=== PATIENT | male | born 1960 | race Caucasian/White ===

== ENCOUNTER 2022-07-04 06:17 | Day surgery (SDC) | payer OTHER, SELFPAY ==
[2022-07-04 06:19] VITALS: BMI 40.8
[2022-07-04 06:32] VITALS: BP 163/89; PULSE 100; RESP 18; TEMP 36.6; O2SAT 95
[2022-07-04] MEDS: Lactated Ringers 1,000 ML 100 ML IVCONT (07:05)
--- NOTE | 2022-07-04 07:37 | MHC.SHP ---
Pre-Procedural Eval Section A Date of Service: 07/04/22 Section B Chief Complaint: Generalized abdominal pain,screening,reflux diseas Details of Present Illness: see H*P no changes Relevant Family History (Specify if Yes): No Relevant Social History: None Present Medications: see Short Stay Collaborative assessment Medical History: No relevant PMH History of Previous Operations: No relevant previous surgery Allergies: Allergies Allergy/AdvReac Type Severity Reaction Status Date / Time Sulfa (Sulfonamide Allergy Unknown HIVES Verified 07/04/22 07:08 Antibiotics) [SULFA (SULFONAMIDE ANTIBIOTICS)] lisinopril Allergy Wheezing Verified 07/04/22 07:07 sulfamethoxazole Allergy Weakness Verified 07/04/22 07:07 [From Bactrim] trimethoprim [From Bactrim] Allergy Weakness Verified 07/04/22 07:07 Review of Systems Sugical H&P ROS: Negative: Constitution, Cardiovascular, Respiratory, Neurological, Psychiatric, Hem-Onc, Allergic/Immunologic, Gastrointestinal, Genitourinary, Musculoskeletal, Integumentary, Endocrine and Eyes/Ears/Nose/Throat Exam Surgical H&P Exam: Normal: HEENT, Normal: Heart, Normal: Lungs, Normal: Extremities, Normal: Abdomen, Normal: Skin and Normal: Neurological Plan Diagnosis/Plan: Unchanged I have reviewed the history and physical and performed a pertinent physical examination on my patient. No changes have occurred unless specified. Time Spent With Patient Time: Total time managing care of this patient today ____ minutes.
[2022-07-04 08:19] VITALS: BP 117/73; PULSE 108; RESP 16; TEMP 36.2; O2SAT 94
--- NOTE | 2022-07-04 08:29 | PM.OP ---
Brief Operative Note Date of Service: 07/04/22 Pre-op diagnosis: gerd, screening Post-op diagnosis: same Procedure: egd colonoscopy Surgeon: Reyes Laws Anesthesia: MAC Was an Commercial Loan Officer used for this Procedure?: No Estimated blood loss (mL): 5 Pathology: other Condition: stable Disposition: PACU
[2022-07-04 08:34] VITALS: BP 132/70; PULSE 80; RESP 16; TEMP 36.5; O2SAT 96
--- NOTE | 2022-07-04 08:56 | OP_ITS ---
SURGEON: Reyes Laws MD INDICATIONS: Abdominal pain, gastroesophageal reflux disease and colon cancer screening. PREOPERATIVE DIAGNOSIS: POSTOPERATIVE DIAGNOSIS: PROCEDURE PERFORMED: ESTIMATED BLOOD LOSS: COMPLICATIONS: ANESTHESIA: Monitored anesthesia care. ASSISTANTS: SPECIMENS: PROCEDURE: Upper endoscopy with biopsy, colonoscopy to the terminal ileum with biopsy. DESCRIPTION OF PROCEDURE: Date 07/04/22. History and physical performed. The risks and benefits of the procedure were explained to the patient. Informed consent was obtained. The patient was placed in left lateral decubitus position. The Olympus video gastroscope was introduced into the esophagus, stomach, and duodenum. Examination was performed. The scope was removed. He tolerated the procedure well and was repositioned for colonoscopy. A digital rectal exam was performed and was found to be normal. The Olympus pediatric video colonoscope was introduced into the rectum and advanced to the cecum without difficulty. The cecum was identified by transillumination, palpation, and identification of ileocecal valve. Examination was performed. The scope was removed. He tolerated the procedure well and was transferred to recovery area in stable condition. FINDINGS: UPPER ENDOSCOPY: Esophagus: The esophagus was normal. Biopsies were obtained from the EG junction. Stomach: The stomach showed several benign-appearing gastric polyps. The largest measured approximately 10 mm. These were in the body and fundus consistent with fundic gland polyps. Biopsies were obtained from 2 of the polyps. Antral biopsies were obtained to evaluate for H pylori. Duodenum: The bulb and second portion were normal. COLONOSCOPY: The terminal ileum was examined and appeared normal. The visualized colonic mucosa was normal. The quality of prep was good. There was a single polyp in the right colon measuring less than 5 mm, which was removed with biopsy forceps. No other polyps were identified. There was moderate diverticulosis of the sigmoid. The quality of the prep was good. Retroflexed examination showed moderate-sized internal hemorrhoids. IMPRESSION: 1. Gastroesophageal reflux disease. 2. Gastric polyps. 3. Colon polyp. RECOMMENDATION: Follow up the biopsy results. MD FAISAL Jolley/LEXI / [id number] MTDAna
--- NOTE | 2022-07-04 12:53 | HO.ANESPROP2 ---
FORMERLY [facility] Past Medical History Medical History (Updated 07/03/22 @ 11:51 by Stephanie Lux RN) Asthma Diverticulitis Diverticulosis GERD (gastroesophageal reflux disease) HTN (hypertension) Hyperlipidemia Hypothyroidism Family History Family history of problems with anesthesia: No Surgical History Surgical History (Updated 07/03/22 @ 11:51 by Stephanie Lux RN) H/O cardiac catheterization H/O colonoscopy H/O esophagogastroduodenoscopy History of Problems with Anesthesia: No Social History Social History Patient Tobacco Use Status: Former Tobacco user Are you DNR?: No Advance Directives: No Advance Directives Information Provided: Yes Recently lost weight without trying: No Nutrition Risks: No Nutritional Risk Meds Allergies Allergy/AdvReac Type Severity Reaction Status Date / Time Sulfa (Sulfonamide Allergy Unknown HIVES Verified 07/04/22 07:08 Antibiotics) [SULFA (SULFONAMIDE ANTIBIOTICS)] lisinopril Allergy Wheezing Verified 07/04/22 07:07 sulfamethoxazole Allergy Weakness Verified 07/04/22 07:07 [From Bactrim] trimethoprim [From Bactrim] Allergy Weakness Verified 07/04/22 07:07 Home Medications Medication Instructions Recorded Confirmed Last Taken Type albuterol sulfate 90 mcg/actuation 1 puff inhalation Q3-6H PRN 07/03/22 07/04/22 06/27/22 History aerosol inhaler Wheezing amlodipine 10 mg tablet 1 tab PO DAILY 07/03/22 07/03/22 07/03/22 History aspirin 81 mg tablet,delayed 81 mg PO DAILY 07/03/22 07/04/22 06/27/22 History release levothyroxine 75 mcg tablet 1 tab PO DAILY 07/03/22 07/03/22 07/03/22 History rosuvastatin 10 mg tablet 1 tab PO BEDTIME 07/03/22 07/03/22 07/03/22 History valsartan 50 mg PO DAILY 07/03/22 07/04/22 07/03/22 History Exam Exam Date and Time: July 04, 2022 1253 Height,Weight and Vital Signs: Height 5 ft 4 in Weight 107.955 kg Last Vital Signs Temp 97.7 F 07/04/22 08:34 Pulse 80 07/04/22 08:34 Resp 16 07/04/22 08:34 BP 132/70 07/04/22 08:34 Pulse Ox 96 07/04/22 08:34 O2 Del Method 07/04/22 08:34 Airway Mallampati Class: II TM Dist: >3cm Partial: Upper Heart: rr Lungs: cta Assessment and Plan Final Anesthetic Review Family History of Problems with Anesthesia: No History of Problems with Anesthesia: No NPO: Yes ASA Class: II Final Preanesthetic Review: No Changes in Pt Med Stat, Meds/Allgs Chart Reviewed, Consent Obtained/Reviewed and Anes Risks/Benef Reviewed Patient Risk: Low Procedure Risk: Low Anesthetic Plan Anesthetic Plan: MAC: Disposition: Standard PACU
== END 2022-07-04 10:31 | disposition home or self-care (01) ==
PROVIDERS: PCP Internal Medicine; Visit Provider Internal Medicine Gastroenterology
PROC: (CPT 45380; principal; 2022-07-04 07:30)
DX: Z12.11 Encounter for screening for malignant neoplasm of colon (principal); Z83.71 Family history of colonic polyps; K63.5 Polyp of colon; K57.30 Diverticulosis of large intestine without perforation or abscess without bleeding; K64.8 Other hemorrhoids; R10.84 Generalized abdominal pain; K21.9 Gastro-esophageal reflux disease without esophagitis; K31.7 Polyp of stomach and duodenum; Z87.19 Personal history of other diseases of the digestive system; I10 Essential (primary) hypertension; E78.00 Pure hypercholesterolemia, unspecified; E03.9 Hypothyroidism, unspecified; J45.909 Unspecified asthma, uncomplicated; Z79.82 Long term (current) use of aspirin; Z79.899 Other long term (current) drug therapy; Z88.1 Allergy status to other antibiotic agents; Z88.2 Allergy status to sulfonamides; Z87.891 Personal history of nicotine dependence; Z86.16 Personal history of COVID-19
CPT/HCPCS: 45380; 43239; 88305; 88342; J2370

== ENCOUNTER 2022-07-30 08:23 | Outpatient (REF) | payer OTHER, SELFPAY ==
--- NOTE | ~2022-07-30 | US_ITS ---
EXAMINATION: US ABDOMEN COMPLETE CLINICAL INFORMATION: Abdominal pain. COMPARISON: X-ray abdomen KUB 02/21/2020. CT abdomen and pelvis 09/09/2017. Ultrasound abdomen 05/02/2013. TECHNIQUE: Real-time imaging of the abdominal viscera. FINDINGS: PANCREAS: The pancreas appears unremarkable, without masses or ductal dilatation, with the exception of the tail which is obscured by bowel gas. ABDOMINAL AORTA: The proximal, mid, and distal segments are normal in caliber. INFERIOR VENA CAVA: Visualized portions are normal. LIVER: The liver is enlarged measuring at least 19 cm in greatest dimension. The liver contour is normal. There is diffuse increased liver parenchymal echogenicity, consistent with hepatic steatosis. No focal hepatic lesion. There is no intrahepatic biliary duct dilatation seen. GALLBLADDER: Normal. The gallbladder is physiologically distended without evidence of stones, sludge, polyps, wall thickening or pericholecystic fluid. COMMON BILE DUCT: Normal in caliber measuring 0.7 cm in diameter. RIGHT KIDNEY: A 1.7 cm benign Bosniak class I parapelvic renal cyst is present which needs no additional imaging or followup. No solid renal masses. No hydronephrosis or renal calculi. The kidney measures 11.5 cm in maximum dimension. LEFT KIDNEY: Normal. No hydronephrosis. No renal calculi or focal parenchymal lesions. The kidney measures 11.4 cm in maximum dimension. SPLEEN: Normal. The spleen measures 10.9 cm in maximum dimension. FREE FLUID: None. US/US abdomen complete IMPRESSION: Enlarged fatty liver. Similar findings were present on the 09/09/2017 CT scan.
== END 2022-07-30 08:24 | disposition home or self-care (01) ==
LOC: HO.US 08:23
PROVIDERS: PCP Internal Medicine; Visit Provider Internal Medicine Gastroenterology
DX: R10.84 Generalized abdominal pain (principal)
CPT/HCPCS: 76700

== ENCOUNTER 2023-08-20 03:42 | Emergency (ER) | payer OTHER, SELFPAY ==
--- NOTE | ~2023-08-20 | US_ITS ---
EXAMINATION: US ABDOMEN LIMITED CLINICAL INFORMATION: Right upper quadrant pain. COMPARISON: CT scan of September 09, 2017 TECHNIQUE: Real-time imaging of the right upper quadrant abdominal viscera. FINDINGS: PANCREAS: Unremarkable. No abnormal mass or peripancreatic inflammatory change. LIVER: The liver is normal in size. The liver contour is normal. There is homogeneously increased echogenicity consistent with fatty infiltration. No focal hepatic lesion. There is no intrahepatic biliary duct dilatation seen. GALLBLADDER: Normal. The gallbladder is physiologically distended without evidence of stones, sludge, polyps, wall thickening or pericholecystic fluid. COMMON BILE DUCT: Normal in caliber measuring 0.7 cm in diameter. RIGHT KIDNEY: Normal. No hydronephrosis. No renal calculi or focal parenchymal lesions. The kidney measures 10.7 cm in maximum dimension. FREE FLUID: None. US/US abdomen limited IMPRESSION: Diffuse fatty infiltration of the liver. No evidence of acute pancreatitis, acute cholecystitis, or biliary ductal dilatation.
--- NOTE | ~2023-08-20 | XR_ITS ---
EXAMINATION: XR CHEST CLINICAL INFORMATION: Chest pain. COMPARISON: 09/19/2016. TECHNIQUE: 2 views of the chest were obtained. FINDINGS: The cardiomediastinal silhouette is stable. There is right middle lobe scarring. Lungs are otherwise clear. The bony structures and soft tissues are unremarkable. XR/XR chest 2V IMPRESSION: Right middle lobe scarring. No acute cardiopulmonary process.
[2023-08-20 03:48] VITALS: BP 177/81; PULSE 80; RESP 14; TEMP 36.7; O2SAT 97; BMI 43.7
--- NOTE | 2023-08-20 03:50 | ECG_ITS ---
Test Reason : chest pain Blood Pressure : / mmHG Vent. Rate : 072 BPM Atrial Rate : 072 BPM P-R Int : 192 ms QRS Dur : 102 ms QT Int : 396 ms P-R-T Axes : 053 000 055 degrees QTc Int : 433 ms Normal sinus rhythm with sinus arrhythmia Inferior infarct (cited on or before 09-SEP-2017) Abnormal ECG When compared with ECG of 21-FEB-2020 21:10, No significant change was found Referred By: Generic ED Physician Electronically Signed By:BO YANES
[2023-08-20 04:10] LABS: MANUAL DIFF FLAG NO
[2023-08-20 04:13] LABS: Basophils Absolute Auto 0.1 X10*3/uL (0.0-0.2); Basophils Percent Auto 0.6 % (0-2); Eosinophils Absolute Auto 0.2 X10*3/uL (0.0-0.4); Eosinophils Percent Auto 2.5 % (0-4); Hematocrit 46.2 % (42.0-52.0); Hemoglobin 16.1 g/dl (14.0-18.0); Imm Gran Abs Auto 0.05 X10*3/uL (0.00-0.03); Imm Gran Pct Auto 0.6 % (0.0-0.4); Lymphocytes Absolute Auto 2.3 X10*3/uL (1.2-4.9); Mean Corpuscular HGB Conc 34.8 g/dl (31.0-36.0); Mean Corpuscular Hemoglobin 30.4 pg (27.0-33.0); Mean Corpuscular Volume 87.3 fL (80.0-98.0); Mean Platelet Volume 9.3 fL (9.4-12.4); Monocytes Absolute Auto 0.6 X10*3/uL (0.1-1.2); Monocytes Percent Auto 7.7 % (2-11); Neutrophils Absolute Auto 4.9 x10*3/uL (2.0-8.3); Neutrophils Percent Auto 60.6 % (45-73); Platelet Count 248 X10*3/uL (160-400); Red Blood Count 5.29 X10*6/uL (4.60-5.80); Red Cell Distribution Width 11.8 % (11.0-16.0); White Blood Count 8.1 X10*3/uL (4.8-10.8)
[2023-08-20 04:28] LABS: Alanine Aminotransferase 91 U/L (0-40); Albumin Level 4.3 g/dL (3.5-5.0); Alkaline Phosphatase 62 U/L (39-117); Anion Gap 12 (12-20); Aspartate Amino Transferase 35 U/L (5-37); Bilirubin Total 0.5 mg/dL (0.0-1.0); Blood Urea Nitrogen 18 mg/dL (9-16); Calcium 9.9 mg/dL (8.4-10.2); Carbon Dioxide 25 mmol/L (22-29); Chloride 107 mmol/L (96-108); Estimated Glomerular Filt Rate > 60; Glucose Random 170 mg/dL (60-115); Potassium 3.6 mmol/L (3.3-5.1); Sodium 140 mmol/L (135-145); Total Protein 6.9 g/dL (6.5-8.0)
--- OUTSIDE RECORDS SUMMARY | 2023-08-20 04:32 | XMS_ITS | Continuity of Care Document ---
Author Name Unknown Organization [facility] ter Address [address] [place] [address]- Care Team Providers Care Library Specialist Name Role Phone Juanjo RODRIGUEZ MD, Jose Etienne Primary Care Physician [phone] [place] [facility] Date(s[place] 11/15/20 - 11/15/[address] [address]- Encounter Diagnosis Dental abscess(Final) - 11/15/20 Discharge Disposition: A-D/C Home Attending Physician: Trevor Garcia MD Admitting Physician: Trevor Garcia MD Referring Physician: Not on Staff, Referring MD Allergies, Adverse Reactions, Alerts Substance Reaction Severity Status sulfADIAZINE flu like symptoms Active Augmentin Active Bactrim Active Medications albuterol 90 mcg/inh inhalation aerosol 2, puffs, Inhalation, Every 4 hours, Scheduled / PRN, 34, Gm, 0, 0, 09/14/06 12:24:00, as needed for wheezing, Print BRITTANI Number, [facility] [address] [place] [address], [address] Start Date: 09/14/06 Status: Ordered aspirin 81 mg oral enteric coated tablet 81 mg, 1, tablet, By Mouth, 0 Refills, Maintenance Start Date: 08/06/06 Status: Ordered BuPROpion = 200 mg, By Mouth, Daily, 0 Refills, Maintenance Start Date: 01/08/12 Status: Ordered Lipitor 20 mg oral tablet 1 tablet = 20 mg, By Mouth, Daily at bedtime, 0 Refills, Maintenance Start Date: 01/08/12 Status: Ordered Losartan Tablet 50 mg, By Mouth, Daily, Maintenance, 04/04/11 12:02:37 Start Date: 04/04/11 Status: Ordered Multivitamin 1 tablet, By Mouth, Daily, 0 Refills, Maintenance Start Date: 04/04/11 Status: Ordered omeprazole 20 mg oral enteric coated capsule 20, mg, 1, capsule, By Mouth, Daily, 30 capsule, 7, 7, 08/06/06 10:32:57, GERD, Print BRITTANI Number, [address] [address], [phone], Constant Indicator Start Date: 08/06/06 Stop Date: 04/03/07 Status: Ordered probiotics probiotics, 1, tablet, By Mouth, Daily, Refills 0, Maintenance, 04/04/11 14:46:59 Start Date: 04/04/11 Status: Ordered Vitamin C TR 1000 mg oral tablet 1 tablet = 1,000 mg, By Mouth, Daily, 0 Refills, Maintenance Start Date: 04/04/11 Status: Ordered Problem List Condition Effective Dates Status Health Status Inform ant Gastric reflux(Confirmed) 08/06/06 Active Hypercholesterolemia(Confirmed) Active Hypertension(Confirmed) Active Vital Signs Most recent to oldest [Reference Range]: 1 2 3 Height 163 cm (11/15/20 4:14 PM) 163 cm (11/15/20 12:28 PM) 163 cm (11/15/20 12:18 PM) Weight 109.5 kg (11/15/20 4:14 PM) 109.5 kg (11/15/20 12:28 PM) 109.5 kg (11/15/20 12:18 PM) Oxygen Saturation [94-100 %] 99 % (11/15/20 12:18 PM) 100 % (11/15/20 12:07 PM) Pulse Rate [55-90 bpm] 101 bpm *H* (11/15/20 12:18 PM) 104 bpm *H* (11/15/20 12:07 PM) Body Mass Index [18.5-24.99] 41.21 *>HHI* (11/15/20 12:18 PM) Blood Pressure [90-138/55-84 mm Hg] 156/99mm Hg *H* (11/15/20 12:18 PM) Respiratory Rate [16-30 br/min] 18 br/min (11/15/20 12:18 PM) Temperature [96.8-100.4 DegF] 98.6 DegF (11/15/20 12:18 PM) Mode of Delivery (Oxygen) Room air (11/15/20 12:18 PM) Blood pressure sites Arm, right (11/15/20 12:18 PM) Temperature Route Oral (11/15/20 12:18 PM) Dry Weight 109.5 kg (11/15/20 4:14 PM) 109.5 kg (11/15/20 12:28 PM) 109.5 kg (11/15/20 12:18 PM) Weight Obtained Via Patient/family state d (11/15/20 12:18 PM) Dry Weight Obtained Via Patient/family s tated (11/15/20 12:18 PM)
--- OUTSIDE RECORDS SUMMARY | 2023-08-20 04:32 | XMS_ITS | Continuity of Care Document ---
Author Name Unknown Organization [facility] ter Address [address] [place] [address]- Care Team Providers Care Lining Cementer Name Role Phone Juanjo RODRIGUEZ MD, Jose Etienne Primary Care Physician Encounter [facility] Date(s): 07/10/21 - 07/10/[address] [address]- Encounter Diagnosis Chest pain(Final) - 07/10/21 Discharge Disposition: A-D/C Home Attending Physician: Elizabet Ibrahim MD Admitting Physician: Elizabet Ibrahim MD Referring Physician: Not on Staff, Referring MD Allergies, Adverse Reactions, Alerts Substance Reaction Severity Status sulfADIAZINE flu like symptoms Active lisinopril Active Augmentin Active Bactrim Active Medications albuterol 90 mcg/inh inhalation aerosol 2, puffs, Inhalation, Every 4 hours, Scheduled / PRN, 34, Gm, 0, 0, 09/14/06 12:24:00, as needed for wheezing, Print BRITTANI Number, [facility] [address] [place] [address], [address] Start Date: 09/14/06 Status: Ordered aspirin [...] 7, 08/06/06 10:32:57, GERD, Print BRITTANI Number, [address] [address], [phone], Constant Indicator Start Date: 08/06/06 Stop Date: [...] reflux(Confirmed) 08/06/06 Active Hypercholesterolemia(Confirmed) Active Hypertension(Confirmed) Active Results Radiology Reports * Exam Date Time Procedure Performing Provider Status 07/10/21 6:53 AM Chest Portable Nano Lubin; Auth (Verified) Notes: (Chest Portable) Reason For Exam: Chest Pain;Other: RESULT: Chest Portable Chest Portable Hx of Present Illness: CP; Reason: Other:; Chest Pain; Clinical Question(s): CHF COMPARISON: 01/23/2013 FINDINGS: LINES AND TUBES: None. LUNGS AND PLEURA: Low lung volumes with mild basilar atelectasis an accentuation of central vascular markings. No consolidation or volume loss. Central vascular markings are prominent. No pleural effusion. No pneumothorax. HEART, MEDIASTINUM AND SUSANNAH: Heart is normal in size. Normal upper mediastinal and hilar contour. BONES AND SOFT TISSUES: No acute abnormality. IMPRESSION: Low lung volumes and bibasilar atelectasis. Mild prominence of central vascular markings likely dueto positioning and low inspiratory volume. No edema or effusions. WSN: [id number] Ordering Physician: Lissette Austin Dictated By: Deni Prieto MD Dictated Date/Time: 07/10/21 6:57 am Reviewed By: Deni Prieto MD Signed By: Deni Prieto MD Signed Date/Time: 07/10/21 6:57 am Transcribed By: CSB Transcribed Date/Time: 07/10/21 6:56 am Vital Signs Most recent to oldest [Reference Range]: 1 2 3 Oxygen Saturation [94-100 %] 94 % (07/10/21 10:07 AM) 96 % (07/10/21 8:15 AM) 98 % (07/10/21 6:22 AM) Pulse Rate [55-90 bpm] 78 bpm (07/10/21 10:07 AM) 75 bpm (07/10/21 8:15 AM) 88 bpm (07/10/21 6:22 AM) Blood Pressure [90-138/55-84 mm Hg] 139/72mm Hg *H* (07/10/21 10:07 AM) 125/69mm Hg (07/10/21 8:15 AM) 145/72mm Hg *H* (07/10/21 6:22 AM) Respiratory Rate [16-30 br/min] 22 br/min (07/10/21 10:07 AM) 18 br/min (07/10/21 8:15 AM) 16 br/min (07/10/21 6:22 AM) Temperature [96.8-100.4 DegF] 97.9 DegF (07/10/21 10:07 AM) 97.9 DegF (07/10/21 8:15 AM) 97.8 DegF (07/10/21 6:22 AM) Mode of Delivery (Oxygen) Room air (07/10/21 10:07 AM) Room air (07/10/21 8:15 AM) Room air (07/10/21 6:22 AM) Blood pressure sites Arm, left (07/10/21 10:07 AM) Temperature Route Oral (07/10/21 10:07 AM) Oral (07/10/21 8:15 AM) Oral (07/10/21 6:22 AM)
--- OUTSIDE RECORDS SUMMARY | 2023-08-20 04:32 | XMS_ITS | Continuity of Care Document ---
Author Name Unknown Organization [facility] [place] Address [address] [place] [address]- Care Team Providers Care Sleeve Setter Safety Stitch Name Role Phone Ally MUSA, Stephany Longo Primary Care Physician Encounter [facility] Date(s): 04/28/22 - 07/19/22 [facility] [place] [address] [place], [place] [address] Attending Physician: Salma Lopez MD Allergies, Adverse Reactions, Alerts Substance Reaction Severity Status sulfADIAZINE flu like symptoms Active lisinopril Active Augmentin Active Bactrim Active Medications albuterol 90 mcg/inh inhalation aerosol 2, puffs, Inhalation, Every 4 hours, Scheduled / PRN, 34, Gm, 0, 0, 09/14/06 12:24:00, as needed for wheezing, Print BRITTANI Number, [facility] [address] [place] [address], [address] Start Date: 09/14/06 Status: Ordered aspirin [...] 7, 08/06/06 10:32:57, GERD, Print BRITTANI Number, [facility] [address] [place] [address], [phone], Constant Indicator Start Date: 08/06/06 Stop Date: 04/03/07 Status: Ordered probiotics probiotics, 1, tablet, By Mouth, Daily, Refills 0, Maintenance, 04/04/11 14:46:59 Start Date: 04/04/11 Status: Ordered Vitamin C TR 1000 mg oral tablet 1 tablet = 1,000 mg, By Mouth, Daily, 0 Refills, Maintenance Start Date: 04/04/11 Status: Ordered Problem List Condition Confirmation Course Effective Dates Status H ealth Status Informant Gastric reflux Confirmed 08/06/06 Active Hypercholesterolemia Confirmed Active Hypertension Confirmed Active Severe obesity Confirmed Active Patient Care team information Care Team Personnel Name: Ally MUSA , Stephany Longo Position: [facility] Physician -Physician Practices Member Role: PCP Address: Address: [address] [place] [phone]- Care Team Related Persons Name: RONY ASHBY Name: DARYA ASHBY Address: [place] [address] Name: BLANE CASTANEDA Address: home [address] [place] [id number]
--- OUTSIDE RECORDS SUMMARY | 2023-08-20 04:32 | XMS_ITS | Continuity of Care Document ---
Author Name Unknown Organization [facility] [place] Address [address] [place] [address]- Care Team Providers Care Health Safety Instructor Name Role Phone Ally MUSA, Stephany Longo Primary Care Physician Encounter [facility] Date(s): 04/28/22 - 05/28/22 [facility] [place] [address] [place], [place] [address] Allergies, Adverse Reactions, Alerts Substance Reaction Severity Status sulfADIAZINE flu like symptoms Active lisinopril Active Augmentin Active Bactrim Active Medications albuterol 90 mcg/inh inhalation aerosol 2, puffs, Inhalation, Every 4 hours, Scheduled / PRN, 34, Gm, 0, 0, 09/14/06 12:24:00, as needed for wheezing, Print BRITTANI Number, [facility] [address] [place] [address], [address] Start Date: 09/14/06 Status: Ordered aspirin [...] 7, 08/06/06 10:32:57, GERD, Print BRITTANI Number, [facility] [address] [place] [address], [phone], Constant Indicator Start Date: 08/06/06 Stop Date: [...] Name: Ally MUSA , Stephany Longo Position: [facility] Physician -Physician Practices Member Role: PCP Address: Address: [address] [place] [phone]- Care Team Related Persons Name: RONY ASHBY Name: DARYA ASHBY Address: [place] [address] Name: BLANE CASTANEDA Address: home [address] [place] [address]
--- OUTSIDE RECORDS SUMMARY | 2023-08-20 04:32 | XMS_ITS | Continuity of Care Document ---
Author Name Unknown Organization [facility] [place] Address [address] [place] [address]- Care Team Providers Care Telepathist Name Role Phone Ally MUSA, Stephany Longo Primary Care Physician Encounter [facility] Date(s): 04/29/22 - 05/29/22 [facility] [place] [address] [place], [place] [address] Allergies, Adverse Reactions, Alerts Substance Reaction Severity Status sulfADIAZINE flu like symptoms Active lisinopril Active Augmentin Active Bactrim Active Medications albuterol 90 mcg/inh inhalation aerosol 2, puffs, Inhalation, Every 4 hours, Scheduled / PRN, 34, Gm, 0, 0, 09/14/06 12:24:00, as needed for wheezing, Print BRITTANI Number, [facility] [address] [place] [address], [address] Start Date: 09/14/06 Status: Ordered aspirin [...] 7, 08/06/06 10:32:57, GERD, Print BRITTANI Number, [facility] [address] [place] [address], [phone], Constant Indicator Start Date: 08/06/06 Stop Date: [...] Name: Ally MUSA , Stephany Longo Position: [facility] Physician -Physician Practices Member Role: PCP Address: Address: [address] [place] [address]- Care Team Related Persons Name: RONY ASHBY Name: DARYA ASHBY Address: [place] [address] Name: BLANE CASTANEDA Address: home [address] [place] [address]
--- OUTSIDE RECORDS SUMMARY | 2023-08-20 04:32 | XMS_ITS | Patient Health Record ---
Author Name Unknown Organization [facility] Address [address] [place] [id number] Care Team Providers Care Table Machine Operator Name Role Phone Jose Geiger MD Primary Care Provider Reyes Cm Jr Unavailable ALLERGIES Allergen (clinical drug ingredient) Drug/Non Drug Allergy documented on EMR Reaction Allergy Type Onset Date Status lisinopril Lisinopril Unknown Drug Allergy Activ e Substance with sulfonamide structure and antibacterial mechanism of action (substance) sulfa (uncoded) Unknown Allergy Active sulfamethoxazole / trimethoprim Bactrim (uncoded) Unknown Allergy Active REASON FOR REFERRAL No Information MEDICATIONS Medication SIG (Take, Route, Frequency, Duration) Notes Start Date End Date Status Pantoprazole Sodium 40 MG 1 tablet Orall y Once a day for 30 day(s) 04/13/2013 Active Rosuvastatin Calcium 10 MG Oral for 90 Active Aspir-81 81mg Active Valsartan Active Multi Vitamin/Minerals Active Levothyroxine Sodium 75 MCG Oral for 90 Active amLODIPine Besylate 10 MG Oral for 90 Active NAC Active Losartan Potassium 100 MG Oral for 90 Active Mahnomen 3 Active Probiotic Active Fiber Active Albuterol Sulfate HFA Active Dicyclomine HCl 20 MG TAKE 1 TABLET BY M OUTH EVERY 6 HOURS NEEDED FOR ABDOMINAL PAIN/CRAMPS/DISCOMFORT for 90 Active Indapamide 1.25 MG Oral for 90 Active IMMUNIZATIONS Vaccine Route Administration Date Status Comme nts Influenza Unknown 05/22/2022 Refused SOCIAL HISTORY Sex Assigned At : Social History Observation Description Sex Assigned At Unknown PROBLEMS Problem Type ICD Code Onset Dates Problem Status W/U Status Risk SNOMED Code Notes Problem Colon cancer screening (Z12.11) Active confirmed 040098686 Problem Esophageal reflux (K21.9) Active confirmed Esophageal reflux (519208696) Problem Generalized abdominal pain (R10.84) Active confirmed 849370650 Problem Gastroesophageal reflux disease without esophagitis (K21.9) Active confirmed 547923872 Problem Fatty liver (K76.0) Active confirmed [address] scan, colon (R93.3) Active confirmed 163371991 Problem Irritable bowel syndrome with constipation and diarrhea (K58.2) Active confirmed 35928336 Encounters Encounter Location Date Provider Diagnosis [facility] [address] [place] [address] 03/05/2023 Reyes Laws Jr Gastroesophageal reflux disease without esophagitis K21.9 ; Irritable bowel syndrome with constipation and diarrhea K58.2 and Fatty liver K76.0 [facility] [address] [place] [address] [address] [place] [address] 07/07/2023 Reyes Laws Jr ASSESSMENTS Encounter Date Diagnosis Assessment Notes Treatment Notes Treatment Clinical Notes 03/05/2023 Gastroesophageal reflux disease without esophagitis (ICD-10 - K21.9) Gastroesophageal reflux disease material was printed 03/05/2023 Irritable bowel syndrome with constipation and diarrhea (ICD-10 - K58.2) 03/05/2023 Fatty liver (ICD-10 - K76.0) PLAN OF TREATMENT Pending Test Test Name Order Date XR GI SERIES 02/13/2012 US ABD 05/22/2022 Future Test Test Name Order Date UPPER GI ENDOSCOPY 03/11/2017 COLONOSCOPY 03/11/2017 UPPER GI ENDOSCOPY 05/22/2022 COLONOSCOPY 05/22/2022 Next Appt Details Provider Name:Reyes garrido Jr, 03/07/2024 09:00:00 AM, [address] [place] [address], [address], [place], [address], Insurance Providers Payer Name Payer Address Payer Phone Subscriber Number Group Number Insured Name Patient Relationship to Insured Coverage Start Date Coverage End Date [facility] [address] [place] [phone] [id number] MERVAT CANALES Self - patient is the insured MEDICAL (GENERAL) HISTORY Medical History History ICD Code Colonoscopy 07/04, lymphoid polyp, ten-y ear followup Gastroesophageal reflux disease, EGD , no HP/BE Diverticulitis Hypertension Hyperlipidemia Asthma Cardiac catheterization at [facility], no significant disease per patient hypothyroidism Surgical History Surgery Date(Month/Year) Hospitalization History Reason Date(Month/Year) twice in ER, for stomach pain.
--- OUTSIDE RECORDS SUMMARY | 2023-08-20 04:32 | XMS_ITS | Continuity of Care Document ---
Author Name Unknown Organization [facility] [place] Address [address] [place] [address]- Care Team Providers Care Spool Sorter Name Role Phone Ally MUSA, Stephany Longo Primary Care Physician Encounter [facility] Date(s): 06/19/22 - 07/19/22 [facility] [address] [address] Attending Physician: Elías Lama Admitting Physician: Elías Lama Referring Physician: AdmtrElías Allergies, Adverse Reactions, Alerts Substance Reaction Severity Status sulfADIAZINE flu like symptoms Active lisinopril Active Augmentin Active Bactrim Active Medications albuterol 90 mcg/inh inhalation aerosol 2, puffs, Inhalation, Every 4 hours, Scheduled / PRN, 34, Gm, 0, 0, 09/14/06 12:24:00, as needed for wheezing, Print BRITTANI Number, [facility] [address] [place] [address], [address] Start Date: 09/14/06 Status: Ordered aspirin [...] 7, 08/06/06 10:32:57, GERD, Print BRITTANI Number, [facility] [address] [place] [address], [phone], Constant Indicator Start Date: 08/06/06 Stop Date: [...] Name: Ally MUSA , Stephany Longo Position: [facility] Physician -Physician Practices Member Role: PCP Address: Address: [address] [place] [address]- Care Team Related Persons Name: RONY ASHBY Name: DARYA ASHBY Address: [place] [address] Name: BLANE CASTANEDA Address: home [address] [place] [address]
--- OUTSIDE RECORDS SUMMARY | 2023-08-20 04:32 | XMS_ITS | Continuity of Care Document ---
Author Name Unknown Organization [facility] ter Address [address] [place] [address]- Care Team Providers Care Clerical Order Filler Name Role Phone Juanjo RODRIGUEZ MD, Jose Etienne Primary Care Physician [place] [facility] Date(s[place] 04/24/22 - 04/24/[address] [address]- Encounter Diagnosis Heart palpitations(Final) - 04/24/22 Discharge Disposition: A-D/C Home Attending Physician: Lacie Garza MD Admitting Physician: Lacie Garza MD Referring Physician: Not on Staff, Referring MD Allergies, Adverse Reactions, Alerts Substance Reaction Severity Status sulfADIAZINE flu like symptoms Active lisinopril Active Augmentin Active Bactrim Active Medications albuterol 90 mcg/inh inhalation aerosol 2, puffs, Inhalation, Every 4 hours, Scheduled / PRN, 34, Gm, 0, 0, 09/14/06 12:24:00, as needed for wheezing, Print BRITTANI Number, [facility] [address] [place] [address], 51 Start Date: 09/14/06 Status: Ordered aspirin [...] 7, 08/06/06 10:32:57, GERD, Print BRITTANI Number, [facility] [address] [place] [address], [phone], Constant Indicator Start Date: 08/06/06 Stop Date: [...] Hypertension Confirmed Active Severe obesity Confirmed Active Results Radiology Reports * Exam Date Time Procedure Performing Provider Status 04/24/22 2:19 AM Chest 2 Views Frontal and Lat Elise , Anand; Auth (Verified) Notes: (Chest 2 Views Frontal and Lat) Reason For Exam: Chest Pain;Other: RESULT: Chest 2 Views Frontal and Lat Chest 2 Views Frontal and Lat Hx of Present Illness: earlier today felt heart racing for hours then left anterior chest pressure that rad to neck. mild dizziness. denies add'l sx. similar episode a few weeks ago with no acute findings; Reason: Other:; Chest Pain; Clinical Question(s): Other: COMPARISON: 04/14/2022 FINDINGS: No acute cardiopulmonary process IMPRESSION: No acute abnormality. WSN: [id number] Ordering Physician: Acosta Devine Dictated By: Jc Mcdonough MD Dictated Date/Time: 04/24/22 7:54 am Reviewed By: Jc Mcdonough MD Signed By: Jc Mcdonough MD Signed Date/Time: 04/24/22 7:54 am Transcribed By: RAMEZ Transcribed Date/Time: 04/24/22 7:53 am Vital Signs Most recent to oldest [Reference Range]: 1 2 3 Height 163 cm (04/24/22 8:51 AM) 163 cm (04/24/22 1:46 AM) Weight 107 kg (04/24/22 8:51 AM) 107 kg (04/24/22 1:46 AM) Oxygen Saturation [94-100 %] 96 % (04/24/22 8:51 AM) 98 % (04/24/22 7:02 AM) 99 % (04/24/22:32 AM) Pulse Rate [55-90 bpm] 67 bpm (04/24/22 8:51 AM) 74 bpm (04/24/22 7:02 AM) 74 bpm (04/24/22:32 AM) Body Mass Index [18.5-24.99 kg/m2] 40.27 kg/m2 *>HHI* (04/24/22 8:51 AM) Blood Pressure [90-138/55-84 mm Hg] 143/81mm Hg *H* (04/24/22 8:51 AM) 159/96mm Hg *H* (04/24/22 7:02 AM) 144/82mm Hg *H* (04/24/22:32 AM) Respiratory Rate [16-30 br/min] 16 br/min (04/24/22 8:51 AM) 16 br/min (04/24/22 1:46 AM) Temperature [96.8-100.4 DegF] 97.4 DegF (04/24/22 8:51 AM) 98 DegF (04/24/22 7:02 AM) 98 DegF (04/24/22:32 AM) Mode of Delivery (Oxygen) Room air (04/24/22 8:51 AM) Room air (04/24/22 7:02 AM) Room air (04/24/22:32 AM) Blood pressure sites Arm, left (04/24/22 8:51 AM) Arm, left (04/24/22 7:02 AM) Arm, left (04/24/22:32 AM) Temperature Route Oral (04/24/22 8:51 AM) Oral (04/24/22 7:02 AM) Oral (04/24/22 5:32 AM) Dry Weight 107 kg (04/24/22 8:51 AM) 107 kg (04/24/22 1:46 AM) Weight Obtained Via Standing scale (04/24/22 1:46 AM) Dry Weight Obtained Via Standing scale (04/24/22 1:46 AM) Note * BHSPowerscribe , DEIDRE S: TRANSCRIBE Jc Mcdonough MD: VERIFY Event Display: Result: Authored Date: [id number] Chest 2 Views Frontal and Lat Hx of Present Illness: earlier today felt heart racing for hours then left anterior chest pressure that rad to neck. mild dizziness. denies add'l sx. similar episode a few weeks ago with no acute findings; Reason: Other:; Chest Pain; Clinical Question(s): Other: COMPARISON: 04/14/2022 FINDINGS: No acute cardiopulmonary process IMPRESSION: No acute abnormality. WSN: [id number] Ordering Physician: Acosta Devine Dictated By: Jc Mcdonough MD Dictated Date/Time: 04/24/22 7:54 am Reviewed By: Jc Mcdonough MD Signed By: Jc Mcdonough MD Signed Date/Time: 04/24/22 7:54 am Transcribed By: RAMEZ Transcribed Date/Time: 04/24/22 7:53 am Patient Care team information Personnel Name: Jose Geiger III, MD Address: Address: [address] [place] [address]
--- OUTSIDE RECORDS SUMMARY | 2023-08-20 04:32 | XMS_ITS | Continuity of Care Document ---
Author Name Unknown Organization [facility] [place] Address [address] [place] [address]- Care Team Providers Care Buhr Mill Operator Name Role Phone Alyl MUSA, Stephany Longo Primary Care Physician Encounter [facility] Date(s): 04/28/22 - 05/28/22 [facility] [place] [address], [place] [address] Allergies, Adverse Reactions, Alerts Substance Reaction Severity Status sulfADIAZINE flu like symptoms Active lisinopril Active Augmentin Active Bactrim Active Medications albuterol 90 mcg/inh inhalation aerosol 2, puffs, Inhalation, Every 4 hours, Scheduled / PRN, 34, Gm, 0, 0, 09/14/06 12:24:00, as needed for wheezing, Print BRITTANI Number, [facility] [address] [place] [address], 51 Start Date: 09/14/06 Status: Ordered aspirin [...] 7, 08/06/06 10:32:57, GERD, Print BRITTANI Number, [facility] [address] [place] [address], [phone], Constant Indicator Start Date: 08/06/06 Stop Date: [...] Name: Ally MUSA , Stephany Longo Position: [facility] Physician -Physician Practices Member Role: PCP Address: Address: [address] [place] [address]- Care Team Related Persons Name: RONY ASHBY Name: DARYA ASHBY Address: [place] [address] Name: BLANE CASTANEDA Address: home [address] [place] [address]
--- OUTSIDE RECORDS SUMMARY | 2023-08-20 04:32 | XMS_ITS | Continuity of Care Document ---
Author Name Unknown Organization [facility] ter Address [address] [place] [address]- Care Team Providers Care Cashier Credit Name Role Phone Stephany Canales MD Primary Care Physician [place] [facility] Date(s): 12/27/22 - 12/27/[address] [address]- Discharge Disposition: A-D/C Walkout Attending Physician: Not on Staff, Attending MD Admitting Physician: Not on Staff, Admitting MD Referring Physician: Not on Staff, Referring MD Allergies, Adverse Reactions, Alerts Substance Reaction Severity Status sulfADIAZINE flu like symptoms Active lisinopril Active Augmentin Active Bactrim Active Medications albuterol 90 mcg/inh inhalation aerosol 2, puffs, Inhalation, Every 4 hours, Scheduled / PRN, 34, Gm, 0, 0, 09/14/06 12:24:00, as needed for wheezing, Print BRITTANI Number, [facility] [address] [place] [address] Start Date: 09/14/06 Status: Ordered aspirin [...] 7, 08/06/06 10:32:57, GERD, Print BRITTANI Number, [facility] [address] [place] [address], [phone], Constant Indicator Start Date: 08/06/06 Stop Date: [...] Hypertension Confirmed Active Severe obesity Confirmed Active Vital Signs Most recent to oldest [Reference Range]: 1 2 Oxygen Saturation [94-100 %] 97 % (12/27/22 1:34 PM) 94 % (12/27/22 1:19 PM) Pulse Rate [55-90 bpm] 87 bpm (12/27/22 1:19 PM) Blood Pressure [90-138/55-84 mm Hg] 148/ 84mm Hg *H* (12/27/22 1:19 PM) Respiratory Rate [16-30 br/min] 17 br/mi n (12/27/22 1:19 PM) Temperature [96.8-100.4 DegF] 98.4 DegF (12/27/22 1:19 PM) Liters per Minute 2 L/min (12/27/22 1:34 PM) Mode of Delivery (Oxygen) Nasal cannula (12/27/22 1:34 PM) Room air (12/27/22 1:19 PM) Blood pressure sites Arm, right (12/27/22 1:19 PM) Temperature Route Oral (12/27/22 1:19 PM) EKG study * Event Display: ECG 12-Lead Authored Date: Please click on pdf link to open report * Event Display: ECG 12-Lead Authored Date: Ventricular Rate: 90 BPM Atrial Rate: 90 BPM P-R Interval: 172 ms QRS Duration: 108 ms Q-T Interval: 364 ms QTC Calculation(Bazett): 445 ms P Mcdonald: 53 degrees R Mcdonald: -14 degrees T Mcdonald: 43 degrees Normal sinus rhythm 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
--- OUTSIDE RECORDS SUMMARY | 2023-08-20 04:32 | XMS_ITS | Continuity of Care Document ---
Author Name Unknown Organization [facility] ter Address [address] [place] [address]- Care Team Providers Care Heel Seat Trimmer Name Role Phone Juanjo RODRIGUEZ MD, Jose Etienne Primary Care Physician [phone] Encounter [facility] Date(s): 04/14/22 - 04/14/[address] [address]- Encounter Diagnosis IBS (irritable bowel syndrome)(Final) - 04/14/22 Hypertension(Final) - 04/14/22 Anxiety(Final) - 04/14/22 Pain, abdominal(Final) - 04/14/22 Pain, abdominal(Final) - 04/14/22 IBS (irritable bowel syndrome)(Final) - 04/14/22 Hypertension(Final) - 04/14/22 Anxiety(Final) - 04/14/22 Discharge Disposition: A-D/C Home Attending Physician: Jose MUSA, Trevor Diana Admitting Physician: Trevor Garcia MD Referring Physician: Not on Staff, Referring MD Allergies, Adverse Reactions, Alerts Substance Reaction Severity Status sulfADIAZINE flu like symptoms Active lisinopril Active Augmentin Active Bactrim Active Medications albuterol 90 mcg/inh inhalation aerosol 2, puffs, Inhalation, Every 4 hours, Scheduled / PRN, 34, Gm, 0, 0, 09/14/06 12:24:00, as needed for wheezing, Print BRITTANI Number, [facility] [address] [place] [address], 51 Start Date: 09/14/06 Status: Ordered aspirin 81 mg oral enteric coated tablet 81 mg, 1, tablet, By Mouth, 0 Refills, Maintenance Start Date: 08/06/06 Status: Ordered BuPROpion = 200 mg, By Mouth, Daily, 0 Refills, Maintenance Start Date: 01/08/12 Status: Ordered ciprofloxacin 500 mg oral tablet 1 tablet = 500 mg, By Mouth, Every 12 hours, for 10 days, # 20 tablet, 0 Refills, Acute 04/24/22 20:02:00 EDT, 04/14/22 20:02:00 EDT, Tablet, [id number], Partial fill upon patient request if the prescription is for a schedule II opioi... Start Date: 04/14/22 Stop Date: 04/24/22 Status: Ordered Lipitor 20 mg oral tablet 1 tablet = 20 mg, By Mouth, Daily at bedtime, 0 Refills, Maintenance Start Date: 01/08/12 Status: Ordered Losartan Tablet 50 mg, By Mouth, Daily, Maintenance, 04/04/11 12:02:37 Start Date: 04/04/11 Status: Ordered metroNIDAZOLE 500 mg oral tablet 1 tablet = 500 mg, By Mouth, 3 times a day, for 10 days, # 30 tablet, 0 Refills, Acute 04/24/22 20:03:00 EDT, 04/14/22 20:03:00 EDT, Tablet, [facility] #[id number], Partial fill upon patient request if the prescription is for a schedule II opioid... Start Date: 04/14/22 Stop Date: 04/24/22 Status: Ordered Multivitamin 1 tablet, By Mouth, Daily, 0 Refills, Maintenance Start Date: 04/04/11 Status: Ordered omeprazole 20 mg oral enteric coated capsule 20, mg, 1, capsule, By Mouth, Daily, 30 capsule, 7, 7, 08/06/06 10:32:57, GERD, Print BRITTANI Number, [facility] [address] [place] [address], [phone], Constant Indicator Start Date: 08/06/06 Stop Date: [...] Active Hypercholesterolemia Confirmed Active Hypertension Confirmed Active Results Radiology Reports * Exam Date Time Procedure Performing Provider Status 04/14/22 7:09 PM Chest Portable Walter Cedillo; Rubio (Ve rified) Notes: (Chest Portable) Reason For Exam: Shortness of Breath RESULT: Chest Portable Chest Portable Hx of Present Illness: Pt presents to triage reporting constipation x 5 days that has been partially improved with use of miralax. +assoc. upper abd pain. pain described as 'an ache that occ. is felt in his back. no n v; no fever or chills. +exertional chest palp's and sob; Reason: Shortness of Breath; Clinical Question(s): CHF COMPARISON: 07/10/2021 x-ray FINDINGS: LINES AND TUBES: None. LUNGS AND PLEURA: Low lung volumes with mild basilar atelectasis. Lungs are otherwise clear with no consolidation. No pleural effusion. No pneumothorax. HEART, MEDIASTINUM AND SUSANNAH: Heart is normal in size. Normal mediastinal and hilar contour. BONES AND SOFT TISSUES: No acute abnormality. IMPRESSION: No acute abnormality. WSN: [id number] Ordering Physician: Bren Contreras Dictated By: Deni Prieto MD Dictated Date/Time: 04/14/22 7:16 pm Reviewed By: Deni Prieto MD Signed By: Deni Prieto MD Signed Date/Time: 04/14/22 7:16 pm Transcribed By: RAMEZ Transcribed Date/Time: 04/14/22 7:15 pm Vital Signs Most recent to oldest [Reference Range]: 1 2 3 Weight 108 kg (04/14/22 6:41 PM) 108 kg (04/14/22 6:25 PM) 108 kg (04/14/22 6:24 PM) Oxygen Saturation [94-100 %] 100 % (04/14/22 8:18 PM) 100 % (04/14/22 6:41 PM) 98 % (04/14/22 4:56 PM) Pulse Rate [55-90 bpm] 93 bpm *H* (04/14/22 8:18 PM) 90 bpm (04/14/22 6:41 PM) 93 bpm *H* (04/14/22 6:25 PM) Blood Pressure [90-138/55-84 mm Hg] 158/88mm Hg *H* (04/14/22 8:18 PM) 187/92mm Hg *H* (04/14/22 6:41 PM) 187/92mm Hg *H* (04/14/22 6:25 PM) Respiratory Rate [16-30 br/min] 18 br/min (04/14/22 8:18 PM) 18 br/min (04/14/22 6:41 PM) 16 br/min (04/14/22 6:25 PM) Temperature [96.8-100.4 DegF] 98.4 DegF (04/14/22 6:41 PM) 98.2 DegF (04/14/22 6:25 PM) 98.3 DegF (04/14/22 4:56 PM) Mode of Delivery (Oxygen) Room air (04/14/22 8:18 PM) Room air (04/14/22 6:41 PM) Room air (04/14/22 6:25 PM) Blood pressure sites Arm, right (04/14/22 8:18 PM) Arm, right (04/14/22 6:41 PM) Arm, left (04/14/22 4:56 PM) Temperature Route Oral (04/14/22 6:41 PM) Oral (04/14/22 6:25 PM) Oral (04/14/22 4:56 PM) Dry Weight 108 kg (04/14/22 6:41 PM) 108 kg (04/14/22 6:25 PM) 108 kg (04/14/22 6:24 PM) Portable XR Chest Views * BHSPowerscribe , CIS S: TRANSCRIBE Ida MUSA, Deni Youssef: VERIFY Event Display: Result: Authored Date: Chest Portable Hx of Present Illness: Pt presents to triage reporting constipation x 5 days that has been partially improved with use of miralax. +assoc. upper abd pain. pain described as 'an ache that occ. is felt in his back. no n v; no fever or chills. +exertional chest palp's and sob; Reason: Shortness of Breath; Clinical Question(s): CHF COMPARISON: 07/10/2021 x-ray FINDINGS: LINES AND TUBES: None. LUNGS AND PLEURA: Low lung volumes with mild basilar atelectasis. Lungs are otherwise clear with no consolidation. No pleural effusion. No pneumothorax. HEART, MEDIASTINUM AND SUSANNAH: Heart is normal in size. Normal mediastinal and hilar contour. BONES AND SOFT TISSUES: No acute abnormality. IMPRESSION: No acute abnormality. WSN: [id number] Ordering Physician: Bren Contreras Dictated By: Deni Prieto MD Dictated Date/Time: 04/14/22 7:16 pm Reviewed By: Deni Prieto MD Signed By: Deni Prieto MD Signed Date/Time: 04/14/22 7:16 pm Transcribed By: RAMEZ Transcribed Date/Time: 04/14/22 7:15 pm Patient Care team information Personnel Name: Jose Geiger III, MD Address: Address: [address] [place] [id number]
[2023-08-20 04:37] LABS: Troponin-I High Sensitivity < 2.7 ng/L (<3.5-35.0)
[2023-08-20 04:45] VITALS: PULSE 68
--- NOTE | 2023-08-20 06:45 | ED.CHESTPAIN ---
HPI - Chest Pain General Chief Complaint: Chest Pain Stated Complaint: SoB Time Seen by Provider: 08/20/23 06:40 Source: patient Mode of arrival: ambulatory Limitations: no limitations History of Present Illness HPI narrative: 62 yo male with history of asthma, GERD, IBS, and diverticulosis presents to the ED c/o RUQ pain that radiates to L back, SOB, and nausea after eating pizza last night around 6pm. He stated this has been happening for about 4-6 weeks and experiences a constant, dull, throbbing pain that gets worse after eating. He denies any bowel changes or vomiting. MD complaint: other (RUQ pain, nausea ) Pertinent past history: asthma and other (GERD, diverticulosis, IBS) Onset (ago): week(s) Timing of current episode: episodic Prior episodes: Yes Onset: after eating Pain location: epigastric Pain radiation: back Quality: dull Relieving factors: nothing Exacerbating factors: eating Associated symptoms: nausea Treatment prior to arrival: none Related Data Home Medications Medication Instructions Recorded Confirmed albuterol sulfate 90 mcg/actuation 1 puff inhalation Q3-6H PRN 07/03/22 07/04/22 aerosol inhaler Wheezing amlodipine 10 mg tablet 1 tab PO DAILY 07/03/22 07/03/22 aspirin 81 mg tablet,delayed 81 mg PO DAILY 07/03/22 07/04/22 release levothyroxine 75 mcg tablet 1 tab PO DAILY 07/03/22 07/03/22 rosuvastatin 10 mg tablet 1 tab PO BEDTIME 07/03/22 07/03/22 valsartan 50 mg PO DAILY 07/03/22 07/04/22 Allergies Allergy/AdvReac Type Severity Reaction Status Date / Time Sulfa (Sulfonamide Allergy Unknown HIVES Verified 08/20/23 03:47 Antibiotics) [SULFA (SULFONAMIDE ANTIBIOTICS)] lisinopril Allergy Wheezing Verified 08/20/23 03:47 sulfamethoxazole Allergy Weakness Verified 08/20/23 03:47 [From Bactrim] trimethoprim [From Bactrim] Allergy Weakness Verified 08/20/23 03:47 Review of Systems Constitutional: Constitutional: Reports no additional constitutional complaints, Denies chills, Denies fever(s) and Denies night sweats Eyes: Eyes: Reports no additional eye complaints, Denies blurry vision, Denies change in vision, Denies diplopia, Denies eye discharge, Denies loss of vision and Denies eye pain ENT: Denies dizziness Cardiovascular: Cardiovascular: Reports no additional cardiovascular complaints, Denies chest pain, Denies lightheadedness and Denies Loss of Consciousness Respiratory: Respiratory: Reports no additional respiratory complaints Gastrointestinal: Gastrointestinal: Reports no additional gastrointestinal complaints, Reports abdominal pain, Denies melena, Denies hematochezia, Denies change in bowel habits, Denies change in stool character, Reports nausea and Denies vomiting Genitourinary: Genitourinary: Reports no additional male genitourinary complaints, Denies hematuria, Denies oliguria, Denies difficulty urinating, Denies dysuria, Denies urinary frequency, Denies urinary hesitancy, Denies urinary incontinence and Denies urinary urgency Musculoskeletal: Musculoskeletal: Reports no additional musculoskeletal complaints, Denies numbness and Denies tingling Neurologic: Denies dizziness, Denies loss of vision, Denies numbness and Denies tingling Psychiatric: Psychiatric: Reports no additional psychiatric complaints Endocrine: Endocrine: Reports no additional endocrine complaints Hematologic/Lymphatic: Hematologic/Lymphatic: Reports no additional hematologic/lymphatic complaints Allergic/Immunologic: Allergic/Immunologic: Reports no additional allergic/immunologic complaints PMF Past Medical History Attestation statement: The following information was validated with the patient. Source: old records reviewed and nursing notes reviewed Medical History (Updated 08/20/23 @ 11:38 by LUCILA Jara) Hypertension Irritable bowel syndrome with constipation and diarrhea Hypercholesterolemia Gastric reflux (08/06/06) Fatty liver Esophageal reflux Hypothyroidism Asthma Hyperlipidemia HTN (hypertension) Diverticulitis GERD (gastroesophageal reflux disease) Diverticulosis Surgical History H/O cardiac catheterization H/O esophagogastroduodenoscopy H/O colonoscopy Social History Social History Patient Tobacco Use Status: Former Tobacco user Physical Exam Vital Signs: Vital Signs: Last Vital Signs Temp 97.8 F 08/20/23 09:11 Pulse 65 08/20/23 09:11 Resp 18 08/20/23 09:11 BP 151/75 H 08/20/23 09:11 Pulse Ox 96 08/20/23 09:11 O2 Del Method Room Air 08/20/23 09:11 BMI result Body Mass Index 43.7 Const: General: no acute distress Nutritional Appearance: obese Orientation/consciousness: patient oriented x3 Limitations: no limitations HEENT: Head: Yes normal to inspection and Yes atraumatic Ears: hearing grossly normal bilaterally and external ears normal General nose exam: Normal external nose present, no nasal discharge noted and no epistaxis Face and sinus: Yes normal facial exam, No abrasion and No laceration Mouth: Normal oral and palatal mucosa present, no drooling and no muffled voice Eyes: General: appearance normal, both eyes and all related structures Periorbital: periorbital findings normal Eyelids: Yes eyelids normal Conjunctivae: conjunctivae normal Pupils: Equal, round and reactive pupils present EOM: EOMs intact bilaterally Neck: Neck: Yes normal visual inspection, Yes full ROM and Yes no lymphadenopathy Chest: Chest palpation & inspection: normal inspection of the chest Resp: Effort & Inspection: normal respiratory effort Auscultation: clear to auscultation bilaterally Cardio: Rate: regular rate Rhythm: regular rhythm GI: Inspection: Yes normal to inspection Palpation (GI): Soft to palpation, not firm, Tenderness to palpation present (GI) in the RUQ, no guarding and not rigid Neuro: General: patient oriented x3 Cranial nerves: Yes Equal, round and reactive pupils present Cognition (Neuro): normal cognition Motor exam (neuro): 5/5 motor strength present throughout Sensory Exam: Normal double simultaneous stimulation for sensation Coordination: [id number] test normal Extrem: General: Yes normal to inspection, Yes full ROM and Yes capillary refill normal Psych: Appearance: grossly normal Mental Status: mental status grossly normal Affect: normal affect Attitude: cooperative Thought process: Normal thought process present Thought content: Normal thought content present Insight: Good insight present (Psych) Medications Administered Discontinued Medications Generic Name Dose Route Start Last Admin Trade Name Freq PRN Reason Stop Dose Admin Ketorolac Tromethamine 15 mg 08/20/23 08:48 08/20/23 09:13 Ketorolac Tromethamine 15 Mg/Ml Vial IM 08/20/23 08:49 15 mg ONCE ONE Administration Medical Decision Making Medical Decision Making [facility] Narrative: Patient is a 62 year old assigned male at with a history of IBS, HTN, and diverticulosis presenting to the emergency department today with RUQ abdominal pain. Patient's physical exam was as noted. Patient's blood work was unremarkable. Patient's EKG was unremarkable. Patient's chest x-ray and abdominal US showed no acute process. I explained my physical exam findings as well as all test results to the patient. I answered all questions asked by the patient. I stressed the importance of the patient taking his medication as prescribed. I stressed the importance of the patient following up with his primary care provider and a general surgeon to discuss his gallbladder further. I stressed the importance of the patient returning to the emergency department immediately if his symptoms were to worsen or if he were to develop any dizziness, shortness of breath, difficulty breathing, chest pain, blurry vision, loss of vision, nausea, vomiting, abdominal pain, fever, chills, back pain, or any other complaints. Patient verbalized agreement and understanding with this treatment plan and discharge. Differential Diagnosis Differential Diagnoses: The differential diagnosis associated with the presentation includes biliary colic cholelithiasis cholecystitis peptic ulcer abdominal pain Admission/Observation Consideration of admission/observation: Escalation of care including admission/observation considered Patient would have been admitted to the hospital had his work up had any findings where hospital admission was appropriate and his clinical presentation warranted hospital admission. Lab Data [facility] Lab Attestation statement: I reviewed the patient's lab results. My interpretation of these results are in the [facility] Rationale portion of this note. 08/20/23 04:03 08/20/23 04:03 Labs: Lab Results 08/20/23 Range/Units 04:03 WBC 8.1 (4.8-10.8) X10*3/uL RBC 5.29 (4.60-5.80) X10*6/uL Hgb 16.1 (14.0-18.0) g/dl Hct 46.2 (42.0-52.0) % MCV 87.3 (80.0-98.0) fL MCH 30.4 (27.0-33.0) pg MCHC 34.8 (31.0-36.0) g/dl RDW 11.8 (11.0-16.0) % Plt Count 248 (160-400) X10*3/uL MPV 9.3 L (9.4-12.4) fL Immature Gran % (Auto) 0.6 H (0.0-0.4) % Neut % (Auto) 60.6 (45-73) % Lymph % (Auto) 28.0 (20-40) % [place] % (Auto) 7.7 (2-11) % Eos % (Auto) 2.5 (0-4) % Baso % (Auto) 0.6 (0-2) % Lymph # (Auto) 2.3 (1.2-4.9) X10*3/uL [place] # (Auto) 0.6 (0.1-1.2) X10*3/uL Eos # (Auto) 0.2 (0.0-0.4) X10*3/uL Baso # (Auto) 0.1 (0.0-0.2) X10*3/uL Abs Immat Gran (auto) 0.05 H (0.00-0.03) X10*3/uL Absolute Neuts (auto) 4.9 (2.0-8.3) x10*3/uL Absolute Nucleated RBC 0.000 (0.0-0.012) X10*3/uL Nucleated RBC % (auto) 0.0 (0.0-0.2) /100WBC Sodium 140 (135-145) mmol/L Potassium 3.6 (3.3-5.1) mmol/L Chloride 107 (96-108) mmol/L Carbon Dioxide 25 (22-29) mmol/L Anion Gap 12 (12-20) BUN 18 H (9-16) mg/dL Creatinine 0.84 (0.5-1.4) mg/dL Estim Creat Clear Calc 108.0 Estimated GFR > 60 Random Glucose 170 H (60-115) mg/dL Calcium 9.9 (8.4-10.2) mg/dL Total Bilirubin 0.5 (0.0-1.0) mg/dL AST 35 (5-37) U/L ALT 91 H (0-40) U/L Alkaline Phosphatase 62 (39-117) U/L Troponin I High Sens < 2.7 (<3.5-35.0) ng/L Total Protein 6.9 (6.5-8.0) g/dL Albumin 4.3 (3.5-5.0) g/dL Lipase 35 (8-78) U/L Independent Interpretation I performed an independent interpretation of an: EKG, Plain X-Ray and Ultrasound Interpretation: My interpretation is in agreement with the radiologist's impression of these imaging studies. EXAMINATION: US ABDOMEN LIMITED CLINICAL INFORMATION: Right upper quadrant pain. COMPARISON: CT scan of September 09, 2017 TECHNIQUE: Real-time imaging of the right upper quadrant abdominal viscera. FINDINGS: PANCREAS: Unremarkable. No abnormal mass or peripancreatic inflammatory change. LIVER: The liver is normal in size. The liver contour is normal. There is homogeneously increased echogenicity consistent with fatty infiltration. No focal hepatic lesion. There is no intrahepatic biliary duct dilatation seen. GALLBLADDER: Normal. The gallbladder is physiologically distended without evidence of stones, sludge, polyps, wall thickening or pericholecystic fluid. COMMON BILE DUCT: Normal in caliber measuring 0.7 cm in diameter. RIGHT KIDNEY: Normal. No hydronephrosis. No renal calculi or focal parenchymal lesions. The kidney measures 10.7 cm in maximum dimension. FREE FLUID: None. US/US abdomen limited IMPRESSION: Diffuse fatty infiltration of the liver. No evidence of acute pancreatitis, acute cholecystitis, or biliary ductal dilatation. Dictated By: Grabiel Desai MD Signed By: Electronically signed by Grabiel Desai MD 08/20/23 0850 EXAMINATION: XR CHEST CLINICAL INFORMATION: Chest pain. COMPARISON: 09/19/2016. TECHNIQUE: 2 views of the chest were obtained. FINDINGS: The cardiomediastinal silhouette is stable. There is right middle lobe scarring. Lungs are otherwise clear. The bony structures and soft tissues are unremarkable. XR/XR chest 2V IMPRESSION: Right middle lobe scarring. No acute cardiopulmonary process. Dictated By: Trevor Johnson Signed By: Electronically signed by Trevor Johnson 08/20/23 0426 Vent. Rate: 072 BPM Atrial Rate: 072 BPM P-R Int: 192 ms QRS Dur: 102 ms QT Int: 396 ms P-R-T Axes: 053 000 055 degrees QTc Int: 433 ms Normal sinus rhythm with sinus arrhythmia Inferior infarct (cited on or before 09-SEP-2017) Abnormal ECG When compared with ECG of 21-FEB-2020 21:10, No significant change was found DD/ [id number] Radiology Impression Discussion of test interpretation with radiology: I have reviewed the radiologist's reading. Chronic Conditions Patient?s care impacted by: Hypertension Discharge Plan Discharge Clinical Impression: Biliary colic Patient Disposition: Home, Self-Care Instructions: Biliary Colic (ED) Additional Instructions: Follow up with your primary care provider and a general surgeon (to discuss evaluation of your gallbladder). Return to the emergency department immediately if your symptoms worsen or if you develop any dizziness, shortness of breath, difficulty breathing, chest pain, blurry vision, loss of vision, nausea, vomiting, abdominal pain, fever, chills, back pain, or any other complaints. Prescriptions: No Action aspirin [Aspir-81] 81 mg Tablet,Delayed Release (Dr/Ec) 81 mg PO DAILY levothyroxine 75 mcg tablet 1 tab PO DAILY amlodipine 10 mg tablet 1 tab PO DAILY albuterol sulfate 90 mcg/actuation HFA aerosol inhaler 1 puff inhalation Q3-6H PRN (Reason: Wheezing) rosuvastatin 10 mg tablet 1 tab PO BEDTIME valsartan 50 mg PO DAILY Referrals: [facility] [Provider Group] (Call to establish and follow up with a general surgeon (to discuss further evaluation of your gallbladder).) Jose Geiger III, MD [Primary Care Provider] - Stand Alone Forms: Work/School Release Interventions: ED Discharge Assessment Last Done: 08/20/23 09:52 Discharge Date/Time: 08/20/23 09:52 Print Language: Estonian
[2023-08-20 09:11] VITALS: BP 151/75; PULSE 65; RESP 18; TEMP 36.6; O2SAT 96
[2023-08-20] MEDS: Ketorolac Tromethamine 15 MG/ML VIAL IM (09:13)
[2023-08-20 09:29] LABS: Lipase 35 U/L (8-78)
== END 2023-08-20 09:52 | disposition home or self-care (01) ==
PROVIDERS: Physician Assistant Medical; Emergency Provider Emergency Medicine; PCP Internal Medicine
DX: K80.50 Calculus of bile duct without cholangitis or cholecystitis without obstruction (principal); R10.11 Right upper quadrant pain; R07.89 Other chest pain; I49.9 Cardiac arrhythmia, unspecified; R10.13 Epigastric pain; Z79.899 Other long term (current) drug therapy
CPT/HCPCS: 36415; 71046; 76705; 80053; 83690; 84484; 85025; 93005; 96372; 99284; 99285; J1885

== ENCOUNTER → 2023-08-20 03:50 | Outpatient (BNV) | payer OTHER, SELFPAY | PROVIDERS: Emergency Provider Emergency Medicine; PCP Internal Medicine; Visit Provider Internal Medicine | DX: R07.9 Chest pain, unspecified (principal) | CPT/HCPCS: 93010 ==

== ENCOUNTER 2023-08-26 08:22 | Outpatient (AMB) | payer OTHER, SELFPAY ==
[2023-08-26 08:33] VITALS: BP 169/79; PULSE 73; BMI 43.1
--- NOTE | 2023-08-26 08:33 | MHC.OFFVIS ---
Intake Vital Signs 08/26/23 08:33 Height 5 ft 4 in Weight 251 lb BMI 43.1 BP 169/79 H Blood Pressure Location Rt brachial Position Sitting Pulse 73 Intake Visit Reasons: Biliary Colic Intake Note: Patient referred after ER visit on 08-20-23 for abd pain. Reports on and off abd pain for 4-6 wks. Patient c/o: abd pain that radiated to lower back. Pain gets worse after eating. US abd on 08-20-23. 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: No Accompanied by: Self / Same As Patient Allergies Sulfa (Sulfonamide Antibiotics) [SULFA (SULFONAMIDE ANTIBIOTICS)] Allergy (Unknown, Verified 08/26/23 08:34) HIVES lisinopril Allergy (Verified 08/26/23 08:34) Wheezing sulfamethoxazole [From Bactrim] Allergy (Verified 08/26/23 08:34) Weakness trimethoprim [From Bactrim] Allergy (Verified 08/26/23 08:34) Weakness Medication List - Last Reconciled 08/26/23 by Simone Burden MD albuterol sulfate 90 mcg/actuation 1 puff inhalation Q3-6H PRN amlodipine 1 tab PO DAILY aspirin 81 mg PO DAILY indapamide 1.25 mg PO QAM levothyroxine 1 tab PO DAILY pantoprazole 40 mg PO DAILY rosuvastatin 1 tab PO BEDTIME [valsartan 50 mg PO DAILY] HPI HPI Comments History of Present Illness Details Patient is a pleasant sterile male who had a recent ER visit for right upper quadrant pain radiating around to his back. He has had a couple of episodes of this in the past and has had 2 ultrasounds which were negative for any cholelithiasis or biliary pathology. Because of persistence of symptoms, he presents here for further evaluation. Patient has never been jaundiced before. He is history of irritable bowel syndrome but for the most part has regular bowel habits. Has history of hiatal hernia/esophagitis. Patient has been seen by Dr. Laws and has had upper endoscopy. Chart was reviewed and patient evaluated [facility] Medical History (Updated 08/21/23 @ 00:01 by Background Dagirishon) Hypertension Irritable bowel syndrome with constipation and diarrhea Hypercholesterolemia Gastric reflux (08/06/06) Fatty liver Esophageal reflux Hypothyroidism Asthma Hyperlipidemia HTN (hypertension) Diverticulitis GERD (gastroesophageal reflux disease) Diverticulosis Surgical History (Updated 08/26/23 @ 08:46 by Simone Burden MD) H/O cardiac catheterization H/O esophagogastroduodenoscopy H/O colonoscopy Social History (Updated 08/26/23 @ 08:38 by SHUKRI Lizarraga) Alcohol intake: current Alcohol intake frequency: holidays/special occasions only Alcohol type: beer and hard liquor Patient Tobacco Use Status: Former Tobacco user Physical Exam Vital Signs: Last Vital Signs Pulse 73 08/26/23 08:33 BP 169/79 H 08/26/23 08:33 BMI result Body Mass Index 43.1 Eyes Other: Anicteric GI Other: Very corpulent abdomen. Soft. Mild right upper quadrant tenderness. No evidence of any guarding, rebound, or rigidity. Assessment & Plan Assessment & Plan (1) Biliary dyskinesia: Code(s): K82.8 - Other specified diseases of gallbladder Plan: Current plan is to arrange for a HIDA scan to evaluate for possible biliary dyskinesia. Further interventions and studies will be directed by the results of the above-mentioned study. All questions answered. Patient will see me after this radiologic study. Orders: Orders NM hepatobiliary w pharm Today K82.8 - Other specified diseases of gallbladder Coding Level of Care Code New Pt Level 4 (45092) Diagnoses Biliary dyskinesia K82.8
== END 2023-08-26 08:44 | disposition home or self-care (01) ==
PROVIDERS: PCP Internal Medicine; Visit Provider Surgery
DX: K82.8 Other specified diseases of gallbladder (principal)
CPT/HCPCS: 99204

== ENCOUNTER → 2023-08-26 08:22 | Outpatient (BNVA) | payer OTHER, SELFPAY | PROVIDERS: PCP Internal Medicine; Visit Provider Surgery ==

== ENCOUNTER → 2023-09-11 07:38 | Outpatient (REF) | payer OTHER, SELFPAY ==
--- NOTE | ~2023-09-11 | NM_ITS ---
EXAMINATION: BILIARY TRACT IMAGING STUDY WITH CCK CLINICAL INFORMATION: Right upper quadrant pain following meals. Negative ultrasound. COMPARISON: Right upper quadrant abdominal ultrasound done on 08/20/2023.. TECHNIQUE: Serial gamma scintillation camera images were obtained over the abdomen for a total observation period of 60 minutes following the intravenous administration of 5.0 mCi Tc-99m mebrofenin. FINDINGS: There is good concentration of activity in the liver by 5 minutes post injection. Biliary activity is visualized by 10 minutes. The gallbladder is well visualized by 20 minutes. Small bowel is well visualized by 25 minutes. At 60 minutes post radiopharmaceutical injection, a 30-minute infusion of 2.3 micrograms Sincalide was then begun and an additional 40 minutes of images were obtained. There is rapid emptying of the gallbladder. By the end of the study there is good clearance of activity from the liver and visualization of diffuse small bowel activity. The calculated gallbladder ejection fraction is 91% (Normal range of gallbladder ejection fraction is between 35-80%; GBEF <35% is considered biliary hypokinesia and >80% is considered biliary hyperkinesia; Ref. #1-Clinical Journal of Gastroenterology (2020) 14:1308?1317; Ref.#2-[email or web address]). NM/NM hepatobiliary w pharm IMPRESSION: Visualization of the gallbladder is evidence of a patent cystic duct and strong evidence against the diagnosis of acute cholecystitis. The common bile duct is patent. Gallbladder emptying and ejection fraction are abnormal. The gallbladder appears hyperkinetic. Liver function appears normal.
== END ==
LOC: HO.NUCMED 07:38
PROVIDERS: PCP Internal Medicine; Visit Provider Surgery
DX: K82.8 Other specified diseases of gallbladder (principal)
CPT/HCPCS: 78227; A9537; J2805

== ENCOUNTER 2023-09-16 10:53 | Outpatient (AMB) | payer OTHER, SELFPAY ==
[2023-09-16 10:58] VITALS: BP 163/76; PULSE 76; BMI 43.4
--- NOTE | 2023-09-16 10:58 | A.OFFVIS_ITS ---
Intake Vital Signs 09/16/23 10:58 Height 5 ft 4 in Weight 253 lb BMI 43.4 BP 163/76 H Blood Pressure Location Rt brachial Position Sitting Pulse 76 Intake Visit Reasons: Discuss HIDA scan results Intake Note: Patient here to discuss HIDA scan on 09-11-23 results. Patient c/o: abd pain. 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 He is still having right upper quadrant epigastric symptoms. HIDA scan demonstrates findings consistent with biliary dyskinesia. This was reviewed with the patient. [facility] Medical History Hypertension Irritable bowel syndrome with constipation and diarrhea Hypercholesterolemia Gastric reflux (08/06/06) Fatty liver Esophageal reflux Hypothyroidism Asthma Hyperlipidemia HTN (hypertension) Diverticulitis GERD (gastroesophageal reflux disease) Diverticulosis Surgical History H/O cardiac catheterization H/O esophagogastroduodenoscopy H/O colonoscopy Social History Alcohol intake: current Alcohol intake frequency: holidays/special occasions only Alcohol type: beer and hard liquor Patient Tobacco Use Status: Former Tobacco user Physical Exam Vital Signs: Last Vital Signs Pulse 76 09/16/23 10:58 BP 163/76 H 09/16/23 10:58 BMI result Body Mass Index 43.4 Eyes Other: Anicteric Chest Other: Chest breath sounds bilaterally, HS 1 in 2 GI Other: Very corpulent abdomen, soft, benign Assessment & Plan Assessment & Plan (1) Biliary dyskinesia: Code(s): K82.8 - Other specified diseases of gallbladder Plan Risks, benefits, alternatives laparoscopic possible open cholecystectomy reviewed the patient included but not limited to bleeding, infection, recurrence of symptoms, numbness, pain, scarring, bowel or bile duct injury or leak and the patient wishes to proceed. All questions answered. Arrangements will be made for this. Coding Level of Care Code Est Pt Level 5 (20599) Diagnoses Biliary dyskinesia K82.8
== END 2023-09-16 11:04 | disposition home or self-care (01) ==
PROVIDERS: PCP Internal Medicine; Visit Provider Surgery
DX: K82.8 Other specified diseases of gallbladder (principal)
CPT/HCPCS: 99214

== ENCOUNTER → 2023-09-16 10:53 | Outpatient (BNVA) | payer OTHER, SELFPAY | PROVIDERS: PCP Internal Medicine; Visit Provider Surgery ==

== ENCOUNTER 2023-12-04 08:56 | Day surgery (SDC) | payer OTHER, SELFPAY ==
[2023-11-04 11:26] VITALS: BMI 43.4
--- NOTE | 2023-11-05 10:12 | MHC.SHP ---
Pre-Procedural Eval Section A - 24 Hr Update-Section A only Date of Service: 11/05/23 The patient is an INPATIENT: No Changes since office visit: No Cold of Flu in the past 2 weeks, No New Medical Problems, No Changes in Medication and No Patient answered all questions Section B - Complete if H&P > 30 days Chief Complaint: Other specified diseases of gallbladder Allergies: Allergies Allergy/AdvReac Type Severity Reaction Status Date / Time Sulfa (Sulfonamide Allergy Unknown HIVES Verified 09/16/23 10:59 Antibiotics) [SULFA (SULFONAMIDE ANTIBIOTICS)] lisinopril Allergy Wheezing Verified 09/16/23 10:59 sulfamethoxazole Allergy Weakness Verified 09/16/23 10:59 [From Bactrim] trimethoprim [From Bactrim] Allergy Weakness Verified 09/16/23 10:59 Plan I have reviewed the history and physical and performed a pertinent physical examination on my patient. No changes have occurred unless specified. Time Spent With Patient Time: Total time managing care of this patient today ____ minutes.
--- NOTE | 2023-12-02 13:02 | MHC.SHP ---
Pre-Procedural Eval Section A - 24 Hr Update-Section A only Date of Service: 12/04/23 The patient is an INPATIENT: No Section B - Complete if H&P > 30 days Chief Complaint: Other specified diseases of gallbladder Allergies: Allergies Allergy/AdvReac Type Severity Reaction Status Date / Time Sulfa (Sulfonamide Allergy Unknown HIVES Verified 09/16/23 10:59 Antibiotics) [SULFA (SULFONAMIDE ANTIBIOTICS)] lisinopril Allergy Wheezing Verified 09/16/23 10:59 sulfamethoxazole Allergy Weakness Verified 09/16/23 10:59 [From Bactrim] trimethoprim [From Bactrim] Allergy Weakness Verified 09/16/23 10:59 Plan I have reviewed the history and physical and performed a pertinent physical examination on my patient. No changes have occurred unless specified. Time Spent With Patient Time: Total time managing care of this patient today ____ minutes.
[2023-12-04] VITALS (19 sets, daily range): BP systolic 118–178; BP diastolic 58–87; PULSE 78–96; RESP 12–19; TEMP 36.2–36.6; O2SAT 89–98; BMI 42.9
--- OUTSIDE RECORDS SUMMARY | 2023-12-04 08:58 | XMS_ITS | Patient Health Record ---
Author Organization [facility] Address [address] [place] [address] Care Team Providers Care Ward Nurse Name Role Phone Jose Geiger MD Primary Care Provider Reyes Cm Jr Unavailable [phone] ALLERGIES Allergen (clinical drug ingredient) Drug/Non Drug [...] Potassium 100 MG Oral for 90 Active [employer] 3 Active Probiotic Active Fiber Active Albuterol [...] Problem Colon cancer screening (Z12.11) Active confirmed 956072938 Problem Esophageal reflux (K21.9) Active confirmed Esophageal reflux (944452216) Problem Generalized abdominal pain (R10.84) Active confirmed 256775033 Problem Gastroesophageal reflux disease without esophagitis (K21.9) Active confirmed 293497626 Problem Fatty liver (K76.0) Active confirmed [address] scan, colon (R93.3) Active confirmed 019732368 Problem Irritable bowel syndrome with constipation and diarrhea (K58.2) Active confirmed 41197562 VITAL SIGNS Temperature 97.3 degrees Fahrenheit 03/05/2023 Blood pressure diastolic 00 mm Hg 03/05/2023 Height 64 in 03/05/2023 Blood pressure systolic 000 mm Hg 03/05/2023 Weight 245 lbs 03/05/2023 BMI 42.05 kg/m2 03/05/2023 Encounters Encounter Location Date Provider Diagnosis [facility] [address] [place] [address] 03/05/2023 Reyes Laws Jr Gastroesophageal reflux disease without esophagitis K21.9 ; Irritable bowel syndrome with constipation and diarrhea K58.2 and Fatty liver K76.0 [facility] [address] [place] [address] 07/07/2023 Reyes Laws Jr ASSESSMENTS Encounter Date [...] Provider Name:Reyes garrido Jr, 03/07/2024 09:00:00 AM, [address] [facility], [address], [place], [address], Insurance Providers Payer Name Payer Address Payer Phone Subscriber Number Group Number Insured Name Patient Relationship to Insured Coverage Start Date Coverage End Date [facility] [address] [facility] [phone] [id number] MERVAT CANALES Self - patient is the insured MEDICAL (GENERAL) HISTORY Medical History History ICD Code Colonoscopy 07/04, lymphoid polyp, ten-y ear followup Gastroesophageal reflux disease, EGD , no HP/BE Diverticulitis Hypertension Hyperlipidemia Asthma Cardiac catheterization at [facility], no significant disease per patient hypothyroidism Surgical History Surgery Date(Month/Year) Hospitalization History Reason Date(Month/Year) twice in ER, for stomach pain.
[2023-12-04] MEDS: Lactated Ringers 1,000 ML 100 ML IVCONT (09:39)
--- NOTE | 2023-12-04 11:25 | HO.ANESPROP2 ---
Documented by User: Karolina Amaro NP 12/02/23 15:14 HPI - Anesthesia Eval Consult details Narrative: 63yo M for Cholecystectomy Laparoscopic, possible open, 12/04/23 T/C to patient 12/02/23: Cardiac cath 2017 - Per pt, 1 x episode of CP at work. Sent for cath at [facility], but no intervention required. Does not follow with cardiology, PCP only. No diagnosed cardiac conditions. No CP/SOB with stairs PMFSH Active Problems Active Problems: All Active Problems Biliary dyskinesia (Acute) Hypertension (Acute) Irritable bowel syndrome with constipation and diarrhea (Acute) Hypercholesterolemia (Acute) Gastric reflux (Acute 08/06/06) Fatty liver (Acute) Esophageal reflux (Acute) Past Medical History Medical History Hypertension Irritable bowel syndrome with constipation and diarrhea Hypercholesterolemia Gastric reflux (08/06/06) Fatty liver Esophageal reflux Hypothyroidism Asthma Hyperlipidemia HTN (hypertension) Diverticulitis GERD (gastroesophageal reflux disease) Diverticulosis Family History Family history of problems with anesthesia: No Surgical History Surgical History (Updated 12/02/23 @ 15:14 by Karolina Amaro NP) H/O cardiac catheterization (~2017) H/O esophagogastroduodenoscopy H/O colonoscopy History of Problems with Anesthesia: No Social History Social History Alcohol intake: current Alcohol intake frequency: holidays/special occasions only Alcohol type: beer and hard liquor Patient Tobacco Use Status: Former Tobacco user Use of substances other than those prescribed or required for medical reasons: No Are you DNR?: No Advance Directives: No Advance Directives Information Provided: Yes Meds Allergies Allergy/AdvReac Type Severity Reaction Status Date / Time Sulfa (Sulfonamide Allergy Unknown HIVES Verified 09/16/23 10:59 Antibiotics) [SULFA (SULFONAMIDE ANTIBIOTICS)] lisinopril Allergy Wheezing Verified 09/16/23 10:59 sulfamethoxazole Allergy Weakness Verified 09/16/23 10:59 [From Bactrim] trimethoprim [From Bactrim] Allergy Weakness Verified 09/16/23 10:59 Home Medications ?Medication ?Instructions ?Recorded ?Confirmed ?Last Taken ?Type albuterol sulfate 90 mcg/actuation 1 puff inhalation Q3-6H PRN 07/03/22 12/04/23 06/27/22 History aerosol inhaler Wheezing amlodipine 10 mg tablet 1 tab PO DAILY 07/03/22 12/04/23 07/03/22 History aspirin 81 mg tablet,delayed 81 mg PO DAILY 07/03/22 12/04/23 06/27/22 History release levothyroxine 75 mcg tablet 1 tab PO DAILY 07/03/22 12/04/23 07/03/22 History rosuvastatin 10 mg tablet 1 tab PO BEDTIME 07/03/22 12/04/23 07/03/22 History valsartan 50 mg PO DAILY 07/03/22 12/04/23 07/03/22 History indapamide 1.25 mg tablet 1.25 mg PO QAM 08/26/23 12/04/23 Unknown History pantoprazole 40 mg tablet,delayed 40 mg PO DAILY 08/26/23 12/04/23 Unknown History release Exam Height,Weight and Vital Signs: Height 5 ft 4 in Weight 114.759 kg Pertinent Lab Results Pertinent Lab Results: Laboratory Tests 08/20/23 04:03 WBC 8.1 Hgb 16.1 Hct 46.2 Plt Count 248 Sodium 140 Potassium 3.6 Chloride 107 Carbon Dioxide 25 BUN 18 H Creatinine 0.84 Narrative Narrative: EKG 08/2023 Vent. 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 Sent for cath at [facility], but no intervention required. Does not follow with cardiology, PCP only. No diagnosed cardiac conditions. No CP/SOB with stairs PMFSH Past Medical History Medical History Hypertension Irritable bowel syndrome with constipation and diarrhea Hypercholesterolemia Gastric reflux (08/06/06) Fatty liver Esophageal reflux Hypothyroidism Asthma Hyperlipidemia HTN (hypertension) Diverticulitis GERD (gastroesophageal reflux disease) Diverticulosis Family History Family history of problems with anesthesia: No Surgical History Surgical History (Updated 12/02/23 @ 15:14 by Karolina Amaro NP) H/O cardiac catheterization (~2016) H/O esophagogastroduodenoscopy H/O colonoscopy History of Problems with Anesthesia: No Social History Social History Alcohol intake: current Alcohol intake frequency: holidays/special occasions only Alcohol type: beer and hard liquor Patient Tobacco Use Status: Former Tobacco user Use of substances other than those prescribed or required for medical reasons: No Are you DNR?: No Advance Directives: No Advance Directives Information Provided: Yes Meds Allergies Allergy/AdvReac Type Severity Reaction Status Date / Time Sulfa (Sulfonamide Allergy Unknown HIVES Verified 09/16/23 10:59 Antibiotics) [SULFA (SULFONAMIDE ANTIBIOTICS)] lisinopril Allergy Wheezing Verified 09/16/23 10:59 sulfamethoxazole Allergy Weakness Verified 09/16/23 10:59 [From Bactrim] trimethoprim [From Bactrim] Allergy Weakness Verified 09/16/23 10:59 Home Medications ?Medication ?Instructions ?Recorded ?Confirmed ?Last Taken ?Type albuterol sulfate 90 mcg/actuation 1 puff inhalation Q3-6H PRN 07/03/22 12/04/23 06/27/22 History aerosol inhaler Wheezing amlodipine 10 mg tablet 1 tab PO DAILY 07/03/22 12/04/23 07/03/22 History aspirin 81 mg tablet,delayed 81 mg PO DAILY 07/03/22 12/04/23 06/27/22 History release levothyroxine 75 mcg tablet 1 tab PO DAILY 07/03/22 12/04/23 07/03/22 History rosuvastatin 10 mg tablet 1 tab PO BEDTIME 07/03/22 12/04/23 07/03/22 History valsartan 50 mg PO DAILY 07/03/22 12/04/23 07/03/22 History indapamide 1.25 mg tablet 1.25 mg PO QAM 08/26/23 12/04/23 Unknown History pantoprazole 40 mg tablet,delayed 40 mg PO DAILY 08/26/23 12/04/23 Unknown History release Exam Exam Date and Time: December 04, 2023 1125 Height,Weight and Vital Signs: Height 5 ft 4 in Weight 114.759 kg Height 5 ft 4 in Weight 113.398 kg Vital Signs Temperature 97.8 F 12/04/23 09:27 Pulse Rate 78 12/04/23 09:27 Respiratory Rate 18 12/04/23 09:27 Blood Pressure 157/82 H 12/04/23 09:27 Pulse Oximetry 98 12/04/23 09:27 Oxygen Delivery Method Room Air 12/04/23 09:27 Temperature 97.8 F 12/04/23 09:27 Pulse Rate 78 12/04/23 09:27 Respiratory Rate 18 12/04/23 09:27 Blood Pressure 157/82 H 12/04/23 09:27 Pulse Oximetry 98 12/04/23 09:27 Oxygen Delivery Method Room Air 12/04/23 09:27 Airway Mallampati Class: I TM Dist: >3cm Neck ROM: Full Loose/Missing/Broken Teeth: Yes (poor dentition but nothing loose or broken per patient) Heart: S1S2 Lungs: CTAB Assessment and Plan Assessment Anesthesia Assessment: Anesthesia Plan Discussed and Chart Reviewed Final Anesthetic Review Family History of Problems with Anesthesia: No History of Problems with Anesthesia: No NPO: Yes ASA Class: III Final Preanesthetic Review: No Changes in Pt Med Stat, Meds/Allgs Chart Reviewed, Consent Obtained/Reviewed and Anes Risks/Benef Reviewed Patient Risk: Intermediate Procedure Risk: Low Anesthetic Plan Anesthetic Plan: GA and Agree w/ Assess. and Plan Disposition: Standard PACU
--- NOTE | 2023-12-04 12:38 | P.OP_ITS ---
Operative Note Operative Note Date of Service: 12/04/23 Narrative: Preoperative diagnosis: [] Symptomatic gallbladder Postop diagnosis: [] The same Procedure [] laparoscopic cholecystectomy Surgeon: [] Bertram Tobacco Drier Operator: [] Ra Type of Anesthesia: [] General Indication for surgery: [] Very corpulent abdomen. Gallbladder with omental adhesions to it. Intrahepatic gallbladder. Findings: [] Patient brought to the operating room, placed on operative table in supine position, after an adequate level of general anesthesia was induced, the patient's abdomen was prepped and draped in usual sterile fashion. Using a supraumbilical curvilinear incision, Javier technique was used to insufflate abdominal cavity to 15 mm of CO2. Upper midline and right subcostal ports were placed under direct laparoscopic view, the patient placed in reverse Trendelenburg position, and tilted to the left. Gallbladder was grasped using laparoscopic graspers, and retracted superiorly and laterally. Omental adhesions swept off the gallbladder with the hilum was approached. Cystic ar lio and cystic duct were each identified, circumferentially skeletonized, traced directly into the gallbladder, and critical view obtained. Each was clipped proximally x2, distally x1, and transected gallbladder was then cauterized from the gallbladder fossa using Bovie. Specimen was placed in an Endo-Catch bag, a retrieved through the umbilical port. Abdominal cavity was copiously irrigated, and secured hemostasis. All ports removed under direct laparoscopic view. Wounds were closed in the following manner; umbilical wound has fascia reapproximated using interrupted 0 Vicryl sutures. Skin wounds were closed using subcuticular 4-0 Vicryl sutures followed by Steri-Strips and sterile dressings. Wounds were infiltrated 0.5% Marcaine at completion. Sponge, needle, and instrument counts were reported correct. Patient tolerated the procedure well and emerged from anesthesia stable condition. EBL minimal
[2023-12-04] MEDS: fentaNYL citrate/PF 100 MCG/2 ML VIAL 50 MCG IVPUSH (13:25)
[2023-12-04] MEDS: Haloperidol Lactate 5 MG/ML VIAL 1 MG IVPUSH (16:11)
== END 2023-12-04 16:54 | disposition home or self-care (01) ==
PROVIDERS: PCP Internal Medicine; Visit Provider Surgery
PROC: 0FT44ZZ Resection of Gallbladder, Percutaneous Endoscopic Approach (ICD-10-PCS; CPT 47562; principal; 2023-12-04 11:20)
DX: K82.8 Other specified diseases of gallbladder (principal); I10 Essential (primary) hypertension; E78.5 Hyperlipidemia, unspecified; K76.0 Fatty (change of) liver, not elsewhere classified; K21.9 Gastro-esophageal reflux disease without esophagitis; J45.909 Unspecified asthma, uncomplicated; Z87.891 Personal history of nicotine dependence; Z79.02 Long term (current) use of antithrombotics/antiplatelets; Z79.899 Other long term (current) drug therapy; Z79.82 Long term (current) use of aspirin
CPT/HCPCS: 47562; 88304; J0131; J0690; J1100; J1170; J1630; J1805; J1885; J2250; J2405; J2704; J2795; J3010

== ENCOUNTER → 2023-12-04 08:56 | Outpatient (BNV) | payer OTHER, SELFPAY | PROVIDERS: PCP Internal Medicine; Visit Provider Surgery | DX: K82.8 Other specified diseases of gallbladder (principal) | CPT/HCPCS: 47562 ==

== ENCOUNTER 2023-12-11 15:36 | Emergency (ER) | payer OTHER, SELFPAY ==
--- NOTE | ~2023-12-11 | CT_ITS ---
EXAMINATION: CT ABDOMEN AND PELVIS WITH CONTRAST CLINICAL INFORMATION: Abdominal pain, status post recent cholecystectomy COMPARISON: 09/09/2017 TECHNIQUE: Multidetector volumetric images were obtained from the superior aspect of the liver through the pubic symphysis following administration 85 mL of Omnipaque 350 intravenous contrast. Sagittal and coronal reformatted images were obtained on the technologist's workstation. Oral contrast: No This CT examination was performed using dose optimization techniques as appropriate, variously including the following: *Automated exposure control *Adjustment of mA and/or kV according to patient size (this includes techniques or standardized protocols for targeted exams where dose is matched to indication/reason for exam; i.e. extremities or head) *Use of iterative reconstruction technique DLP: 989 mGy-cm FINDINGS: LUNG BASES: Mild bibasilar atelectasis. LIVER, GALLBLADDER, AND BILIARY TREE: The liver demonstrates hypoattenuation suggesting steatosis. No focal hepatic lesion or biliary ductal dilatation is present. Status post cholecystectomy. Mild stranding in the gallbladder fossa without focal collection. PANCREAS: Unremarkable. SPLEEN: Unremarkable. ADRENAL GLANDS: Unremarkable. KIDNEYS AND URETERS: Bilateral nephrograms are symmetric. No hydronephrosis or obstructing calculus identified. Mid right renal cyst noted; no follow-up recommended. BLADDER: Unremarkable. GASTROINTESTINAL TRACT: No evidence of bowel obstruction or significant wall thickening. Colonic diverticulosis is noted. The appendix is unremarkable. No free fluid or free air is seen. ABDOMINAL WALL: Bilateral fat-containing inguinal hernias. There is subcutaneous stranding around the umbilicus. LYMPH NODES: Normal. VASCULAR: Scattered atherosclerotic calcification. PELVIC VISCERA: Unremarkable. OSSEOUS STRUCTURES: Facet arthropathy of the lumbar spine. CT/CT abdomen pelvis w IV con IMPRESSION: 1. Status post recent cholecystectomy. Mild stranding in the gallbladder fossa which may reflect postoperative edema, without focal collection. 2. Subcutaneous stranding around the umbilicus, which may also be postoperative inflammation versus cellulitis in the proper clinical setting. 3. Hepatic steatosis. Findings discussed with Dr. Sands on 12/12/2023 12:15 AM.
[2023-12-11 15:51] VITALS: BP 136/79; PULSE 84; RESP 20; TEMP 36.7; O2SAT 96; BMI 42.2
--- NOTE | 2023-12-11 15:52 | ED.GENADULT ---
HPI - General Adult General Chief complaint: GI Bleed Stated complaint: surg last week, was told to come in Time Seen by Provider: 12/11/23 21:02 Related Data Home Medications ?Medication ?Instructions ?Recorded ?Confirmed albuterol sulfate 90 mcg/actuation 1 puff inhalation Q3-6H PRN 07/03/22 12/04/23 aerosol inhaler Wheezing amlodipine 10 mg tablet 1 tab PO DAILY 07/03/22 12/04/23 aspirin 81 mg tablet,delayed 81 mg PO DAILY 07/03/22 12/04/23 release levothyroxine 75 mcg tablet 1 tab PO DAILY 07/03/22 12/04/23 rosuvastatin 10 mg tablet 1 tab PO BEDTIME 07/03/22 12/04/23 valsartan 50 mg PO DAILY 07/03/22 12/04/23 indapamide 1.25 mg tablet 1.25 mg PO QAM 08/26/23 12/04/23 pantoprazole 40 mg tablet,delayed 40 mg PO DAILY 08/26/23 12/04/23 release Previous Rx's ?Medication ?Instructions ?Recorded hydrocodone 5 mg-acetaminophen 325 1 tab PO Q4-6H PRN pain #30 tabs 12/04/23 mg tablet Allergies Allergy/AdvReac Type Severity Reaction Status Date / Time Sulfa (Sulfonamide Allergy Unknown HIVES Verified 12/11/23 15:54 Antibiotics) [SULFA (SULFONAMIDE ANTIBIOTICS)] lisinopril Allergy Wheezing Verified 12/11/23 15:54 sulfamethoxazole Allergy Weakness Verified 12/11/23 15:54 [From Bactrim] trimethoprim [From Bactrim] Allergy Weakness Verified 12/11/23 15:54 PMFSH Past Medical History Medical History Hypertension Irritable bowel syndrome with constipation and diarrhea Hypercholesterolemia Gastric reflux (08/06/06) Fatty liver Esophageal reflux Hypothyroidism Asthma Hyperlipidemia HTN (hypertension) Diverticulitis GERD (gastroesophageal reflux disease) Diverticulosis Surgical History Hx laparoscopic cholecystectomy (12/04/23) H/O cardiac catheterization (~2016) H/O esophagogastroduodenoscopy H/O colonoscopy Social History Social History Alcohol intake: current Alcohol intake frequency: a few times a week Alcohol type: beer Patient Tobacco Use Status: Former Tobacco user Smoked in Last 30 Days: No Advance Directives: No Advance Directives Information Provided: No Do you have a plan to hurt others: No Plan Physical Exam ED Vital Signs: Vital Signs - 24 hr 12/11/23 15:51 12/11/23 19:24 12/11/23 19:27 Temperature 98.0 F 98.1 F Pulse Rate 84 78 73 Respiratory Rate 20 18 18 Blood Pressure 136/79 138/68 138/68 Pulse Oximetry 96 96 97 Oxygen Delivery Method Room Air Room Air 12/11/23 21:34 12/12/23 01:08 Temperature 98.3 F Pulse Rate 75 72 Respiratory Rate 16 20 Blood Pressure 144/81 H 151/74 H Pulse Oximetry 97 96 Oxygen Delivery Method Room Air Room Air BMI result Body Mass Index 42.2 Course Course Course Narrative: This is a Rapid Medical Examination (RME) performed by Alicia Jovel PA-C in triage. Full HPI, ROS, assessment and treatment plan per primary provider in the Main ED. 63 yo male 1 week s/p lap justin with Dr. Burden on 12/04/23 here w/ hematochezia x3 over the last week. he noticed large amount of blood in stool this morning. endorses increased fatigue. takes aspirin 81 mg daily. did not take this today. not on AC. has since followed up with Dr. Burden for post- op fever. was told to take tylenol which he has with improvement in temp. there is periumbilical ecchymosis. obese abdomen. slightly tender around incision sites. Plan: labs, OBS Medications Administered Discontinued Medications Generic Name Dose Route Start Last Admin Trade Name Freq PRN Reason Stop Dose Admin Iohexol 85 ml 12/11/23 22:39 12/11/23 22:39 Iohexol 350 Mg/Ml 100 Ml Infus..Btl IV 12/11/23 22:40 85 ml ONCE ONE Administration Medical Decision Making Lab Data 12/11/23 22:25 12/11/23 16:24 Labs: Lab Results 12/11/23 12/11/23 Range/Units 16:24 22:25 WBC 7.4 9.3 (4.8-10.8) X10*3/uL RBC 4.86 4.79 (4.60-5.80) X10*6/uL Hgb 15.3 15.0 (14.0-18.0) g/dl Hct 43.2 42.8 (42.0-52.0) % MCV 88.9 89.4 (80.0-98.0) fL MCH 31.5 31.3 (27.0-33.0) pg MCHC 35.4 35.0 (31.0-36.0) g/dl RDW 12.0 12.1 (11.0-16.0) % Plt Count 262 244 (160-400) X10*3/uL MPV 9.3 L 9.4 (9.4-12.4) fL Immature Gran % (Auto) 0.5 H 0.4 (0.0-0.4) % Neut % (Auto) 65.1 58.9 (45-73) % Lymph % (Auto) 24.4 29.5 (20-40) % [place] % (Auto) 7.0 8.4 (2-11) % Eos % (Auto) 2.3 2.2 (0-4) % Baso % (Auto) 0.7 0.6 (0-2) % Lymph # (Auto) 1.8 2.7 (1.2-4.9) X10*3/uL [place] # (Auto) 0.5 0.8 (0.1-1.2) X10*3/uL Eos # (Auto) 0.2 0.2 (0.0-0.4) X10*3/uL Baso # (Auto) 0.1 0.1 (0.0-0.2) X10*3/uL Abs Immat Gran (auto) 0.04 H 0.04 H (0.00-0.03) X10*3/uL Absolute Neuts (auto) 4.8 5.5 (2.0-8.3) x10*3/uL Absolute Nucleated RBC 0.000 0.000 (0.0-0.012) X10*3/uL Nucleated RBC % (auto) 0.0 0.0 (0.0-0.2) /100WBC Sodium 142 (135-145) mmol/L Potassium 3.1 L (3.3-5.1) mmol/L Chloride 108 (96-108) mmol/L Carbon Dioxide 23 (22-29) mmol/L Anion Gap 14 (12-20) BUN 18 H (9-16) mg/dL Creatinine 0.83 (0.5-1.4) mg/dL Estim Creat Clear Calc 105.8 Estimated GFR > 60 Random Glucose 189 H (60-115) mg/dL Calcium 9.7 (8.4-10.2) mg/dL Magnesium 2.0 (1.6-2.6) mg/dL Total Bilirubin 0.7 (0.0-1.0) mg/dL AST 28 (5-37) U/L ALT 73 H (0-40) U/L Alkaline Phosphatase 60 (39-117) U/L Total Protein 6.9 (6.5-8.0) g/dL Albumin 4.2 (3.5-5.0) g/dL Lipase 33 (8-78) U/L Discharge Plan Discharge Clinical Impression: Bright red rectal bleeding, History of cholecystectomy Patient Disposition: Home, Self-Care Instructions: Gastrointestinal Bleeding (ED), Laparoscopic Cholecystectomy (DC) Prescriptions: No Action aspirin [Aspir-81] 81 mg Tablet,Delayed Release (Dr/Ec) 81 mg PO DAILY levothyroxine 75 mcg tablet 1 tab PO DAILY amlodipine 10 mg tablet 1 tab PO DAILY albuterol sulfate 90 mcg/actuation HFA aerosol inhaler 1 puff inhalation Q3-6H PRN (Reason: Wheezing) rosuvastatin 10 mg tablet 1 tab PO BEDTIME valsartan 50 mg PO DAILY hydrocodone-acetaminophen 5-325 mg tablet 1 tab PO Q4-6H PRN (Reason: pain) Qty: 30 0RF Rx Instructions: Partial Fill upon patient request. indapamide 1.25 mg tablet 1.25 mg PO QAM pantoprazole 40 mg tablet,delayed release (DR/EC) 40 mg PO DAILY Referrals: Simone Burden MD [Physician] - 12/14/23 Print Language: Romansh
[2023-12-11 16:29] LABS: MANUAL DIFF FLAG NO
[2023-12-11 16:38] LABS: Basophils Absolute Auto 0.1 X10*3/uL (0.0-0.2); Basophils Percent Auto 0.7 % (0-2); Eosinophils Absolute Auto 0.2 X10*3/uL (0.0-0.4); Eosinophils Percent Auto 2.3 % (0-4); Hematocrit 43.2 % (42.0-52.0); Hemoglobin 15.3 g/dl (14.0-18.0); Imm Gran Abs Auto 0.04 X10*3/uL (0.00-0.03); Imm Gran Pct Auto 0.5 % (0.0-0.4); Lymphocytes Absolute Auto 1.8 X10*3/uL (1.2-4.9); Lymphocytes Percent Auto 24.4 % (20-40); Mean Corpuscular HGB Conc 35.4 g/dl (31.0-36.0); Mean Corpuscular Hemoglobin 31.5 pg (27.0-33.0); Mean Corpuscular Volume 88.9 fL (80.0-98.0); Mean Platelet Volume 9.3 fL (9.4-12.4); Monocytes Absolute Auto 0.5 X10*3/uL (0.1-1.2); Neutrophils Absolute Auto 4.8 x10*3/uL (2.0-8.3); Neutrophils Percent Auto 65.1 % (45-73); Platelet Count 262 X10*3/uL (160-400); Red Blood Count 4.86 X10*6/uL (4.60-5.80); White Blood Count 7.4 X10*3/uL (4.8-10.8)
[2023-12-11 16:43] LABS: Alanine Aminotransferase 73 U/L (0-40); Albumin Level 4.2 g/dL (3.5-5.0); Alkaline Phosphatase 60 U/L (39-117); Anion Gap 14 (12-20); Aspartate Amino Transferase 28 U/L (5-37); Bilirubin Total 0.7 mg/dL (0.0-1.0); Blood Urea Nitrogen 18 mg/dL (9-16); Calcium 9.7 mg/dL (8.4-10.2); Carbon Dioxide 23 mmol/L (22-29); Chloride 108 mmol/L (96-108); Creatinine Clr Calc Pharmacy 105.8; Estimated Glomerular Filt Rate > 60; Glucose Random 189 mg/dL (60-115); Lipase 33 U/L (8-78); Potassium 3.1 mmol/L (3.3-5.1); Sodium 142 mmol/L (135-145); Total Protein 6.9 g/dL (6.5-8.0)
[2023-12-11 19:24] VITALS: BP 138/68; PULSE 78; RESP 18; TEMP 36.7; O2SAT 96
[2023-12-11 19:27] VITALS: BP 138/68; PULSE 73; RESP 18; O2SAT 97
--- OUTSIDE RECORDS SUMMARY | 2023-12-11 19:41 | XMS_ITS | Patient Health Record ---
Author Organization [facility] Address [address] [place] [phone] Care Team Providers Care District Commercial Superintendent Name Role Phone Jose Geiger MD Primary [...] Potassium 100 MG Oral for 90 Active [employer] 3 Active Probiotic Active Fiber Active Albuterol [...] Problem Colon cancer screening (Z12.11) Active confirmed 050978181 Problem Esophageal reflux (K21.9) Active confirmed Esophageal reflux (051575083) Problem Generalized abdominal pain (R10.84) Active confirmed 843564111 Problem Gastroesophageal reflux disease without esophagitis (K21.9) Active confirmed 746140869 Problem Fatty liver (K76.0) Active confirmed [address] scan, colon (R93.3) Active confirmed 798704540 Problem Irritable bowel syndrome with constipation and diarrhea (K58.2) Active confirmed 41953555 VITAL SIGNS Temperature 97.3 degrees Fahrenheit 03/05/2023 Blood pressure diastolic 00 mm Hg 03/05/2023 Height 64 in 03/05/2023 Blood pressure systolic 000 mm Hg 03/05/2023 Weight 245 lbs 03/05/2023 BMI 42.05 kg/m2 03/05/2023 Encounters Encounter Location Date Provider Diagnosis [facility] [address] [place] [address] 03/05/2023 Reyes Laws Jr Gastroesophageal reflux disease without esophagitis K21.9 ; Irritable bowel syndrome with constipation and diarrhea K58.2 and Fatty liver K76.0 [facility] [address] [place] [address] 07/07/2023 Reyes Laws Jr ASSESSMENTS Encounter Date [...] Name:Reyes garrido Jr, 03/07/2024 09:00:00 AM, [address] [facility], [address], [place], [address], Insurance Providers Payer Name Payer Address Payer Phone Subscriber Number Group Number Insured Name Patient Relationship to Insured Coverage Start Date Coverage End Date [facility] [address] [facility] [phone] [id number] MERVAT CANALES Self - patient is the insured MEDICAL (GENERAL) HISTORY Medical History History ICD Code Colonoscopy 07/04, lymphoid polyp, ten-y ear followup Gastroesophageal reflux disease, EGD , no HP/BE Diverticulitis Hypertension Hyperlipidemia Asthma Cardiac catheterization at [facility], no significant disease per patient hypothyroidism Surgical History Surgery Date(Month/Year) Hospitalization History Reason Date(Month/Year) twice in ER, for stomach pain.
[2023-12-11 21:34] VITALS: BP 144/81; PULSE 75; RESP 16; O2SAT 97
--- NOTE | 2023-12-11 22:19 | ED.GIBLEED ---
HPI - GI Bleed General Chief complaint: GI Bleed Stated complaint: surg last week, was told to come in Time Seen by Provider: 12/11/23 21:02 History of Present Illness HPI Narrative: Patient is a 63-year-old male presents today with having abdominal pain as diffuse. Patient is hungry. He is status post laparoscopic cholecystectomy done on December 03. No fever no chills no nausea no vomiting patient noted stool that is brown in color. With blood on top of it. Had a picture of it. Patient claims that it has happened 3 times. No recent history of colonoscopy or endoscopy. Patient from home. Related Data Home Medications ?Medication ?Instructions ?Recorded ?Confirmed albuterol sulfate 90 mcg/actuation 1 puff inhalation Q3-6H PRN 07/03/22 12/04/23 aerosol inhaler Wheezing amlodipine 10 mg tablet 1 tab PO DAILY 07/03/22 12/04/23 aspirin 81 mg tablet,delayed 81 mg PO DAILY 07/03/22 12/04/23 release levothyroxine 75 mcg tablet 1 tab PO DAILY 07/03/22 12/04/23 rosuvastatin 10 mg tablet 1 tab PO BEDTIME 07/03/22 12/04/23 valsartan 50 mg PO DAILY 07/03/22 12/04/23 indapamide 1.25 mg tablet 1.25 mg PO QAM 08/26/23 12/04/23 pantoprazole 40 mg tablet,delayed 40 mg PO DAILY 08/26/23 12/04/23 release Previous Rx's ?Medication ?Instructions ?Recorded hydrocodone 5 mg-acetaminophen 325 1 tab PO Q4-6H PRN pain #30 tabs 12/04/23 mg tablet Allergies Allergy/AdvReac Type Severity Reaction Status Date / Time Sulfa (Sulfonamide Allergy Unknown HIVES Verified 12/11/23 15:54 Antibiotics) [SULFA (SULFONAMIDE ANTIBIOTICS)] lisinopril Allergy Wheezing Verified 12/11/23 15:54 sulfamethoxazole Allergy Weakness Verified 12/11/23 15:54 [From Bactrim] trimethoprim [From Bactrim] Allergy Weakness Verified 12/11/23 15:54 Review of Systems Review of Systems: Positive blood in his stool Yes all other systems are reviewed and are negative PMFSH Past Medical History Attestation statement: The following information was validated with the patient. Medical History Hypertension Irritable bowel syndrome with constipation and diarrhea Hypercholesterolemia Gastric reflux (08/06/06) Fatty liver Esophageal reflux Hypothyroidism Asthma Hyperlipidemia HTN (hypertension) Diverticulitis GERD (gastroesophageal reflux disease) Diverticulosis Surgical History Hx laparoscopic cholecystectomy (12/04/23) H/O cardiac catheterization (~2016) H/O esophagogastroduodenoscopy H/O colonoscopy Social History Social History Alcohol intake: current Alcohol intake frequency: a few times a week Alcohol type: beer Patient Tobacco Use Status: Former Tobacco user Smoked in Last 30 Days: No Advance Directives: No Advance Directives Information Provided: No Do you have a plan to hurt others: No Plan Physical Exam Vital Signs: Vital Signs: Last Vital Signs Temp 98.3 F 12/12/23 01:08 Pulse 72 12/12/23 01:08 Resp 20 12/12/23 01:08 BP 151/74 H 12/12/23 01:08 Pulse Ox 96 12/12/23 01:08 O2 Del Method Room Air 12/12/23 01:08 BMI result Body Mass Index 42.2 Appearance: Alert. Oriented X3. No acute distress. Eyes: Pupils equal, round and reactive to light. ENT: Pharynx normal. Neck: Normal inspection. Neck supple. No lymph nodes noted. No crepitus CVS: Normal heart rate and rhythm. Pulses normal. Normal S1 and S2 Respiratory: No respiratory distress. Breath sounds normal. No Wheezing. No rales Abdomen: Soft and nontender. No rigidity. No distention. good BS x4 Skin: Skin warm and dry. Normal skin color. Normal skin turgor. Extremities: No lower extremity edema. Neurovascular intact to all extremities. No Lacerations. No Rash Neuro: Oriented X 3. No motor deficit. No sensory deficit. Moving all extermities. No slurred speech Medications Administered Discontinued Medications Generic Name Dose Route Start Last Admin Trade Name Freq PRN Reason Stop Dose Admin Iohexol 85 ml 12/11/23 22:39 12/11/23 22:39 Iohexol 350 Mg/Ml 100 Ml Infus..Btl IV 12/11/23 22:40 85 ml ONCE ONE Administration Medical Decision Making Medical Decision Making [facility] Narrative: Patient is 63 years old presented today with having abdominal pain. Had his gallbladder removed 1 week ago. The last 3 days he has been having bowel movements with very small amount of blood on top mostly brown stool. Patient has a picture of it. His hemoglobin today is 15.3. On repeat check was still 15. Baseline hemoglobin from 16-15. Patient has no dizziness no nausea no vomiting. CT scan of the abdomen was done. It showed evidence of surgery done recently. There is also an area of question inflammation around the umbilicus. Every went back and reexamined patient. There has no gross redness around the umbilicus. I discussed the case with the surgeon on-call Dr. Marr, felt comfortable with follow-up on an outpatient basis. Explained to patient if bleeding got worse to return to the ED. Patient is not on blood thinners. Is well-appearing. Agreed to plan is he also wants to go home. Currently in stable condition Differential Diagnosis Differential Diagnoses: The differential diagnosis associated with the presentation includes GI bleed, complications from surgery Admission/Observation Consideration of admission/observation: Escalation of care including admission/observation considered Consult Healthcare Provider Management of the patient was discussed with: Learning Consultant (Surgery) Lab Data [facility] Lab Attestation statement: I reviewed the patient's lab results. 12/11/23 22:25 12/11/23 16:24 Labs: Lab Results 12/11/23 12/11/23 Range/Units 16:24 22:25 WBC 7.4 9.3 (4.8-10.8) X10*3/uL RBC 4.86 4.79 (4.60-5.80) X10*6/uL Hgb 15.3 15.0 (14.0-18.0) g/dl Hct 43.2 42.8 (42.0-52.0) % MCV 88.9 89.4 (80.0-98.0) fL MCH 31.5 31.3 (27.0-33.0) pg MCHC 35.4 35.0 (31.0-36.0) g/dl RDW 12.0 12.1 (11.0-16.0) % Plt Count 262 244 (160-400) X10*3/uL MPV 9.3 L 9.4 (9.4-12.4) fL Immature Gran % (Auto) 0.5 H 0.4 (0.0-0.4) % Neut % (Auto) 65.1 58.9 (45-73) % Lymph % (Auto) 24.4 29.5 (20-40) % Stoddard % (Auto) 7.0 8.4 (2-11) % Eos % (Auto) 2.3 2.2 (0-4) % Baso % (Auto) 0.7 0.6 (0-2) % Lymph # (Auto) 1.8 2.7 (1.2-4.9) X10*3/uL Stoddard # (Auto) 0.5 0.8 (0.1-1.2) X10*3/uL Eos # (Auto) 0.2 0.2 (0.0-0.4) X10*3/uL Baso # (Auto) 0.1 0.1 (0.0-0.2) X10*3/uL Abs Immat Gran (auto) 0.04 H 0.04 H (0.00-0.03) X10*3/uL Absolute Neuts (auto) 4.8 5.5 (2.0-8.3) x10*3/uL Absolute Nucleated RBC 0.000 0.000 (0.0-0.012) X10*3/uL Nucleated RBC % (auto) 0.0 0.0 (0.0-0.2) /100WBC Sodium 142 (135-145) mmol/L Potassium 3.1 L (3.3-5.1) mmol/L Chloride 108 (96-108) mmol/L Carbon Dioxide 23 (22-29) mmol/L Anion Gap 14 (12-20) BUN 18 H (9-16) mg/dL Creatinine 0.83 (0.5-1.4) mg/dL Estim Creat Clear Calc 105.8 Estimated GFR > 60 Random Glucose 189 H (60-115) mg/dL Calcium 9.7 (8.4-10.2) mg/dL Magnesium 2.0 (1.6-2.6) mg/dL Total Bilirubin 0.7 (0.0-1.0) mg/dL AST 28 (5-37) U/L ALT 73 H (0-40) U/L Alkaline Phosphatase 60 (39-117) U/L Total Protein 6.9 (6.5-8.0) g/dL Albumin 4.2 (3.5-5.0) g/dL Lipase 33 (8-78) U/L Radiology Impression Discussion of test interpretation with radiology: I have reviewed the radiologist's reading. External Record Review External record reviewed: Inpatient record Chronic Conditions Recent history of cholecystectomy Discharge Plan Discharge Clinical Impression: Bright red rectal bleeding, History of cholecystectomy Patient Disposition: Home, Self-Care Instructions: Gastrointestinal Bleeding (ED), Laparoscopic Cholecystectomy (DC) Prescriptions: No Action aspirin [Aspir-81] 81 mg Tablet,Delayed Release (Dr/Ec) 81 mg PO DAILY levothyroxine 75 mcg tablet 1 tab PO DAILY amlodipine 10 mg tablet 1 tab PO DAILY albuterol sulfate 90 mcg/actuation HFA aerosol inhaler 1 puff inhalation Q3-6H PRN (Reason: Wheezing) rosuvastatin 10 mg tablet 1 tab PO BEDTIME valsartan 50 mg PO DAILY hydrocodone-acetaminophen 5-325 mg tablet 1 tab PO Q4-6H PRN (Reason: pain) Qty: 30 0RF Rx Instructions: Partial Fill upon patient request. indapamide 1.25 mg tablet 1.25 mg PO QAM pantoprazole 40 mg tablet,delayed release (DR/EC) 40 mg PO DAILY Referrals: Simone Burden MD [Physician] - 12/14/23 Print Language: Czech
[2023-12-11 22:30] LABS: MANUAL DIFF FLAG NO
[2023-12-11 22:31] LABS: Basophils Absolute Auto 0.1 X10*3/uL (0.0-0.2); Basophils Percent Auto 0.6 % (0-2); Eosinophils Absolute Auto 0.2 X10*3/uL (0.0-0.4); Eosinophils Percent Auto 2.2 % (0-4); Hematocrit 42.8 % (42.0-52.0); Imm Gran Abs Auto 0.04 X10*3/uL (0.00-0.03); Imm Gran Pct Auto 0.4 % (0.0-0.4); Lymphocytes Absolute Auto 2.7 X10*3/uL (1.2-4.9); Lymphocytes Percent Auto 29.5 % (20-40); Mean Corpuscular Hemoglobin 31.3 pg (27.0-33.0); Mean Corpuscular Volume 89.4 fL (80.0-98.0); Mean Platelet Volume 9.4 fL (9.4-12.4); Monocytes Absolute Auto 0.8 X10*3/uL (0.1-1.2); Monocytes Percent Auto 8.4 % (2-11); Neutrophils Absolute Auto 5.5 x10*3/uL (2.0-8.3); Neutrophils Percent Auto 58.9 % (45-73); Platelet Count 244 X10*3/uL (160-400); Red Blood Count 4.79 X10*6/uL (4.60-5.80); Red Cell Distribution Width 12.1 % (11.0-16.0); White Blood Count 9.3 X10*3/uL (4.8-10.8)
[2023-12-11] MEDS: iohexoL 350 MG/ML 100 ML INFUS..BTL 85 ML IV (22:39)
[2023-12-12 01:08] VITALS: BP 151/74; PULSE 72; RESP 20; TEMP 36.8; O2SAT 96
--- NOTE | 2023-12-12 01:41 | MHC.EDTECH ---
This tech took over care of patient at 0100,hourly rounds completed,call dutta in reach
[2023-12-12 02:55] VITALS: BP 148/78; PULSE 68; RESP 18; TEMP 36.7; O2SAT 97
== END 2023-12-12 02:56 | disposition home or self-care (01) ==
PROVIDERS: Physician Assistant Medical; Emergency Provider Emergency Medicine Emergency Medical Services; PCP Internal Medicine
DX: K62.5 Hemorrhage of anus and rectum (principal); I10 Essential (primary) hypertension; J45.909 Unspecified asthma, uncomplicated; Z79.82 Long term (current) use of aspirin; Z90.49 Acquired absence of other specified parts of digestive tract
CPT/HCPCS: 36415; 74177; 80053; 83690; 83735; 85025; 99284; Q9967

== ENCOUNTER 2023-12-15 09:50 | Outpatient (AMB) | payer OTHER, SELFPAY ==
--- NOTE | 2023-12-15 09:54 | MHC.OFFVIS ---
Intake Visit Reasons: S/P lap justin Intake Note: Patient here s/p lap justin. Reports incisions healing well. Patient c/o: steri strips getting scabby. No longer taking rx pain meds. SX: 12-04-23. Armor Reconnaissance Vehicle Crewman Required: No Accompanied by: Self / Same As Patient Allergies Sulfa (Sulfonamide Antibiotics) [SULFA (SULFONAMIDE ANTIBIOTICS)] Allergy (Unknown, Verified 12/15/23 09:55) HIVES lisinopril Allergy (Verified 12/15/23 09:55) Wheezing sulfamethoxazole [From Bactrim] Allergy (Verified 12/15/23 09:55) Weakness trimethoprim [From Bactrim] Allergy (Verified 12/15/23 09:55) Weakness HPI Comments Details: Patient presents for follow-up. He is doing quite well. Starting a diet. He is having some loose stool. He had an episode of bright red blood which was evaluated emergency department over the weekend and this has resolved. Patient's history of anal fissure. Patient had a colonoscopy within the last year and a half which was within normal limits He is increasing his activity level. No incisional issues. [facility] Medical History Hypertension Irritable bowel syndrome with constipation and diarrhea Hypercholesterolemia Gastric reflux (08/06/06) Fatty liver Esophageal reflux Hypothyroidism Asthma Hyperlipidemia HTN (hypertension) Diverticulitis GERD (gastroesophageal reflux disease) Diverticulosis Surgical History Hx laparoscopic cholecystectomy (12/04/23) H/O cardiac catheterization (~2016) H/O esophagogastroduodenoscopy H/O colonoscopy Social History Alcohol intake: current Alcohol intake frequency: a few times a week Alcohol type: beer Patient Tobacco Use Status: Former Tobacco user Physical Exam Eyes Other: Anicteric GI Other: Abdomen is very corpulent, soft, all wounds clean dry and intact. Patient had some scrotal swelling. No obvious groin hernias bilaterally were demonstrated. Assessment & Plan Assessment & Plan (1) Status post laparoscopic cholecystectomy: Code(s): Z90.49 - Acquired absence of other specified parts of digestive tract Category: Medical Plan Patient has been given local instructions including avoiding strenuous activities for next 2 weeks time, diet as tolerated, Lomotil/Imodium if loose stools persist and will otherwise follow-up p.r.n.. Coding Level of Care Code Global (22011) Diagnoses Status post laparoscopic cholecystectomy Z90.49
== END 2023-12-15 10:01 | disposition home or self-care (01) ==
PROVIDERS: PCP Internal Medicine; Visit Provider Surgery
DX: Z90.49 Acquired absence of other specified parts of digestive tract (principal)
CPT/HCPCS: 99024

== ENCOUNTER → 2023-12-15 09:50 | Outpatient (BNVA) | payer OTHER, SELFPAY | PROVIDERS: PCP Internal Medicine; Visit Provider Surgery ==

== ENCOUNTER 2024-02-01 08:46 | Outpatient (AMB) | payer OTHER, SELFPAY ==
--- NOTE | 2024-02-01 08:47 | MHC.OFFVIS ---
Vital Signs 02/01/24 08:51 Weight 250 lb BP 142/73 H Blood Pressure Location Rt radial Position Sitting Pulse 77 Intake Visit Reasons: s/p cholecystectomy 12/03 in pain Intake Note: Patient here s/p lap justin on 12-04-23. Patient c/o: intestinal issues. Diarrhea. Awaiting call from Dr. Laws/ GI. Letter Carrier Required: No Accompanied by: Self / Same As Patient Allergies Sulfa (Sulfonamide Antibiotics) [SULFA (SULFONAMIDE ANTIBIOTICS)] Allergy (Unknown, Verified 02/01/24 08:51) HIVES lisinopril Allergy (Verified 02/01/24 08:51) Wheezing sulfamethoxazole [From Bactrim] Allergy (Verified 02/01/24 08:51) Weakness trimethoprim [From Bactrim] Allergy (Verified 02/01/24 08:51) Weakness HPI Comments Details: Patient presents because of a collection of nonspecific upper abdominal/left upper quadrant abdominal pain as well as diarrhea and loose stool. He has history of chronic GI issues and has been seen by Dr. Laws in the past for this. He has tried Lomotil regarding his loose stool with minimal improvement. The meantime, he is complaining of bloating, nausea, and left upper quadrant abdominal symptoms. He states he has had longstanding issue was should symptoms in the past. Patient is rough 2 months status post laparoscopic cholecystectomy [facility] Medical History Hypertension Irritable bowel syndrome with constipation and diarrhea Hypercholesterolemia Gastric reflux (08/06/06) Fatty liver Esophageal reflux Hypothyroidism Asthma Hyperlipidemia HTN (hypertension) Diverticulitis GERD (gastroesophageal reflux disease) Diverticulosis Surgical History Hx laparoscopic cholecystectomy (12/04/23) H/O cardiac catheterization (~2016) H/O esophagogastroduodenoscopy H/O colonoscopy Social History Alcohol intake: current Alcohol intake frequency: a few times a week Alcohol type: beer Patient Tobacco Use Status: Former Tobacco user Physical Exam Vital Signs: Last Vital Signs Pulse 77 02/01/24 08:51 BP 142/73 H 02/01/24 08:51 Eyes Other: Anicteric GI Other: Abdomen corpulent, soft. All wounds clean dry and intact healing very well. Mild upper abdominal tenderness but no evidence of any guarding, rebound, or rigidity Assessment & Plan Assessment & Plan (1) Status post laparoscopic cholecystectomy: Code(s): Z90.49 - Acquired absence of other specified parts of digestive tract Category: Medical Plan I suggested the patient try Imodium for his loose stool. He has seen Dr. Laws and he called last week for an appointment. We will call his office to see whether expedite that. From a surgical perspective, at present, patient is stable. He will otherwise follow-up with me p.r.n.. All questions answered. Coding Level of Care Code Global (17884) Diagnoses Status post laparoscopic cholecystectomy Z90.49
[2024-02-01 08:51] VITALS: BP 142/73; PULSE 77
== END 2024-02-01 09:15 | disposition home or self-care (01) ==
PROVIDERS: PCP Internal Medicine; Visit Provider Surgery
DX: Z90.49 Acquired absence of other specified parts of digestive tract (principal)
CPT/HCPCS: 99024

== ENCOUNTER → 2024-02-01 08:46 | Outpatient (BNVA) | payer OTHER, SELFPAY | PROVIDERS: PCP Internal Medicine; Visit Provider Surgery ==

== ENCOUNTER 2024-02-03 17:46 | Outpatient (REF) | payer OTHER, SELFPAY ==
[2024-02-03 22:12] LABS: CDiff Gene PCR NEGATIVE (Negative)
[2024-02-04 12:06] LABS: Adenovirus F 40/41 Not Detected (Not Detect.); Astrovirus Not Detected (Not Detect.); Campylobacter Not Detected (Not Detect.); Cryptosporidium Not Detected (Not Detect.); Cyclospora cayetanensis Not Detected (Not Detect.); E. coli EAEC Not Detected (Not Detect.); E. coli EPEC Detected (Not Detect.); E. coli ETEC Not Detected (Not Detect.); E. coli STEC Not Detected (Not Detect.); Entamoeba histolytica Not Detected (Not Detect.); Giardia lamblia Not Detected (Not Detect.); Norovirus GI/GII Not Detected (Not Detect.); Plesiomonas shigelloides Not Detected (Not Detect.); Rotavirus A Not Detected (Not Detect.); Salmonella Not Detected (Not Detect.); Sapovirus Not Detected (Not Detect.); Shigella sp./EIEC Not Detected (Not Detect.); Vibrio Not Detected (Not Detect.); Vibrio Cholerae Not Detected (Not Detect.); Yersinia enterocolitica Not Detected (Not Detect.)
[2024-02-06 16:47] LABS: Fecal Fat Qualitative Normal (Normal)
[2024-02-11 00:09] LABS: Pancreatic Elastase-1 >500 mcg/g
== END 2024-02-03 17:47 | disposition home or self-care (01) ==
LOC: HO.LNP 17:46
PROVIDERS: Visit Provider Internal Medicine Gastroenterology
DX: R19.7 Diarrhea, unspecified (principal)
CPT/HCPCS: 82656; 82705; 87177; 87209; 87493; 87507

== ENCOUNTER 2024-04-11 13:49 | Outpatient (REF) | payer OTHER, SELFPAY ==
[2024-04-11 15:15] LABS: Hematocrit 47.3 % (42.0-52.0); Hemoglobin 16.2 g/dl (14.0-18.0); Mean Corpuscular HGB Conc 34.2 g/dl (31.0-36.0); Mean Corpuscular Volume 90.6 fL (80.0-98.0); Mean Platelet Volume 10.1 fL (9.4-12.4); Platelet Count 275 X10*3/uL (160-400); Red Blood Count 5.22 X10*6/uL (4.60-5.80); Red Cell Distribution Width 11.9 % (11.0-16.0); White Blood Count 8.8 X10*3/uL (4.8-10.8)
[2024-04-11 15:34] LABS: Alanine Aminotransferase 88 U/L (0-40); Albumin Level 4.5 g/dL (3.5-5.0); Alkaline Phosphatase 63 U/L (39-117); Aspartate Amino Transferase 31 U/L (5-37); Bilirubin Direct 0.2 mg/dL (0.0-0.5); Bilirubin Total 0.5 mg/dL (0.0-1.0); Lipase 44 U/L (8-78); Total Protein 7.2 g/dL (6.5-8.0)
== END 2024-04-11 13:50 | disposition home or self-care (01) ==
LOC: HO.LAB 13:49
PROVIDERS: PCP Internal Medicine; Visit Provider Internal Medicine Gastroenterology
DX: R10.84 Generalized abdominal pain (principal)
CPT/HCPCS: 36415; 80076; 83690; 85027

== ENCOUNTER 2024-04-18 08:23 | Outpatient (REF) | payer OTHER, SELFPAY ==
--- NOTE | ~2024-04-18 | US_ITS ---
EXAMINATION: US ABDOMEN COMPLETE CLINICAL INFORMATION: Generalized abdominal pain. COMPARISON: CT abdomen and pelvis 12/11/2023. Limited abdominal ultrasound 08/20/2023. CT abdomen and pelvis 09/09/2017. TECHNIQUE: Real-time imaging of the abdominal viscera. Technically difficult study secondary to body habitus. FINDINGS: PANCREAS: Visualized portions of the pancreatic head and body are unremarkable, the tail is obscured by overlying bowel gas. ABDOMINAL AORTA: Mid abdominal aorta is normal in size, the proximal and distal aorta are not visualized due to overlying bowel gas. INFERIOR VENA CAVA: Visualized portions are normal. LIVER: The liver is normal in size. The liver contour is normal. There is diffusely increased liver parenchymal echogenicity. No focal hepatic lesion. There is no intrahepatic biliary duct dilatation seen. GALLBLADDER: Surgically absent. COMMON BILE DUCT: Normal in caliber measuring 0.8 cm in diameter. RIGHT KIDNEY: No hydronephrosis. No renal calculi or focal parenchymal lesions. The kidney measures 11.2 cm in maximum dimension. LEFT KIDNEY: No hydronephrosis. No renal calculi or focal parenchymal lesions. The kidney measures 13.3 cm in maximum dimension. SPLEEN: The spleen measures 11.2 cm in maximum dimension. FREE FLUID: None. US/US abdomen complete IMPRESSION: 1. Diffusely increased liver parenchymal echogenicity suggests underlying fatty infiltration. No focal hepatic lesions. 2. Status post cholecystectomy. Electronically signed by: Trevor Lemus MD 04/18/2024 11:18 AM EDT
== END 2024-04-18 08:24 | disposition home or self-care (01) ==
LOC: HO.US 08:23
PROVIDERS: PCP Internal Medicine; Visit Provider Internal Medicine Gastroenterology
DX: R10.84 Generalized abdominal pain (principal)
CPT/HCPCS: 76700

== ENCOUNTER 2024-05-25 18:10 | Emergency (ER) | payer OTHER, SELFPAY ==
--- NOTE | ~2024-05-25 | CT_ITS ---
EXAMINATION: CT ABDOMEN AND PELVIS WITH CONTRAST CLINICAL INFORMATION: Abdominal pain COMPARISON: Ultrasound abdomen 04/18/2024, CT abdomen pelvis 12/11/2023 , CT abdomen pelvis 09/09/2017 TECHNIQUE: Multidetector volumetric imaging was performed from the superior aspect of the liver through the pubic symphysis with intravenous contrast. A total of 85 mL of Omnipaque 350 was utilized for the study. Sagittal and coronal reformatted images were obtained on the technologist's workstation. This CT examination was performed using dose optimization techniques as appropriate, variously including the following: *Automated exposure control *Adjustment of mA and/or kV according to patient size (this includes techniques or standardized protocols for targeted exams where dose is matched to indication/reason for exam; i.e. extremities or head) *Use of iterative reconstruction technique DLP: 1019 mGy-cm FINDINGS: LUNG BASES: The visualized lung bases are unremarkable aside from some mild bibasilar atelectasis. LIVER, GALLBLADDER, AND BILIARY TREE: The liver is enlarged measuring over 20 cm in greatest length with decreased attenuation consistent with hepatic steatosis. No focal hepatic lesion or biliary ductal dilatation is present. Status post cholecystectomy. PANCREAS: Unremarkable. SPLEEN: Unremarkable. ADRENAL GLANDS: Unremarkable. KIDNEYS AND URETERS: The kidneys are normal in size, shape, and attenuation. No hydronephrosis, hydroureter, or calculi seen. No perinephric stranding. BLADDER: Unremarkable. GASTROINTESTINAL TRACT: Marked diverticulosis present in the left colon without diverticulitis. The small and large bowel are otherwise unremarkable. The appendix is unremarkable. ABDOMINAL WALL: There is a small periumbilical hernia seen containing only fat. There is inflammation in this region with thickening of the fascia and streaky changes in the periumbilical fat. Similar but slightly less marked changes were present on the 12/11/2023 CT abdomen pelvis. On the 09/09/2017 CT scan, no such findings were present. LYMPH NODES: No retroperitoneal lymphadenopathy VASCULAR: Minimal atherosclerotic changes are present in the aorta and iliofemoral vessels. There is no evidence of an abdominal aortic aneurysm. PELVIC VISCERA: There is mild BPH. Seminal vesicles appear normal. OSSEOUS STRUCTURES: Unremarkable. CT/CT abdomen pelvis w IV con IMPRESSION: 1. A cause for the patient's abdominal pain has not been found. 2. Incidental note made of an enlarged fatty liver, cholecystectomy, colonic diverticulosis without diverticulitis and mild BPH. 3. There is a small periumbilical hernia containing only fat with some inflammation in the periumbilical fat. Similar but slightly less marked changes were present on the 12/11/2023 CT abdomen pelvis. Fleischner guidelines were followed. Electronically signed by: Norbert Yost MD 05/25/2024 10:53 PM EST
[2024-05-25 18:23] VITALS: BP 189/94; PULSE 100; RESP 20; TEMP 37.2; O2SAT 95; BMI 41.8
--- NOTE | 2024-05-25 18:28 | ED.GENADULT ---
HPI - General Adult General Chief complaint: Abdominal Pain Stated complaint: abdominal pain Time Seen by Provider: 05/25/24 20:16 History of Present Illness HPI narrative: seen br Dr. Wood. Related Data Home Medications ?Medication ?Instructions ?Recorded ?Confirmed albuterol sulfate 90 mcg/actuation 1 puff inhalation Q3-6H PRN 07/03/22 02/01/24 aerosol inhaler Wheezing amlodipine 10 mg tablet 1 tab PO DAILY 07/03/22 02/01/24 aspirin 81 mg tablet,delayed 81 mg PO DAILY 07/03/22 02/01/24 release levothyroxine 75 mcg tablet 1 tab PO DAILY 07/03/22 02/01/24 rosuvastatin 10 mg tablet 1 tab PO BEDTIME 07/03/22 02/01/24 valsartan 50 mg PO DAILY 07/03/22 02/01/24 indapamide 1.25 mg tablet 1.25 mg PO QAM 08/26/23 02/01/24 pantoprazole 40 mg tablet,delayed 40 mg PO DAILY 08/26/23 02/01/24 release Allergies Allergy/AdvReac Type Severity Reaction Status Date / Time Sulfa (Sulfonamide Allergy Unknown HIVES Verified 05/25/24 18:27 Antibiotics) [SULFA (SULFONAMIDE ANTIBIOTICS)] lisinopril Allergy Wheezing Verified 05/25/24 18:27 sulfamethoxazole Allergy Weakness Verified 05/25/24 18:27 [From Bactrim] trimethoprim [From Bactrim] Allergy Weakness Verified 05/25/24 18:27 PMFSH Past Medical History Medical History Hypertension Irritable bowel syndrome with constipation and diarrhea Hypercholesterolemia Gastric reflux (08/06/06) Fatty liver Esophageal reflux Hypothyroidism Asthma Hyperlipidemia HTN (hypertension) Diverticulitis GERD (gastroesophageal reflux disease) Diverticulosis Surgical History Hx laparoscopic cholecystectomy (12/04/23) H/O cardiac catheterization (~2016) H/O esophagogastroduodenoscopy H/O colonoscopy Social History Social History Alcohol intake: current Alcohol intake frequency: a few times a month Alcohol type: beer Patient Tobacco Use Status: Former Tobacco user Smoked in Last 30 Days: No Use of substances other than those prescribed or required for medical reasons: No Advance Directives: No Advance Directives Information Provided: No Do you have a plan to hurt others: No Plan Physical Exam ED Vital Signs: Vital Signs - 24 hr 05/25/24 18:23 05/25/24 20:24 05/25/24 23:47 Temperature 99.0 F 98.2 F 98.2 F Pulse Rate 100 84 88 Respiratory Rate 20 16 16 Blood Pressure 189/94 H 152/82 H 159/86 H Pulse Oximetry 95 97 96 Oxygen Delivery Method Room Air Room Air Room Air 05/25/24 23:50 05/26/24 01:06 05/26/24 01:08 Temperature 98.5 F 98.5 F Pulse Rate 88 88 Respiratory Rate 16 16 16 Blood Pressure 153/84 H 153/84 H Pulse Oximetry 96 Oxygen Delivery Method Room Air 05/26/24 02:05 05/26/24 02:05 05/26/24 02:24 Temperature 98.5 F 98.5 F 98.5 F Pulse Rate 88 88 88 Respiratory Rate 16 16 16 Blood Pressure 153/84 H 153/84 H 153/84 H Pulse Oximetry 97 Oxygen Delivery Method Room Air BMI result Body Mass Index 41.8 Course Course Course Narrative: RME: done by LUCILA Gutierrez. 63-year-old male presents to ED for abdominal pain, dysuria, and increased urinary frequency. Patient denies any fever, chills, flank pain. Patient is positive for lower abdominal tenderness. UA labs ordered Medications Administered Discontinued Medications Generic Name Dose Route Start Last Admin Trade Name Amna PRN Reason Stop Dose Admin Acetaminophen 650 mg 05/26/24 01:15 05/26/24 01:25 Acetaminophen 325 Mg Tablet PO 05/26/24 01:16 650 mg ONCE ONE Administration Ibuprofen 600 mg 05/26/24 01:15 05/26/24 01:25 Ibuprofen 600 Mg Tablet PO 05/26/24 01:16 600 mg ONCE ONE Administration Iohexol 85 ml 05/25/24 21:39 05/25/24 21:40 Iohexol 350 Mg/Ml 100 Ml Infus..Btl IV 05/25/24 21:40 85 ml ONCE ONE Administration Morphine Sulfate 2 mg 05/25/24 23:02 05/25/24 23:50 Morphine Sulfate 2 Mg/Ml Cartridge IVPUSH 05/25/24 23:03 2 mg ONCE ONE Administration Protocol Medical Decision Making Lab Data 05/25/24 19:57 05/25/24 19:57 Labs: Lab Results 05/25/24 05/25/24 Range/Units 19:57 23:53 WBC 10.0 (4.8-10.8) X10*3/uL RBC 5.37 (4.60-5.80) X10*6/uL Hgb 16.9 (14.0-18.0) g/dl Hct 48.1 (42.0-52.0) % MCV 89.6 (80.0-98.0) fL MCH 31.5 (27.0-33.0) pg MCHC 35.1 (31.0-36.0) g/dl RDW 12.0 (11.0-16.0) % Plt Count 281 (160-400) X10*3/uL MPV 9.4 (9.4-12.4) fL Immature Gran % (Auto) 0.5 H (0.0-0.4) % Neut % (Auto) 68.4 (45-73) % Lymph % (Auto) 21.1 (20-40) % [place] % (Auto) 8.3 (2-11) % Eos % (Auto) 1.1 (0-4) % Baso % (Auto) 0.6 (0-2) % Lymph # (Auto) 2.1 (1.2-4.9) X10*3/uL [place] # (Auto) 0.8 (0.1-1.2) X10*3/uL Eos # (Auto) 0.1 (0.0-0.4) X10*3/uL Baso # (Auto) 0.1 (0.0-0.2) X10*3/uL Abs Immat Gran (auto) 0.05 H (0.00-0.03) X10*3/uL Absolute Neuts (auto) 6.9 (2.0-8.3) x10*3/uL Absolute Nucleated RBC 0.000 (0.0-0.012) X10*3/uL Nucleated RBC % (auto) 0.0 (0.0-0.2) /100WBC Sodium 141 (135-145) mmol/L Potassium 4.2 D (3.3-5.1) mmol/L Chloride 102 (96-108) mmol/L Carbon Dioxide 29 (22-29) mmol/L Anion Gap 14 (12-20) BUN 9 (9-16) mg/dL Creatinine 1.08 (0.5-1.4) mg/dL Estim Creat Clear Calc 80.9 Estimated GFR > 60 Random Glucose 133 H (60-115) mg/dL Lactic Acid 1.1 (0.5-2.0) mmol/L Calcium 9.6 (8.4-10.2) mg/dL Total Bilirubin 1.0 (0.0-1.0) mg/dL AST 29 (5-37) U/L ALT 83 H (0-40) U/L Alkaline Phosphatase 73 (39-117) U/L Troponin I High Sens < 2.7 (<3.5-35.0) ng/L Total Protein 7.7 (6.5-8.0) g/dL Albumin 4.7 (3.5-5.0) g/dL Lipase 21 (8-78) U/L Urine Color Yellow Urine Appearance Clear Urine pH 5.5 (5.0-9.0) Ur Specific [place] <= 1.005 (1.005-1.025) Urine Protein Negative (Neg-Trace) mg/dL Urine Glucose (UA) Negative (Negative) mg/dL Urine Ketones 15 (Negative) mg/dL Urine Blood Negative (Negative) Urine Nitrite Negative (Negative) Ur Leukocyte Esterase Negative (Negative) Discharge Plan Discharge Clinical Impression: Abdominal pain, Hernia Patient Disposition: Home, Self-Care Additional Instructions: Please follow up with your primary care provider in the next 24-48 hours. If you develop any new or worsening symptoms please return to the emergency department Prescriptions: No Action aspirin [Aspir-81] 81 mg Tablet,Delayed Release (Dr/Ec) 81 mg PO DAILY levothyroxine 75 mcg tablet 1 tab PO DAILY amlodipine 10 mg tablet 1 tab PO DAILY albuterol sulfate 90 mcg/actuation HFA aerosol inhaler 1 puff inhalation Q3-6H PRN (Reason: Wheezing) rosuvastatin 10 mg tablet 1 tab PO BEDTIME valsartan 50 mg PO DAILY indapamide 1.25 mg tablet 1.25 mg PO QAM pantoprazole 40 mg tablet,delayed release (DR/EC) 40 mg PO DAILY Stand Alone Forms: Work/School Release Interventions: ED Discharge Assessment Last Done: 05/26/24 02:24 Discharge Date/Time: 05/26/24 02:25 Print Language: Surinamese
[2024-05-25 20:02] LABS: MANUAL DIFF FLAG NO
[2024-05-25 20:06] LABS: Appearance Urine Clear; Color Urine Yellow; Glucose Urine UA Negative (Negative); Leukocyte Esterase Urine Negative (Negative); Nitrite Urine Negative (Negative); PH 5.5 (5.0-9.0); Specific Gravity - Urine <= 1.005 (1.005-1.025); Urine Blood Negative (Negative); Urine Ketones 15 mg/dL (Negative); Urine Protein Negative (Neg-Trace)
[2024-05-25 20:09] LABS: Basophils Absolute Auto 0.1 X10*3/uL (0.0-0.2); Basophils Percent Auto 0.6 % (0-2); Eosinophils Absolute Auto 0.1 X10*3/uL (0.0-0.4); Eosinophils Percent Auto 1.1 % (0-4); Hematocrit 48.1 % (42.0-52.0); Hemoglobin 16.9 g/dl (14.0-18.0); Imm Gran Abs Auto 0.05 X10*3/uL (0.00-0.03); Imm Gran Pct Auto 0.5 % (0.0-0.4); Lymphocytes Absolute Auto 2.1 X10*3/uL (1.2-4.9); Lymphocytes Percent Auto 21.1 % (20-40); Mean Corpuscular HGB Conc 35.1 g/dl (31.0-36.0); Mean Corpuscular Hemoglobin 31.5 pg (27.0-33.0); Mean Corpuscular Volume 89.6 fL (80.0-98.0); Mean Platelet Volume 9.4 fL (9.4-12.4); Monocytes Absolute Auto 0.8 X10*3/uL (0.1-1.2); Monocytes Percent Auto 8.3 % (2-11); Neutrophils Absolute Auto 6.9 x10*3/uL (2.0-8.3); Neutrophils Percent Auto 68.4 % (45-73); Platelet Count 281 X10*3/uL (160-400); Red Blood Count 5.37 X10*6/uL (4.60-5.80)
[2024-05-25 20:18] LABS: Alanine Aminotransferase 83 U/L (0-40); Albumin Level 4.7 g/dL (3.5-5.0); Alkaline Phosphatase 73 U/L (39-117); Anion Gap 14 (12-20); Aspartate Amino Transferase 29 U/L (5-37); Blood Urea Nitrogen 9 mg/dL (9-16); Calcium 9.6 mg/dL (8.4-10.2); Carbon Dioxide 29 mmol/L (22-29); Chloride 102 mmol/L (96-108); Creatinine Clr Calc Pharmacy 80.9; Estimated Glomerular Filt Rate > 60; Glucose Random 133 mg/dL (60-115); Potassium 4.2 mmol/L (3.3-5.1); Sodium 141 mmol/L (135-145); Total Protein 7.7 g/dL (6.5-8.0)
[2024-05-25 20:24] VITALS: BP 152/82; PULSE 84; RESP 16; TEMP 36.8; O2SAT 97
[2024-05-25 20:55] LABS: Lipase 21 U/L (8-78)
[2024-05-25] MEDS: iohexoL 350 MG/ML 100 ML INFUS..BTL 85 ML IV (21:40)
[2024-05-25 23:47] VITALS: BP 159/86; PULSE 88; RESP 16; TEMP 36.8; O2SAT 96
[2024-05-25 23:50] VITALS: RESP 16
[2024-05-25] MEDS: Morphine Sulfate 2 MG/ML CARTRIDGE IVPUSH (23:50)
--- NOTE | 2024-05-25 23:54 | PC.NURSE ---
pt medicated for mid abd pain rad to lower left back.
--- NOTE | 2024-05-26 00:03 | MHC.EDTECH ---
This pct assumed care of Patient at 2315 ,repeated lactic acid and trop drawn and sent to lab .Call dutta within Pt reach .
--- NOTE | 2024-05-26 00:09 | PC.NURSE ---
pt medicated for abd pain, labs drawn and sent waiting results.
[2024-05-26 00:15] LABS: Lactic Acid 1.1 mmol/L (0.5-2.0)
[2024-05-26 00:22] LABS: Troponin-I High Sensitivity < 2.7 ng/L (<3.5-35.0)
[2024-05-26 01:06] VITALS: BP 153/84; PULSE 88; RESP 16; TEMP 36.9
[2024-05-26 01:08] VITALS: BP 153/84; PULSE 88; RESP 16; TEMP 36.9; O2SAT 96
--- NOTE | 2024-05-26 01:13 | ECG_ITS ---
Test Reason : abd pain Blood Pressure : / mmHG Vent. Rate : 078 BPM Atrial Rate : 078 BPM P-R Int : 210 ms QRS Dur : 096 ms QT Int : 398 ms P-R-T Axes : 059 -14 027 degrees QTc Int : 453 ms Sinus rhythm with 1st degree A-V block Inferior infarct (cited on or before 09-SEP-2017) Abnormal ECG When compared with ECG of 20-AUG-2023 03:54, No significant change was found Referred By: Abdias Wood Electronically Signed By:Jl Young
[2024-05-26] MEDS: Acetaminophen 325 MG TABLET 650 MG PO (01:25)
[2024-05-26] MEDS: Ibuprofen 600 MG TABLET PO (01:25)
--- NOTE | 2024-05-26 01:58 | MHC.EDTECH ---
Provider said not to drawn repeated lactic acid .0200 ,ekg taken and was read by Provider ,0200 ,rounding and vitals done .
[2024-05-26 02:05] VITALS: BP 153/84; PULSE 88; RESP 16; TEMP 36.9
--- NOTE | 2024-05-26 02:08 | ED_ITS ---
HPI - Abdominal Pain General Chief Complaint: Abdominal Pain Stated Complaint: abdominal pain Time Seen by Provider: 05/25/24 20:16 History of Present Illness ED Provider: [place] HPI narrative: 63-year-old male with past medical history of cholecystectomy presenting for abdominal pain. Patient has been experiencing periumbilical abdominal pain since Thursday. He states that it started severe however has been gradually improving. He also endorses dysuria however denies hematuria, nausea, vomiting, testicular pain, chest pain, shortness of breath. He states he has never had similar symptoms in the past however he was told that he might have a hernia by 1 of his outpatient provider MD elicited complaint: abdominal pain Related Data Home Medications ?Medication ?Instructions ?Recorded ?Confirmed albuterol sulfate 90 mcg/actuation 1 puff inhalation Q3-6H PRN 07/03/22 02/01/24 aerosol inhaler Wheezing amlodipine 10 mg tablet 1 tab PO DAILY 07/03/22 02/01/24 aspirin 81 mg tablet,delayed 81 mg PO DAILY 07/03/22 02/01/24 release levothyroxine 75 mcg tablet 1 tab PO DAILY 07/03/22 02/01/24 rosuvastatin 10 mg tablet 1 tab PO BEDTIME 07/03/22 02/01/24 valsartan 50 mg PO DAILY 07/03/22 02/01/24 indapamide 1.25 mg tablet 1.25 mg PO QAM 08/26/23 02/01/24 pantoprazole 40 mg tablet,delayed 40 mg PO DAILY 08/26/23 02/01/24 release Allergies Allergy/AdvReac Type Severity Reaction Status Date / Time Sulfa (Sulfonamide Allergy Unknown HIVES Verified 05/25/24 18:27 Antibiotics) [SULFA (SULFONAMIDE ANTIBIOTICS)] lisinopril Allergy Wheezing Verified 05/25/24 18:27 sulfamethoxazole Allergy Weakness Verified 05/25/24 18:27 [From Bactrim] trimethoprim [From Bactrim] Allergy Weakness Verified 05/25/24 18:27 Review of Systems Review of Systems Patient endorsing abdominal pain and dysuria Yes all other systems are reviewed and are negative [facility] Past Medical History Attestation statement: The following information was validated with the patient. [facility] Narrative: Cholecystectomy Medical History Hypertension Irritable bowel syndrome with constipation and diarrhea Hypercholesterolemia Gastric reflux (08/06/06) Fatty liver Esophageal reflux Hypothyroidism Asthma Hyperlipidemia HTN (hypertension) Diverticulitis GERD (gastroesophageal reflux disease) Diverticulosis Surgical History Hx laparoscopic cholecystectomy (12/04/23) H/O cardiac catheterization (~2016) H/O esophagogastroduodenoscopy H/O colonoscopy Social History Social History Alcohol intake: current Alcohol intake frequency: a few times a month Alcohol type: beer Patient Tobacco Use Status: Former Tobacco user Smoked in Last 30 Days: No Use of substances other than those prescribed or required for medical reasons: No Advance Directives: No Advance Directives Information Provided: No Do you have a plan to hurt others: No Plan Physical Exam ED Vital Signs: Vital Signs - 24 hr 05/25/24 18:23 05/25/24 20:24 05/25/24 23:47 Temperature 99.0 F 98.2 F 98.2 F Pulse Rate 100 84 88 Respiratory Rate 20 16 16 Blood Pressure 189/94 H 152/82 H 159/86 H Pulse Oximetry 95 97 96 Oxygen Delivery Method Room Air Room Air Room Air 05/25/24 23:50 05/26/24 01:06 05/26/24 01:08 Temperature 98.5 F 98.5 F Pulse Rate 88 88 Respiratory Rate 16 16 16 Blood Pressure 153/84 H 153/84 H Pulse Oximetry 96 Oxygen Delivery Method Room Air 05/26/24 02:05 05/26/24 02:05 Temperature 98.5 F 98.5 F Pulse Rate 88 88 Respiratory Rate 16 16 Blood Pressure 153/84 H 153/84 H Pulse Oximetry Oxygen Delivery Method BMI result Body Mass Index 41.8 Well-appearing male Lungs clear to auscultation bilaterally; unlabored breathing Normal S1-S2 regular rate and rhythm Abdomen is soft, mildly distended with periumbilical tenderness to palpation; well healed surgical incision Testicular exam deferred Medical Decision Making Medical Decision Making MDM Narrative: This is a 63-year-old male presenting with abdominal pain. I am concerned for the following; enteritis, diverticulitis, hernia, biliary disease, pancreatitis -labs and imaging studies ordered -labs notable for stable H&H, no white count, electrolytes within normal limits, normal creatinine, normal lactate, negative troponin, normal LFTs -UA clean -no signs of ischemia on patient's EKG -I do not appreciate SP on patient's CT however the radiologist noted periumbilical hernia with information -at this time there is no concern for incarcerated/strangulated hernia; on reassessment patient's symptoms have improved -patient feels comfortable being discharged; I gave him strict return precautions and follow up instructions Lab Data 05/25/24 19:57 05/25/24 19:57 Labs: Lab Results 05/25/24 05/25/24 Range/Units 19:57 23:53 WBC 10.0 (4.8-10.8) X10*3/uL RBC 5.37 (4.60-5.80) X10*6/uL Hgb 16.9 (14.0-18.0) g/dl Hct 48.1 (42.0-52.0) % MCV 89.6 (80.0-98.0) fL MCH 31.5 (27.0-33.0) pg MCHC 35.1 (31.0-36.0) g/dl RDW 12.0 (11.0-16.0) % Plt Count 281 (160-400) X10*3/uL MPV 9.4 (9.4-12.4) fL Immature Gran % (Auto) 0.5 H (0.0-0.4) % Neut % (Auto) 68.4 (45-73) % Lymph % (Auto) 21.1 (20-40) % [place] % (Auto) 8.3 (2-11) % Eos % (Auto) 1.1 (0-4) % Baso % (Auto) 0.6 (0-2) % Lymph # (Auto) 2.1 (1.2-4.9) X10*3/uL [place] # (Auto) 0.8 (0.1-1.2) X10*3/uL Eos # (Auto) 0.1 (0.0-0.4) X10*3/uL Baso # (Auto) 0.1 (0.0-0.2) X10*3/uL Abs Immat Gran (auto) 0.05 H (0.00-0.03) X10*3/uL Absolute Neuts (auto) 6.9 (2.0-8.3) x10*3/uL Absolute Nucleated RBC 0.000 (0.0-0.012) X10*3/uL Nucleated RBC % (auto) 0.0 (0.0-0.2) /100WBC Sodium 141 (135-145) mmol/L Potassium 4.2 D (3.3-5.1) mmol/L Chloride 102 (96-108) mmol/L Carbon Dioxide 29 (22-29) mmol/L Anion Gap 14 (12-20) BUN 9 (9-16) mg/dL Creatinine 1.08 (0.5-1.4) mg/dL Estim Creat Clear Calc 80.9 Estimated GFR > 60 Random Glucose 133 H (60-115) mg/dL Lactic Acid 1.1 (0.5-2.0) mmol/L Calcium 9.6 (8.4-10.2) mg/dL Total Bilirubin 1.0 (0.0-1.0) mg/dL AST 29 (5-37) U/L ALT 83 H (0-40) U/L Alkaline Phosphatase 73 (39-117) U/L Troponin I High Sens < 2.7 (<3.5-35.0) ng/L Total Protein 7.7 (6.5-8.0) g/dL Albumin 4.7 (3.5-5.0) g/dL Lipase 21 (8-78) U/L Urine Color Yellow Urine Appearance Clear Urine pH 5.5 (5.0-9.0) Ur Specific [place] <= 1.005 (1.005-1.025) Urine Protein Negative (Neg-Trace) mg/dL Urine Glucose (UA) Negative (Negative) mg/dL Urine Ketones 15 (Negative) mg/dL Urine Blood Negative (Negative) Urine Nitrite Negative (Negative) Ur Leukocyte Esterase Negative (Negative) Medications Administered Discontinued Medications Generic Name Dose Route Start Last Admin Trade Name Freq PRN Reason Stop Dose Admin Acetaminophen 650 mg 05/26/24 01:15 05/26/24 01:25 Acetaminophen 325 Mg Tablet PO 05/26/24 01:16 650 mg ONCE ONE Administration Ibuprofen 600 mg 05/26/24 01:15 05/26/24 01:25 Ibuprofen 600 Mg Tablet PO 05/26/24 01:16 600 mg ONCE ONE Administration Iohexol 85 ml 05/25/24 21:39 05/25/24 21:40 Iohexol 350 Mg/Ml 100 Ml Infus..Btl IV 05/25/24 21:40 85 ml ONCE ONE Administration Morphine Sulfate 2 mg 05/25/24 23:02 05/25/24 23:50 Morphine Sulfate 2 Mg/Ml Cartridge IVPUSH 05/25/24 23:03 2 mg ONCE ONE Administration Protocol Discharge Plan Discharge Clinical Impression: Abdominal pain, Hernia Patient Disposition: Home, Self-Care Additional Instructions: Please follow up with your primary care provider in the next 24-48 hours. If you develop any new or worsening symptoms please return to the emergency department Prescriptions: No Action aspirin [Aspir-81] 81 mg Tablet,Delayed Release (Dr/Ec) 81 mg PO DAILY levothyroxine 75 mcg tablet 1 tab PO DAILY amlodipine 10 mg tablet 1 tab PO DAILY albuterol sulfate 90 mcg/actuation HFA aerosol inhaler 1 puff inhalation Q3-6H PRN (Reason: Wheezing) rosuvastatin 10 mg tablet 1 tab PO BEDTIME valsartan 50 mg PO DAILY indapamide 1.25 mg tablet 1.25 mg PO QAM pantoprazole 40 mg tablet,delayed release (DR/EC) 40 mg PO DAILY Stand Alone Forms: Work/School Release Print Language: Swiss
[2024-05-26 02:24] VITALS: BP 153/84; PULSE 88; RESP 16; TEMP 36.9; O2SAT 97
== END 2024-05-26 02:25 | disposition home or self-care (01) ==
PROVIDERS: Physician Assistant; Emergency Provider Student in an Organized Health Care Education/Training Program; PCP Internal Medicine
DX: K46.9 Unspecified abdominal hernia without obstruction or gangrene (principal); I44.0 Atrioventricular block, first degree; R10.9 Unspecified abdominal pain; R94.31 Abnormal electrocardiogram [ECG] [EKG]; Z79.899 Other long term (current) drug therapy
CPT/HCPCS: 36415; 74177; 80053; 81003; 83605; 83690; 84484; 85025; 93005; 96374; 99284; 99285; J2270; Q9967

== ENCOUNTER → 2024-05-26 01:13 | Outpatient (BNV) | payer OTHER, SELFPAY | PROVIDERS: Emergency Provider Student in an Organized Health Care Education/Training Program; PCP Internal Medicine; Visit Provider Internal Medicine Cardiovascular Disease | DX: I44.0 Atrioventricular block, first degree (principal); R94.31 Abnormal electrocardiogram [ECG] [EKG]; R10.9 Unspecified abdominal pain | CPT/HCPCS: 93010 ==

== ENCOUNTER 2025-01-30 09:32 | Outpatient (REF) | payer OTHER, SELFPAY ==
--- OUTSIDE RECORDS SUMMARY | 2024-03-07 05:00 | XMS_ITS ---
Author Organization [facility] Address [address] [facility] [address] [place] [phone] Care Team Providers Care Leather Heel Breaster Name Role Phone Jose Geiger MD Primary Care Provider Reyes Cm Jr REASON FOR VISIT Patient presents today for gerd Encounters Encounter Location Date Provider Diagnosis [facility] [address] [place] [phone] 03/07/2024 Reyes Laws Jr Plan Of Treatment Next Appt Details Provider Name:Reyes garrido Jr, 01/31/2026 09:00:00 AM, [address] [place] [address], [address], [place], [address], Progress Notes * MERVAT ASHBYDOB:[birth year] (64 yo M)Acc No.[id number]:03/07/2024 Progress Notes Patient: Lowell DURHAMROSALBAFRANKEdgar MERVAT Provider: Lowell Laws MD :1960 A ge:63 Y S ex:Male Date:03/07/2024 Address:[address] [place], [place] [phone] Pcp:Jose Geiger MD Subjective: * Chief Complaints: [...] 03/07/2024 Generated for Aimee schmitt/Tj/Monica on: 0 01/30/2025 10:07 AM EDT
--- OUTSIDE RECORDS SUMMARY | 2025-01-30 10:07 | XMS_ITS | Clinical Summary ---
Author Organization [facility] Address [address] [place] [address] Care Team Providers Care Certified Surgical Technologist Name Role Phone Unknown Primary Care Provider [phone] -0000 Allergies Active Allergy Reactions Criticality Noted Date Comments Sulfa Antibiotics Unknown/Patient and Family Unable to Define Medium 09/19/2016 Medications valsartan (DIOVAN) 160 MG tablet Take 160 mg by mouth daily. 0 09/09/19 17 Active aspirin enteric coated (ECOTRIN LOW STRENGTH) 81 MG EC tablet Take 81 mg by mouth daily. Active OMEprazole (PriLOSEC) 20 MG capsule Take 20 mg by mouth every morning before breakfast. Active albuterol (PROVENTIL HFA; VENTOLIN HFA) 108 (90 Base) MCG/ACT inhaler Inhale 1 puff 4 times daily (every 6 hours) as needed for wheezing. Active Multiple Vitamin (MULTIVITAMIN) tablet Take 1 tablet by mouth daily. Active ascorbic acid (VITAMIN C) 1000 MG tablet Take 1,000 mg by mouth daily. Active atorvastatin (LIPITOR) 40 MG tabletIndications:Pure hypercholesterolemia Take 1 tablet (40 mg total) by mouth nightly. 30 tablet 3 09/23/19 17 Active metoPROLOL TARTRATE (LOPRESSOR) 25 MG tabletIndications:Essent ial hypertension Take 1 tablet (25 mg total) by mouth every 12 (twelve) hours around the clock. 60 tablet 3 09/23/19 17 Active hydrochlorothiazide (HYDRODIURIL) 12.5 MG tabletIndications:Essent ial hypertension Take 1 tablet (12.5 mg total) by mouth daily. 30 tablet 3 09/23/19 17 Active Active Problems Problem Noted Date Diagnosed Date Chest pain 09/19/2016 Social History Tobacco Use Types Packs/Day Years Used Date Smoking Tobacco: Former Sex and Gender Information Value Date Recorded Sex Assigned at Not on file Legal Sex Male 11:29 AM EDT Gender Identity Not on file Sexual Orientation Not on file Last Filed Vital Signs Vital Sign Reading Time Taken Comments Blood Pressure 122/78 09/22/2016 5:15 PM EDT Pulse 84 09/22/2016 5:15 PM EDT Temperature 36.6 C (97.9 F) 09/22/2016 5:15 PM EDT Respiratory Rate 18 09/22/2016 5:15 PM EDT Oxygen Saturation 96% 09/22/2016 5:15 PM EDT Inhaled Oxygen Concentration - - Weight 109 kg (240 lb 9.6 oz) 09/22/2016 7:00 AM EDT Height 152.4 cm (5') 09/19/2016 4:30 PM EST Body Mass Index 46.99 09/19/2016 4:30 PM EST Plan of Treatment Health Maintenance Due Date Last Done Comments Hepatitis C Virus Screening 1960 HIV Screening 10/21/1975 DTaP/Tdap/Td Vaccines (1 - Tdap) 1981 Colonoscopy 10/21/2007 Pneumococcal Vaccines 50+ (1 of 1 - PCV) 2012 Zoster (Shingles) Vaccine (1 of 2) 2012 COVID-19 Vaccine (1 - 2023-2 5 season) 2024 Influenza Vaccine 02/10/2025 RSV Vaccine 60 years and old er and Patients (1 - 1-dose 75+ series) 2037 Hepatitis B Vaccines Aged Out No long er eligible based on patient's age to complete this topic Insurance AETNA HMO/POS AETNA HMO/POS Advance Directives * Full Code (Latest Code Status on File) Date Activated Date Inactivated Comments 09/19/2016 2:06 PM 09/22/2016 8:01 PM Care Teams Certified Surgical Technologist Relationship Specialty Start Date End Date Unknown Unknow Provider Address PCP - General 09/19/16
--- OUTSIDE RECORDS SUMMARY | 2025-01-30 10:07 | XMS_ITS | Clinical Summary ---
Author Organization [address] Address [address] [place] [phone] Phone Care Team Providers Care Stroke Belt Sander Operator Name Role Phone Jose Geiger MD Primary Care Provider [phone] Allergies Active Allergy Reactions Criticality Noted Date Comments Lisinopril Cough 08/23/2018 Other Reaction(s): aggravates asthma Metoprolol 10/09/2016 Causes asthma exacerbation Sulfamethoxazole-Trimetho prim 12/24/2009 unsure Medications inulin (FIBER GUMMIES ORAL) Take by mouth. Fiber Adult Gummies 2 g Chew Tab Active polyethylene glycol (Miralax) 17 gram/dose oral powder Take by mouth. Activ e OMEGA-3 FATTY ACIDS ORAL Take by mouth. Acti ve pantoprazole (PROTONIX) 40 mg EC tablet Take 1 tablet (40 mg total) by mouth 1 (one) time each day. 01/08/20 24 Active albuterol HFA (PROAIR HFA ; PROVENTIL HFA ; VENTOLIN HFA) 90 mcg/actuation inhaler INHALE 2 PUFFS BY MOUTH INTO THE LUNGS EVERY 4 HOURS NEEDED FOR WHEEZING OR SHORTNESS OF BREATH (EMERGENCY USE ONLY). 08/21/19 24 Active MULTIVITAMIN ORAL Take by mouth. Activ e aspirin 81 mg EC tablet Take by mouth. Activ e losartan (COZAAR) 100 mg tablet Take 1 tablet (100 mg total) by mouth 1 (one) time each day. 90 each 1 08/19/19 25 025 Active d-rnbzuc-drhhn ine (NAC) 600 mg capsule Take by mouth. Acti ve UNABLE TO FIND Med Name: NMN supplement Active cholecalcifero l (VITAMIN D-3) 50 mcg (2,000 unit) tablet Take 1 tablet (2,000 Units total) by mouth 1 (one) time each day. 90 tablet 1 09/17/19 25 Active metFORMIN (GLUCOPHAGE) 500 mg tablet Take 1 tablet (500 mg total) by mouth 2 (two) times a day with meals. 180 each 1 09/17/19 25 Active amLODIPine (NORVASC) 10 mg tablet Take 1 tablet (10 mg total) by mouth 1 (one) time each day. 90 tablet 1 01/07/20 25 Active indapamide (LOZOL) 1.25 mg tablet TAKE 1 TABLET BY MOUTH DAILY 90 tablet 3 01/13/20 25 Active levothyroxine (SYNTHROID, LEVOTHROID) 75 mcg tablet TAKE 1 TABLET BY MOUTH DAILY 90 tablet 3 01/13/20 25 Active rosuvastatin (CRESTOR) 10 mg tablet TAKE 1 TABLET BY MOUTH AT BEDTIME 90 tablet 3 01/13/20 25 Active rosuvastatin (CRESTOR) 10 mg tablet Take 1 tablet (10 mg total) by mouth 1 (one) time each day. 05/11/20 24 025 Discontinued indapamide (LOZOL) 1.25 mg tablet TAKE 1 TABLET BY MOUTH DAILY 90 tablet 1 07/25/19 25 025 Discontinued levothyroxine (SYNTHROID, LEVOTHROID) 75 mcg tablet TAKE 1 TABLET BY MOUTH DAILY 90 tablet 1 07/25/19 25 025 Discontinued Active Problems Problem Noted Date Diagnosed Date Type 2 diabetes mellitus wit hout complication, without long-term current use of insulin ([facility] V24, [facility] V28) 09/16/2024 Vitamin D insufficiency 09/16/2024 Esophageal spasm 06/17/2024 COVID-19 06/22/2022 Obstructive sleep apnea 07/29/2021 Overview (06/17/2024): [facility] Home sleep test 07/24/2021; weight 245; BMI 42; AHI 53, AI 17, HI 35. 2 unclassified apneas, 144 obstructive apneas, 2 central apneas, 302 hypopneas. Average oxygen saturation 92% with oxygen harinder 84%. Obstructive sleep apnea-severe with mostly hypopneas and obstructive apneas without nocturnal hypoxemia based on 2021 home sleep test. Subclinical hypothyroidism 02/26/2021 Atypical chest pain 01/03/2020 Overview (06/17/2024): Normal coronary angiography. Reactive airway disease 06/19/2017 Lung nodule 02/27/2017 Diverticular disease 07/06/2012 GERD (gastroesophageal reflux disease) 2 IBS (irritable bowel syndrome) 07/21/2011 Morbid obesity ([facility] V24, [facility] V28) 2011 HTN (hypertension), benign 07/02/2009 Generalized anxiety disorder 07/29/2007 High cholesterol 07/29/2007 Resolved Problems Problem Noted Date Diagnosed Date Resolved Date Prediabetes 02/26/2021 09/16/2024 Overview (06/17/2024): A1c of 6.4%. Immunizations Name Administration Dates Next Due Influenza Quadravalent, MDCK , 0.5ml, preservative free (Flucelvax) 6mo and older 04/15/2023,04/15/2021,05/05/2019,03/29 Influenza trivalent, 0.5mL, preservative free (Fluarix; FluLaval; Fluzone) ages 6mo and older (Afluria) 3 years and older 03/24/2024,04/12/2017,03/25/2013,05/12,04/14/2011,05/13/2010,04/04/2009 Siriona SARS-CoV-2 COVID-19, mRNA, LNP-S, preservative free 03/01/2021,02/08/2021 Pneumococcal polysaccharide 23 valent (Pneumovax 23) 2yo and older 03/29/2018 Td Tetanus diptheria (Tdvax) 7yo and older 03/29/2018 Tdap Tetanus diptheria acell ular pertussis (Boostrix; Adacel) 7yo and older 08/17/2007 Zoster recombinant (Shingrix ) 19yo and older 11/10/2020,09/11/2020 Surgical History Surgery Date Site/Laterality Comments CARDIAC CATHETERIZATION 09/22/2016 PROCEDURE: HISTORICAL CARDIAC CATH; COMMENT: normal coronaries COLONOSCOPY 04/16/2017 PROCEDURE: HISTORICAL COLONOSCOPY; COMMENT: diverticulosis UPPER GASTROINTESTINAL ENDOSCOPY 04/16/2017 PROCEDURE: ID UPPER GI ENDOSCOPY PERFORMED; COMMENT: normal COLONOSCOPY 10/04/2010 PROCEDURE: HISTORICAL COLONOSCOPY; COMMENT: diverticulosis UPPER GASTROINTESTINAL ENDOSCOPY 10/04/2010 PROCEDURE: ID UPPER GI ENDOSCOPY PERFORMED; COMMENT: normal Medical History Medical History Date Comments Historical Medical DX 07/29/2007 DX:HTN High cholesterol 07/29/2007 DX:High cholest terence Generalized anxiety disorder 07/29/2007 DX: Generalized anxiety disorder GERD (gastroesophageal reflux disease) 2 DX:GERD (gastroesophageal reflux disease) IFG (impaired fasting glucose) 10/09/2016 D X:IFG (impaired fasting glucose) HTN (hypertension), benign 07/02/2009 DX:HT N (hypertension), benign Morbid obesity (CMS/HCC V24, CMS/HCC V28) 07/21/2011 DX:Morbid obesity (HCC) IBS (irritable bowel syndrome) 07/21/2011 D X:IBS (irritable bowel syndrome) Diverticular disease 07/06/2012 DX:Divertic ular disease Lung nodule 02/27/2017 DX:Lung nodule Abnormal CT of the abdomen 02/27/2017 DX:Ab normal CT of the abdomen Reactive airway disease 06/19/2017 DX:React tej airway disease Atypical chest pain 01/03/2020 DX:Atypical chest pain; COMMENT: Normal coronary angiography. Esophageal spasm DX:Esophageal s pasm Family History Medical History Relation Name Comments Hyperlipidemia Brother 1 Other: eye problem Brother 1 choroidor emia Prostate cancer Brother 1 Other: mental handicap Brother 2 Other: mental handicap Brother 3 Diabetes Father Heart failure Maternal Grandfather Heart failure Maternal Grandmother Cataracts Mother Thyroid disease Mother Hyperlipidemia Paternal Grandfather Blindness Neg Hx Colon cancer Neg Hx Glaucoma Neg Hx Macular degeneration Neg Hx Strabismus Neg Hx Relation Name Status Comments Brother 1 Alive Brother 2 Brother 3 Father (Age 66) dm Maternal Grandfather Maternal Grandmother Mother Alive Paternal Grandfather Social History Tobacco Use Types Packs/Day Years Used Date Smoking Tobacco: Former Cigarettes 0.5 24.2 1 - 07/13/2001 Smokeless Tobacco: Former Alcohol Use Standard Drinks/Week Comments Yes 0 (1 standard drink = 0.6 oz pur e alcohol) Sex and Gender Information Value Date Recorded Sex Assigned at Not on file Legal Sex Male 11:17 AM EST Gender Identity Not on file Sexual Orientation Not on file Obstetrics History Last Filed Vital Signs Vital Sign Reading Time Taken Comments Blood Pressure 130/76 09/13/2024 8:31 AM EST Pulse 88 09/13/2024 8:31 AM EST Temperature 37 C (98.6 F) 09/13/2024 8:31 AM EST Respiratory Rate - - Oxygen Saturation 94% 09/13/2024 8:31 AM EST Inhaled Oxygen Concentration - - Weight 112 kg (246 lb 11.2 oz) 09/13/2024 8:31 A M EST Height 162.6 cm (5' 4.02 ) 09/13/2024 8:31 AM ES T Body Mass Index 42.32 09/13/2024 8:31 AM EST Plan of Treatment Upcoming Encounters Date Type Department Care Team (Late st Contact Info) Description 03/20/2025 8:00 AM EDT Office Visit Adult Medicine [address] [phone] Jose Geiger MD [address] [place] [phone] Health Maintenance Due Date Last Done Comments Diabetes: Annual Foot Exam 1972 Diabetes: Annual Retina Eye Exam 1972 Pneumococcal Vaccine: 50+ Years (2 of 2 - PCV) 03/29/2019 03/29/2018 HIV Screening 06/21/2022 Social Influencers of Health Screening 06/21/2022 RSV Immunization Adult Patients (1 - Risk 60-74 years 1-dose series) 2022 COVID-19 Vaccine ( season) 2024 03/01/2021, 02/08/2021 Depression Screening 07/13/2024 Diabetes: Annual Urine Albumin-Creatinine Ratio (uACR) 09/13/2024 Influenza Vaccine (#1) 2025 , 04/15/2023, 05/13/2022, Additional history exists Diabetes: Blood Sugar Control Test (HGBA1C) 03/16/2025 09/13/2024, 03/21/2024, 11/18/2023, Additional history exists Diabetes: Annual GFR (Glomerular Filtration Rate) 09/13/2025 09/13/2024, 11/18/2023, 09/21/2016, Additional history exists Hypertension/CHF/CAD Annual BMP Blood Test 09/13/2025 09/13/2024, 11/18/2023, 09/21/2016, Additional history exists Colorectal Cancer Screening: Colonoscopy 04/16/2027 04/16/2017 DTaP,Tdap,and Td Vaccines (3 - Td or Tdap) 03/29/2028 03/29/2018, 08/17/2007 Cholesterol Screening (Lipid Panel) 09/13/2029 09/13/2024, 11/18/2023, 09/20/2016 Hepatitis C Screening Completed 03/05/2013 Zoster Vaccines Completed 11/10/2020, 09/11/2020 HIB Vaccines Aged Out No longer eligi ble based on patient's age to complete this topic HPV Vaccines Aged Out No longer eligi ble based on patient's age to complete this topic Hepatitis A Vaccines Aged Out No long er eligible based on patient's age to complete this topic Hepatitis B Vaccines Aged Out No long er eligible based on patient's age to complete this topic IPV Vaccines Aged Out No longer eligi ble based on patient's age to complete this topic MMR Vaccines Aged Out No longer eligi ble based on patient's age to complete this topic Meningococcal ACWY Vaccine Aged Out N o longer eligible based on patient's age to complete this topic Meningococcal B Vaccine Aged Out No l onger eligible based on patient's age to complete this topic RSV Immunization Patients Under 20 months Aged Out No longer eligible based on patient's age to complete this topic Varicella Vaccines Aged Out No longer eligible based on patient's age to complete this topic Procedures Procedure Name Priority Date/Time Associated Diagnosis Comments BASIC METABOLIC PANEL Routine 09/13/2024 9:26 AM EST HTN (hypertension), benign Type 2 diabetes mellitus without complication, without long-term current use of insulin ([facility] V24, [facility] V28) HEMOGLOBIN A1C Routine 09/13/2024 9:26 AM EST Type 2 diabetes mellitus without complication, without long-term current use of insulin (CMS/HCC V24, CMS/HCC V28) LIPID PANEL WITH REFLEX TO DIRECT LDL Routine 09/13/2024 9:26 AM EST High cholesterol Type 2 diabetes mellitus without complication, without long-term current use of insulin (CMS/HCC V24, CMS/HCC V28) COLONOSCOPY Routine 04/16/2017 HEPATITIS C SCREENING Routine 03/05/2013 from Last 3 Months or Most Recently Relevant to Health Maintenance Results * (ABNORMAL) Lipid panel with reflex to direct LDL (09/13/2024 9:26 AM EST) Cholesterol 144 0 - 200 mg/dL LAB CHEMISTRY METHOD 09/13/2024 12:48 PM [facility] Triglycerides 158(H) 0 - 150 mg/dL LAB CHEMISTRY METHOD 09/13/2024 12:48 PM [facility] HDL 53 >=40 mg/dL LAB CHEMISTRY METHOD 09/13/2024 12:48 PM [facility] LDL Calculated 59 0 - 100 mg/dL LAB CHEMISTRY METHOD 09/13/2024 12:48 PM [facility] VLDL Cholesterol Garo 31.6 mg/dL LAB CHEMISTRY METHOD 09/13/2024 12:48 PM [facility] Non HDL Chol. (LDL+VLDL) 91 <145 mg/dL LAB CHEMISTRY METHOD 09/13/2024 12:48 PM [facility] Chol/HDL Ratio 2.7 0.0 - 4.4 LAB CHEMISTRY METHOD 09/13/2024 12:48 PM [facility] Blood Venous blood specimen / Unknown Venipuncture / Unknown 09/13/2024 9:26 AM EST 09/13/2024 9:26 AM EST Mary GAYTAN LAB BLOOD ORDERABLES Fi nal Result Performing Organization Address City/[facility]/ZIP Co de Phone Number [facility] [address] [place] [address], * (ABNORMAL) Hemoglobin A1c (09/13/2024 9:26 AM EST) [facility] Hemoglobin A1C 7.9(H) <6.5 % LAB CHEMISTRY METHOD 09/13/2024 8:48 PM EST [facility] Mean Bld Glu Estim. 180 mg/dL LAB CHEMISTRY METHOD 09/13/2024 8:48 PM [facility] Blood Venous blood specimen / Unknown Venipuncture / Unknown 09/13/2024 9:26 AM EST 09/13/2024 9:26 AM EST Mary AGYTAN LAB BLOOD ORDERABLES Fi nal Result Performing Organization Address [facility]/ZIP Co de Phone Number [facility] [address] [place] [address], [place] [phone] * (ABNORMAL) Basic metabolic panel (09/13/2024 9:26 AM EST) [facility] Sodium 140 133 - 145 mmol/L LAB CHEMISTRY METHOD 09/13/2024 12:24 PM [facility] Potassium 3.9 3.5 - 5.5 mmol/L LAB CHEMISTRY METHOD 09/13/2024 12:24 PM [facility] Chloride 103 96 - 110 mmol/L LAB CHEMISTRY METHOD 09/13/2024 12:24 PM [facility] CO2 28 21 - 32 mmol/L LAB CHEMISTRY METHOD 09/13/2024 12:24 PM [facility] Anion Gap 9 3 - 11 LAB CHEMISTRY METHOD 09/13/2024 12:24 PM [facility] Glucose 164(H) 70 - 100 mg/dL LAB CHEMISTRY METHOD 09/13/2024 12:24 PM EST [facility] BUN 20 5 - 25 mg/dL LAB CHEMISTRY METHOD 09/13/2024 12:24 PM EST [facility] Creatinine 1.14 0.70 - 1.30 mg/dL LAB CHEMISTRY METHOD 09/13/2024 12:24 PM [facility] eGFR 73 >=60 mL/min/1. 73m2 LAB CHEMISTRY METHOD 09/13/2024 12:24 PM EST [facility] Comment:Calculation based on the Chronic Kidney Disease Epidemiology Collaboration (CKD-EPI) equation refit without adjustment for race. BUN/Creatinine Ratio 17.5 LAB CHEMISTRY METHOD 09/13/2024 12:24 PM [facility] Calcium 9.9 8.5 - 10.5 mg/dL LAB CHEMISTRY METHOD 09/13/2024 12:24 PM [facility] Blood Venous blood specimen / Unknown Venipuncture / Unknown 09/13/2024 9:26 AM EST 09/13/2024 9:26 AM EST Mary GAYTAN LAB BLOOD ORDERABLES Fi nal Result [facility] [address] [place] [address], * Colonoscopy (04/16/2017) Colonoscopy abstracted, no interpretation Anatomical Region Laterality Modality Other Historical Provider HEALTH MAINTENANCE Final Result * Hepatitis C Screening (03/05/2013) Hepatitis C Screening abstracted Historical Provider HEALTH MAINTENANCE Final Result from Last 3 Months or Most Recently Relevant to Health Maintenance Insurance [place] [address] Care Teams Stroke Belt Sander Operator Relationship Specialty Start Date End Date Jose Geiger MD [address] [place] [phone] PCP - General Internal Medicine 04/04/19
[2025-01-30 10:09] LABS: Hematocrit 42.1 % (42.0-52.0); Hemoglobin 14.6 g/dl (14.0-18.0); Mean Corpuscular HGB Conc 34.7 g/dl (31.0-36.0); Mean Corpuscular Hemoglobin 31.3 pg (27.0-33.0); Mean Corpuscular Volume 90.1 fL (80.0-98.0); NRBC Abs Auto 0.000 X10*3/uL (0.0-0.012); NRBC Pct Auto 0.0 /100WBC (0.0-0.2); Platelet Count 234 X10*3/uL (160-400); Red Blood Count 4.67 X10*6/uL (4.60-5.80); White Blood Count 6.1 X10*3/uL (4.8-10.8)
[2025-01-30 10:52] LABS: Alanine Aminotransferase 78 U/L (0-40); Albumin Level 4.4 g/dL (3.5-5.0); Alkaline Phosphatase 53 U/L (39-117); Aspartate Amino Transferase 30 U/L (5-37); Blood Urea Nitrogen 16 mg/dL (9-16); Estimated Glomerular Filt Rate > 60; Total Protein 6.6 g/dL (6.5-8.0)
== END 2025-01-30 09:33 | disposition home or self-care (01) ==
LOC: HO.LAB 09:32
PROVIDERS: PCP Internal Medicine; Visit Provider Internal Medicine Gastroenterology
DX: K76.0 Fatty (change of) liver, not elsewhere classified (principal)
CPT/HCPCS: 36415; 80076; 82565; 84520; 85027

== ENCOUNTER 2025-03-09 06:16 | Outpatient (REF) | payer OTHER, SELFPAY ==
--- OUTSIDE RECORDS SUMMARY | 2024-03-07 05:00 | XMS_ITS ---
Author Organization [facility] Address [address] [facility] [address] [place] [phone] Care Team Providers Care Acid Dumper Name Role Phone Jose Geiger MD Primary Care Provider Reyes Cm Jr REASON FOR VISIT Patient presents today for gerd Encounters Encounter Location Date Provider Diagnosis [facility] [address] [place] [phone] 03/07/2024 Reyes Laws Jr Plan Of Treatment Next Appt Details Provider Name:Reyes garrido Jr, 01/31/2026 09:00:00 AM, [address] [place] [address], [address], [place], [phone], Progress Notes * MERVAT ASHBYDOB:[birth year] (64 yo M)Acc No.[id number]:03/07/2024 Progress Notes Patient: Lowell DURHAMROSALBAFRANKEgdar MERVAT Provider: Lowell Laws MD :1960 A ge:63 Y S ex:Male Date:03/07/2024 Address:[address] [place], [place] [phone] Pcp:Jose Geiger MD Subjective: * Chief Complaints: * 1 . Patient presents today for gerd. * Medical History: Objective: * Vitals: Assessment: Plan: * Treatment: * * The named appointment provid er may or may not be the originator of this progress note, and it is not deemed complete until electronically signed by the appointment provider. Sign off status: Pending * Provider: Lowell Laws MD Date: 0 03/07/2024 Generated for Aimee schmitt/Tj/Monica on: 0 03/09/2025 06:20 AM EDT
--- NOTE | ~2025-03-09 | CT_ITS ---
EXAMINATION: CT ABDOMEN AND PELVIS WITH CONTRAST CLINICAL INFORMATION: Elevated liver function tests/enzymes. Fatty liver.. COMPARISON: May 25, 2024. TECHNIQUE: Multidetector volumetric images were obtained from the superior aspect of the liver through the pubic symphysis following administration 85 mL of Omnipaque 350 intravenous contrast. Sagittal and coronal reformatted images were obtained on the technologist's workstation. Oral contrast: Yes This CT examination was performed using dose optimization techniques as appropriate, variously including the following: *Automated exposure control *Adjustment of mA and/or kV according to patient size (this includes techniques or standardized protocols for targeted exams where dose is matched to indication/reason for exam; i.e. extremities or head) *Use of iterative reconstruction technique. DLP: 837 mGy centimeter. FINDINGS: Patient's large body habitus/obesity. LUNG BASES: 1.5 mm noncalcified pulmonary nodule, right middle lung lobe. Linear attenuation in the lingula and right middle lung lobe. LIVER, GALLBLADDER, AND BILIARY TREE: Liver measures 20 cm. Decreased enhancement pattern throughout its parenchyma. No focal mass. Main portal veins, hepatic veins and intrahepatic portion of the IVC are patent. No focal mass. Status post cholecystectomy, likely laparoscopic. Common bile duct measures 6 mm maximum diameter. PANCREAS: No focal mass. No peripancreatic fluid collection. No main pancreatic ductal dilatation. SPLEEN: 11 cm. No focal mass. ADRENAL GLANDS: No nodular lesions. KIDNEYS AND URETERS: No hydronephrosis. No gross nephrolithiasis. No enhancing renal mass. Cortical defect in the posterior midportion right kidney. BLADDER: Fluid-filled. GASTROINTESTINAL TRACT: Abundant stool throughout the large intestine. Numerous diverticula in the left hemicolon. Appendix is normal. No intestinal obstruction pattern. No gross intestinal wall thickening. No pneumatosis intestinalis. No ascites. No pneumoperitoneum. No peripheral enhancing fluid collection, peritoneal cavity. ABDOMINAL WALL: Diastases abdominal rectus muscles in the infraumbilical region with small fat-containing umbilical and periumbilical hernia. Fat-containing inguinal hernias pronounced/larger on the left side. LYMPH NODES: Nonspecific mildly prominent, mesenteric and retroperitoneum. VASCULAR: No aneurysm or dissection, abdominal aorta. Calcified plaques throughout the thoracic and abdominal aorta, the mesenteric arteries, the splenic artery, iliac arteries and femoral arteries. PELVIC VISCERA: Not enlarged. OSSEOUS STRUCTURES: Multilevel thoracolumbar spondylosis pronounced at L5-S1 and L4-5 levels likely resulting in central spinal canal and neuroforamina stenosis at L4-5. Grade 1 anterolisthesis L4-5. Sclerosis in the sacroiliac joints. No lytic or blastic lesions. CT/CT abdomen pelvis w IV con IMPRESSION: Hepatomegaly and steatosis. Diverticular disease. Fat-containing bilateral inguinal hernias and umbilical/periumbilical hernia. Spondylosis L4-5 resulting in grade 1 anterolisthesis. Atherosclerosis disease. Fleischner guidelines were followed. Electronically signed by: Jose E Burns MD 03/09/2025 09:02 AM EDT
--- OUTSIDE RECORDS SUMMARY | 2025-03-09 06:20 | XMS_ITS | Clinical Summary ---
Author Organization [facility] Address [address] [place] [address] Care Team Providers Care Client Technical Specialist Name Role Phone Unknown Primary Care Provider [...] 2:06 PM 09/22/2016 8:01 PM Care Teams Client Technical Specialist Relationship Specialty Start Date End Date Unknown Unknow Provider Address PCP - General 09/19/16
--- OUTSIDE RECORDS SUMMARY | 2025-03-09 06:20 | XMS_ITS | Clinical Summary ---
Author Organization [address] Address [address] [place] [phone] Phone Care Team Providers Care Engine Lathe Set Up Operator Name Role Phone Jose Geiger MD Primary Care Provider [phone] Allergies Active Allergy Reactions Criticality Noted Date [...] (one) time each day. 01/08/20 24 Active MULTIVITAMIN ORAL Take by mouth. Activ e aspirin 81 mg EC tablet Take by mouth. Activ e z-bjmxub-vklpp ine (NAC) 600 mg capsule Take by [...] BEDTIME 90 tablet 3 01/13/20 25 Active albuterol HFA (PROAIR HFA ; PROVENTIL HFA ; VENTOLIN HFA) 90 mcg/actuation inhaler INHALE 2 INHALATIONS BY MOUTH EVERY 4 HOURS NEEDED FOR WHEEZING OR SHORTNESS OF BREATH (EMERGENCY USE ONLY). 25.5 g 02/14/20 25 Active losartan (COZAAR) 100 mg tablet TAKE 1 TABLET BY MOUTH ONCE DAILY 90 tablet 02/24/20 25 Active albuterol HFA (PROAIR HFA ; PROVENTIL HFA ; VENTOLIN HFA) 90 mcg/actuation inhaler INHALE 2 PUFFS BY MOUTH INTO THE LUNGS EVERY 4 HOURS NEEDED FOR WHEEZING OR SHORTNESS OF BREATH (EMERGENCY USE ONLY). 08/21/19 24 025 Discontinued losartan (COZAAR) 100 mg tablet Take 1 tablet (100 mg total) by mouth 1 (one) time each day. 90 each 1 08/19/19 25 025 Discontinued Active Problems Problem Noted Date Diagnosed Date Type 2 diabetes mellitus wit hout complication, without long-term current use of insulin ([facility] V24, [facility] V28) 09/16/2024 Vitamin D insufficiency 09/16/2024 Esophageal spasm 06/17/2024 COVID-19 06/22/2022 Obstructive sleep apnea 07/29/2021 Overview (06/17/2024): [facility] Home sleep test 07/24/2021; weight 245; BMI [...] IBS (irritable bowel syndrome) 07/21/2011 Morbid obesity ([facility] V24, [facility] V28) 2011 HTN (hypertension), benign 07/02/2009 Generalized [...] older (Afluria) 3 years and older 03/24/2024,04/12/2017,03/25/2013,05/12,04/14/2011,05/13/2010,04/04/2009 Pfizer SARS-CoV-2 COVID-19, mRNA, LNP-S, preservative free 03/01/2021,02/08/2021 [...] COMMENT: diverticulosis UPPER GASTROINTESTINAL ENDOSCOPY 04/16/2017 PROCEDURE: DC UPPER GI ENDOSCOPY PERFORMED; COMMENT: normal COLONOSCOPY 10/04/2010 PROCEDURE: HISTORICAL COLONOSCOPY; COMMENT: diverticulosis UPPER GASTROINTESTINAL ENDOSCOPY 10/04/2010 PROCEDURE: DC UPPER GI ENDOSCOPY PERFORMED; COMMENT: normal Medical [...] 8:00 AM EDT Office Visit Adult Medicine [address] [phone] Jose Geiger MD [address] [place] [phone] Health Maintenance Due Date Last Done Comments [...] complication, without long-term current use of insulin ([facility] V24, [facility] V28) HEMOGLOBIN A1C Routine 09/13/2024 9:26 AM EST Type 2 diabetes mellitus without complication, without long-term current use of insulin ([facility] V24, CMS/HCC V28) LIPID PANEL WITH REFLEX [...] mg/dL LAB CHEMISTRY METHOD 09/13/2024 12:[address] [facility] Triglycerides 158(H) 0 - 150 mg/dL LAB CHEMISTRY METHOD 09/13/2024 12:[address] [facility] HDL 53 >=40 mg/dL LAB CHEMISTRY METHOD 09/13/2024 12:[address] [facility] LDL Calculated 59 0 - 100 mg/dL LAB CHEMISTRY METHOD 09/13/2024 12:[address] [facility] VLDL Cholesterol Garo 31.6 mg/dL LAB CHEMISTRY METHOD 09/13/2024 12:[address] [facility] Non HDL Chol. (LDL+VLDL) 91 <145 mg/dL LAB CHEMISTRY METHOD 09/13/2024 12:[address] [facility] Chol/HDL Ratio 2.7 0.0 - 4.4 LAB CHEMISTRY METHOD 09/13/2024 12:48 PM [facility] Blood Venous blood specimen / Unknown Venipuncture / Unknown 09/13/2024 9:26 AM EST 09/13/2024 9:26 AM EST us Mary GAYTAN LAB BLOOD ORDERABLES Fi nal Result [facility] [address] [place] [address], * (ABNORMAL) Hemoglobin A1c (09/13/2024 9:26 AM EST) [facility] Hemoglobin A1C 7.9(H) <6.5 % LAB CHEMISTRY METHOD 09/13/2024 8:[address] [facility] Mean Bld Glu Estim. 180 mg/dL LAB CHEMISTRY METHOD 09/13/2024 8:48 PM [facility] Blood Venous blood specimen / Unknown Venipuncture / Unknown 09/13/2024 9:26 AM EST 09/13/2024 9:26 AM EST Mary GAYTAN LAB BLOOD ORDERABLES Fi nal Result [facility] [address] [place] [address], * (ABNORMAL) Basic metabolic panel (09/13/2024 9:26 AM EST) [facility] Sodium 140 133 - 145 mmol/L LAB CHEMISTRY METHOD 09/13/2024 12:24 PM [facility] Potassium 3.9 3.5 - 5.5 mmol/L LAB CHEMISTRY METHOD 09/13/2024 12:24 PM [facility] Chloride 103 96 - 110 mmol/L LAB CHEMISTRY METHOD 09/13/2024 12:24 PM [facility] CO2 28 21 - 32 mmol/L LAB CHEMISTRY METHOD 09/13/2024 12:24 PM [facility] Anion Gap 9 3 - 11 LAB CHEMISTRY METHOD 09/13/2024 12:24 PM [facility] Glucose 164(H) 70 - 100 mg/dL LAB CHEMISTRY METHOD 09/13/2024 12:24 PM [facility] BUN 20 5 - 25 mg/dL LAB CHEMISTRY METHOD 09/13/2024 12:[address] [facility] Creatinine 1.14 0.70 - 1.30 mg/dL LAB CHEMISTRY METHOD 09/13/2024 12:[address] [facility] eGFR 73 >=60 mL/min/1. 73m2 LAB CHEMISTRY METHOD 09/13/2024 12:[address] [facility] Comment:Calculation based on the Chronic Kidney Disease Epidemiology Collaboration (CKD-EPI) equation refit without adjustment for race. BUN/Creatinine Ratio 17.5 LAB CHEMISTRY METHOD 09/13/2024 12:24 PM [facility] Calcium 9.9 8.5 - 10.5 mg/dL LAB CHEMISTRY METHOD 09/13/2024 12:24 PM [facility] Blood Venous blood specimen / Unknown Venipuncture / Unknown 09/13/2024 9:26 AM EST 09/13/2024 9:26 AM EST Mary GAYTAN LAB BLOOD ORDERABLES Fi nal Result [facility] [address] [place] [address], * Colonoscopy (04/16/2017) Colonoscopy abstracted, no interpretation Anatomical Region Laterality Modality Other Historical Provider HEALTH MAINTENANCE Final Result * Hepatitis C Screening (03/05/2013) Hepatitis C Screening abstracted Historical Provider HEALTH MAINTENANCE Final Result from Last 3 Months or Most Recently Relevant to Health Maintenance Insurance Care Teams Engine Lathe Set Up Operator Relationship Specialty Start Date End Date Jose Geiger MD [address] [place] [phone] PCP - General Internal Medicine 04/04/19
--- OUTSIDE RECORDS SUMMARY | 2025-03-09 06:21 | XMS_ITS | Patient Health Record ---
Author Organization [facility] Address [address] [place] [address] Care Team Providers Care Feed Management Advisor Name Role Phone Jose Geiger MD Primary Care Provider Reyes Cm Jr Unavailable [phone] Allergies Allergen (clinical drug ingredient) Drug/Non Drug Allergy documented on EMR Reaction Allergy Type Onset Date Status lisinopril Lisinopril Unknown Drug Allergy Activ e Substance with sulfonamide structure and antibacterial mechanism of action (substance) sulfa (uncoded) Unknown Allergy Active sulfamethoxazole / trimethoprim Bactrim (uncoded) Unknown Allergy Active Results Component Value Reference Range Notes Complete Blood Count no Diff Reviewed date:04/14/2024 09:37:17 AM Interpretation: Performing Lab:[facility], [address] [place] [phone] Notes/Report: White Blood Count 8.8 4.8-10.8 X10*3/uL Red Blood Count 5.22 4.60-5.80 X10*6/uL Hemoglobin 16.2 14.0-18.0 g/dl Hematocrit 47.3 42.0-52.0 % Mean Corpuscular Volume 90.6 80.0-98.0 fL Mean Corpuscular Hemoglobin 31.0 27.0-33.0 pg Mean Corpuscular HGB Conc 34.2 31.0-36.0 g/dl Red Cell Distribution Width 11.9 11.0-16.0 % Platelet Count 275 160-400 X10*3/uL Mean Platelet Volume 10.1 9.4-12.4 fL NRBC Pct Auto 0.0 0.0-0.2 /100WBC NRBC Abs Auto 0.000 0.0-0.012 X10*3/uL Liver Panel Reviewed date:04/14/2024 09:37:09 AM Interpretation: Performing Lab:[address] [phone] Notes/Report: Bilirubin Total 0.5 0.0-1.0 mg/dL Bilirubin Direct 0.2 0.0-0.5 mg/dL Aspartate Amino Transferase 31 5-37 U/L Alanine Aminotransferase 88 0-40 U/L Total Protein 7.2 6.5-8.0 g/dL Albumin Level 4.5 3.5-5.0 g/dL Alkaline Phosphatase 63 39-117 U/L Lipase Reviewed date:04/14/2024 09:36:22 AM Interpretation: Performing Lab:[facility], [address] [place] [phone] Notes/Report: Lipase 44 8-78 U/L US abdomen complete Reviewed date:04/21/2024 10:57:03 AM Interpretation: Performing Lab: Notes/Report: [address] [address] Ultrasound Report Signed Patient: Mervat Ashby MR#: [id number] : 1960 Acct:[id number] Age/Sex: 63 / M ADM Date: 04/18/24 Loc: .US Attending Dr: Reyes Laws MD Ordering Physician: Reyes Laws MD Date of Service: 04/18/24 Procedure(s): US abdomen complete Accession Number(s): [id number] cc: Reyes Laws MD; Jose Geiger III, MD EXAMINATION: US ABDOMEN COMPLETE CLINICAL INFORMATION: Generalized abdominal pain. COMPARISON: CT abdomen and pelvis 12/11/2023. Limited abdominal ultrasound 08/20/2023. CT abdomen and pelvis 09/09/2017. TECHNIQUE: Real-time imaging of the abdominal viscera. Technically difficult study secondary to body habitus. FINDINGS: PANCREAS: Visualized portions of the pancreatic head and body are unremarkable, the tail is obscured by overlying bowel gas. ABDOMINAL AORTA: Mid abdominal aorta is normal in size, the proximal and distal aorta are not visualized due to overlying bowel gas. INFERIOR VENA CAVA: Visualized portions are normal. LIVER: The liver is normal in size. The liver contour is normal. There is diffusely increased liver parenchymal echogenicity. No focal hepatic lesion. There is no intrahepatic biliary duct dilatation seen. GALLBLADDER: Surgically absent. COMMON BILE DUCT: Normal in caliber measuring 0.8 cm in diameter. RIGHT KIDNEY: No hydronephrosis. No renal calculi or focal parenchymal lesions. The kidney measures 11.2 cm in maximum dimension. LEFT KIDNEY: No hydronephrosis. No renal calculi or focal parenchymal lesions. The kidney measures 13.3 cm in maximum dimension. SPLEEN: The spleen measures 11.2 cm in maximum dimension. FREE FLUID: None. US/US abdomen complete IMPRESSION: 1. Diffusely increased liver parenchymal echogenicity suggests underlying fatty infiltration. No focal hepatic lesions. 2. Status post cholecystectomy. Electronically signed by: Trevor Lemus MD 04/18/2024 11:18 AM EDT Dictated By: Trevor Lemus MD Signed By: <Electronically signed by Trevor Lemus MD in OV> 04/18/24 1118 DD/ 0840 TD/TT: 04/18/24 0852 Crane Rigger: ALISSA Complete Blood Count no Diff Reviewed date:02/02/2025 09:26:11 AM Interpretation: Performing Lab:[facility], [address] [place] [phone] Notes/Report: White Blood Count 6.1 4.8-10.8 X10*3/uL Red Blood Count 4.67 4.60-5.80 X10*6/uL Hemoglobin 14.6 14.0-18.0 g/dl Hematocrit 42.1 42.0-52.0 % Mean Corpuscular Volume 90.1 80.0-98.0 fL Mean Corpuscular Hemoglobin 31.3 27.0-33.0 pg Mean Corpuscular HGB Conc 34.7 31.0-36.0 g/dl Red Cell Distribution Width 12.1 11.0-16.0 % Platelet Count 234 160-400 X10*3/uL Mean Platelet Volume 9.8 9.4-12.4 fL NRBC Pct Auto 0.0 0.0-0.2 /100WBC NRBC Abs Auto 0.000 0.0-0.012 X10*3/uL Liver Panel Reviewed date:02/02/2025 09:26:02 AM Interpretation: Performing Lab:[address] [phone] Notes/Report: Bilirubin Total 0.7 0.0-1.0 mg/dL Bilirubin Direct 0.3 0.0-0.5 mg/dL Aspartate Amino Transferase 30 5-37 U/L Alanine Aminotransferase 78 0-40 U/L Total Protein 6.6 6.5-8.0 g/dL Albumin Level 4.4 3.5-5.0 g/dL Alkaline Phosphatase 53 39-117 U/L Blood Urea Nitrogen Reviewed date:02/02/2025 09:24:54 AM Interpretation: Performing Lab:[address] [phone] Notes/Report: Blood Urea Nitrogen 16 9-16 mg/dL Creatinine Reviewed date:02/02/2025 09:24:44 AM Interpretation: Performing Lab:[address] [phone] Notes/Report: Creatinine 0.81 0.5-1.4 mg/dL Estimated Glomerular Filt Rate > 60 Chronic Kidney Disease: Estimated GFR < 60 mL/min/1.73m2 Severe Kidney Disease: Estimated GFR < 15 mL/min/1.73m2 Reason For Referral No Information Medications Medication SIG (Take, Route, Frequency, Duration) Notes Start Date End Date Status Dicyclomine HCl 20 MG TAKE 1 TABLET BY M OUTH EVERY 6 HOURS NEEDED FOR ABDOMINAL PAIN/CRAMPS/DISCOMFORT for 90 Active Valsartan Active Multi Vitamin/Minerals Active Probiotic Active Fiber Active Albuterol Sulfate HFA Active Pantoprazole Sodium 20 MG 1 tablet 1/2 t o 1 hour before morning meal Orally Once a day for 90 days 01/30/2025 Active metFORMIN HCl 1000 MG 1 tablet with a me al Orally Once a day Active Indapamide 1.25 MG Oral for 90 Active Lisinopril 2.5 MG 1 tablet Orally Once a day for 30 day(s) Active amLODIPine Besylate 10 MG Oral for 90 Active NAC Active Losartan Potassium 100 MG Oral for 90 Active Pendleton 3 Active Levothyroxine Sodium 75 MCG Oral for 90 Active Pantoprazole Sodium 40 MG 1 tablet Orall y Once a day for 30 day(s) 04/13/2013 Active Rosuvastatin Calcium 10 MG Oral for 90 Active Aspir-81 81mg Active Immunizations Vaccine Route Administration Date Status Comme nts Influenza Unknown 05/05/2023 Administered Influenza Unknown 05/03/2024 Administered Influenza Unknown 05/22/2022 Refused Problems Problem Type SNOMED Code ICD Code Onset Dates Problem Status W/U Status Risk Notes Problem 955891336 Colon cancer screening (Z12.11) Active confirmed Problem Esophageal reflux (549020540) Esophageal reflux (K21.9) Active confirmed Problem 72867778 Rectal bleeding (K62.5) Active confirmed Problem 268049047 Generalized abdominal pain (R10.84) Active confirmed Problem Elevated liver enzymes level (651088633) Elevated LFTs (R79.89) Active confirmed Problem 685686534 Gastroesophageal reflux disease without esophagitis (K21.9) Active confirmed Problem 102528565 Fatty liver (K76.0) Active confirmed Problem 952617070 Abnormal CT scan , colon (R93.3) Active confirmed Problem 71032071 Diarrhea, unspecified type (R19.7) Active confirmed Problem 060660369 Left sided abdom inal pain (R10.9) Active confirmed Problem 33878463 Irritable bowel syndrome with constipation and diarrhea (K58.2) Active confirmed Vital Signs Temperature 98.7 degrees Fahrenheit 01/30/2025 Blood pressure diastolic 01 mm Hg 01/30/2025 Height 64 in 01/30/2025 Blood pressure systolic 001 mm Hg 01/30/2025 Weight 246.6 lbs 01/30/2025 BMI 42.32 kg/m2 01/30/2025 Encounters Encounter Location Date Provider Diagnosis [facility] [address] [place] [address] 04/11/2024 Reyes Laws Jr Generalized abdominal pain R10.84 [facility] [address] [place] [address] 01/30/2025 Reyes Laws Jr Fatty liver K76.0 ; Elevated LFTs R79.89 and Esophageal reflux K21.9 [facility] [address] [place] [address] 04/06/2024 [facility] [address] [place] [address] 04/14/2024 Reyes Laws Jr [facility] [address] [place] [address] 04/21/2024 Reyes Laws Jr [facility] [address] [place] [address] 02/02/2025 Reyes Laws Jr Assessments Encounter Date Diagnosis (ICD Code) Assessment Notes Treatment Notes Treatment Clinical Notes Section Notes 04/11/2024 Generalized abdominal pain (ICD-10 - R10.84) Postsurgical pain treatment in adults material was printed We discussed his symptoms today. He will have further evaluation with laboratory studies and ultrasound imaging. He will continue dicyclomine for cramping, pantoprazole for her reflux, and use simethicone for gas. Followup will be in one year. 01/30/2025 Elevated LFTs (ICD-10 - R79.89) Currently, he is doing well. He will have CT scanning for follow-up of his fatty liver and elevated liver function test. We discussed gastroesophageal reflux disease today in detail. We discussed diet, lifestyle modifications, and weight management. He will decrease pantoprazole to 20 mg daily. New prescription is sent to his pharmacy. Follow-up will be in 12 months, sooner if necessary. Today's visit was 30 minutes. 01/30/2025 Fatty liver (ICD-10 - K76.0) Currently, he is doing well. He will have CT scanning for follow-up of his fatty liver and elevated liver function test. We discussed gastroesophageal reflux disease today in detail. We discussed diet, lifestyle modifications, and weight management. He will decrease pantoprazole to 20 mg daily. New prescription is sent to his pharmacy. Follow-up will be in 12 months, sooner if necessary. Today's visit was 30 minutes. 01/30/2025 Esophageal reflux (ICD-10 - K21.9) Currently, he is doing well. He will have CT scanning for follow-up of his fatty liver and elevated liver function test. We discussed gastroesophageal reflux disease today in detail. We discussed diet, lifestyle modifications, and weight management. He will decrease pantoprazole to 20 mg daily. New prescription is sent to his pharmacy. Follow-up will be in 12 months, sooner if necessary. Today's visit was 30 minutes. Plan Of Treatment Pending Test Test Name Order Date BUN 01/30/2025 CREATININE 01/30/2025 LIVER PROFILE 04/11/2024 LIVER PROFILE 01/30/2025 LIPASE 04/11/2024 CBC w/o DIFF 01/30/2025 CBC w/o DIFF 04/11/2024 OVA & PARASITES (O&P) 01/29/2024 PANCREATIC ELASTASE 01/29/2024 FECAL FAT QUAL 01/29/2024 CT ABD & PELVIS WITH CONTRAST 01/30/2025 XR GI SERIES 02/13/2012 US ABD 04/11/2024 US ABD 05/22/2022 C DIFFICILE RFLX PCR 01/29/2024 Future Test Test Name Order Date UPPER GI ENDOSCOPY 03/11/2017 COLONOSCOPY 03/11/2017 UPPER GI ENDOSCOPY 05/22/2022 COLONOSCOPY 05/22/2022 Next Appt Details Provider Name:Reyes garrido Jr, 01/31/2026 09:00:00 AM, [address] [facility], [address], [place], [address], Insurance Providers Payer Name Payer Address Payer Phone Subscriber Number Group Number Insured Name Patient Relationship to Insured Coverage Start Date Coverage End Date [facility] [address] [place] [phone] [id number] MERVAT CANALES Self - patient is the insured Medical (General) History Medical History History ICD Code Colonoscopy 07/04, lymphoid polyp, ten-y ear followup Gastroesophageal reflux disease, EGD , no HP/BE Diverticulitis Hypertension Hyperlipidemia Asthma Cardiac catheterization at [facility], no significant disease per patient hypothyroidism type II diabetes Surgical History Surgery Date(Month/Year) gall bladder removed 12/03 Hospitalization History Reason Date(Month/Year) twice in ER, for stomach pain.
--- OUTSIDE RECORDS SUMMARY | 2025-03-09 06:21 | XMS_ITS ---
Author Name [facility] Organization Unknown Care Team Organization Name Specialty Phone Email Start Date End Da te [facility] 05/20/2022 4
[2025-03-09] MEDS: Barium Sulfate Oral (Berry) 450 ML ORAL.SUSP 900 ML PO (08:45)
[2025-03-09] MEDS: iohexoL 350 MG/ML 100 ML INFUS..BTL IV (08:46)
[2025-03-09 09:07] LABS: Creatinine POC 1.0 mg/dL (0.5-1.4); GFR POC > 60
== END 2025-03-09 06:17 | disposition home or self-care (01) ==
LOC: HO.CT 06:16
PROVIDERS: PCP Internal Medicine; Visit Provider Internal Medicine Gastroenterology
DX: K76.0 Fatty (change of) liver, not elsewhere classified (principal); R79.89 Other specified abnormal findings of blood chemistry
CPT/HCPCS: 74177; 82565; Q9967

== ENCOUNTER → 2025-03-09 08:00 | Outpatient (BNV) | payer OTHER, SELFPAY | PROVIDERS: PCP Internal Medicine; Visit Provider Radiology Diagnostic Radiology | DX: R74.01 Elevation of levels of liver transaminase levels (principal); K57.90 Diverticulosis of intestine, part unspecified, without perforation or abscess without bleeding; K40.90 Unilateral inguinal hernia, without obstruction or gangrene, not specified as recurrent | CPT/HCPCS: 74177 ==

== ENCOUNTER 2025-04-19 12:04 | Outpatient (REF) | payer OTHER, SELFPAY ==
[2025-04-19 12:42] LABS: Hematocrit 47.9 % (42.0-52.0); Hemoglobin 16.2 g/dl (14.0-18.0); Mean Corpuscular HGB Conc 33.8 g/dl (31.0-36.0); Mean Corpuscular Hemoglobin 30.7 pg (27.0-33.0); Mean Corpuscular Volume 90.9 fL (80.0-98.0); NRBC Abs Auto 0.000 X10*3/uL (0.0-0.012); NRBC Pct Auto 0.0 /100WBC (0.0-0.2); Platelet Count 279 X10*3/uL (160-400); Red Blood Count 5.27 X10*6/uL (4.60-5.80); White Blood Count 9.0 X10*3/uL (4.8-10.8)
[2025-04-19 14:41] LABS: Alanine Aminotransferase 104 U/L (0-40); Albumin Level 5.1 g/dL (3.5-5.0); Alkaline Phosphatase 59 U/L (39-117); Aspartate Amino Transferase 43 U/L (5-37); Lipase 30 U/L (8-78); Total Protein 7.5 g/dL (6.5-8.0)
== END 2025-04-19 12:05 | disposition home or self-care (01) ==
LOC: HO.LAB 12:04
PROVIDERS: PCP Internal Medicine; Visit Provider Internal Medicine Gastroenterology
DX: R10.9 Unspecified abdominal pain (principal)
CPT/HCPCS: 36415; 80076; 83690; 85027

== ENCOUNTER 2025-06-27 16:38 | Emergency (ER) | payer OTHER, SELFPAY ==
--- OUTSIDE RECORDS SUMMARY | 2024-03-07 04:00 | XMS_ITS ---
Author Organization [facility] Address [address] [facility] [address] [place] [phone] Care Team Providers Care Quartz Miner Blasting Name Role Phone Jose Geiger MD Primary Care Provider Reyes Cm Jr [phone] REASON FOR VISIT Patient presents today for gerd Encounters Encounter Location Date Provider Diagnosis [facility] [address] [place] [phone] 03/07/2024 Reyes Laws Jr Plan Of Treatment Next Appt Details Provider Name:Reyes garrido Jr, 01/31/2026 09:00:00 AM, [address] [place] [address], [address], [place], [phone], Progress Notes * MERVAT ASHBYDOB:[birth year] (64 yo M)Acc No.[id number]:03/07/2024 Progress Notes Patient: Lowell APPIAHEdgar MERVAT Provider: Lowell Laws MD :1960 A ge:63 Y S ex:Male Date:03/07/2024 Address:[address] [place], [place] [id number] Pcp:Jose Geiger MD Subjective: * Chief Complaints: * P atient presents today for gerd * The named appointment provid er may or may not be the originator of this progress note, and it is not deemed complete until electronically signed by the appointment provider. Sign off status: Pending * Provider: Lowell Laws MD Date: 0 03/07/2024 Generated for Aimee schmitt/Tj/Monica on: 1 08/28/2024 09:30 PM EST
--- OUTSIDE RECORDS SUMMARY | 2025-04-19 06:20 | XMS_ITS ---
Author Organization [facility] Address [address] [place] [address] Care Team Providers Care Steam Pressure Chamber Operator Name Role Phone Jose Geiger MD Primary Care Provider Reyes Cm Jr Unavailable Allergies Allergen (clinical drug ingredient) Drug/Non Drug Allergy documented on EMR Reaction Allergy Type Onset Date Status sulfamethoxazole / trimethoprim Bactrim (uncoded) Unknown Allergy Active Substance with sulfonamide structure and antibacterial mechanism of action (substance) sulfa (uncoded) Unknown Allergy Active lisinopril Lisinopril Unknown Drug Allergy Activ e REASON FOR VISIT patient presents today for burping, not feeling well. Medications Medication SIG (Take, Route, Frequency, Duration) Notes Start Date End Date Status Losartan Potassium 100 MG Tablet Oral; Duration: 90 Active Levothyroxine Sodium 75 MCG Tablet Oral; Duration: 90 Active Rosuvastatin Calcium 10 MG Tablet Oral; Duration: 90 Active Pantoprazole Sodium 20 MG Tablet Delayed Release 1 tablet 1/2 to 1 hour before morning meal Orally Once a day; Duration: 90 days 01/30/2025 Not-Taking/PRN Dicyclomine HCl 20 MG Tablet TAKE 1 TABLET BY MOUTH EVERY 6 HOURFOR ABDOMINAL PAIN/CRAMPS/DISCOMFO RT; Duration: 90 days Active Probiotic Active Albuterol Sulfate HFA Active Indapamide 1.25 MG Tablet Oral; Duration: 90 Active amLODIPine Besylate 10 MG Tablet Oral; Duration: 90 Active Pantoprazole Sodium 40 MG Tablet Delayed Release 1 tablet Orally Once a day; Duration: 30 day(s) 04/13/2013 Not-Taking/PRN Aspir-81 81mg Active Multi Vitamin/Minerals Active Social History Social History Additional Details Category Social Info Options Details Miscellaneous: Marital status: single 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 [address] [place] [address] 04/19/2025 Reyes Laws Jr Abdominal pain R10.9 Assessments Encounter Date Diagnosis (ICD Code) Assessment Notes Treatment Notes Treatment Clinical Notes Section Notes 04/19/2025 Abdominal pain (ICD-10 - R10.9) Plan Of Treatment Pending Test Test Name Order Date LIVER PROFILE 04/19/2025 LIPASE 04/19/2025 CBC w/o DIFF 04/19/2025 Next Appt Details Provider Name:Reyes garrido Jr, 01/31/2026 09:00:00 AM, [address], [address], [place], [address], Progress Notes * MERVAT ASHBYDOB:[birth year] (64 yo M)Acc No.[id number]:04/19/2025 Progress Notes Patient: MERVAT DAWKINS Provider: Lowell Laws MD :1960 A ge:64 Y S ex:Male Date:04/19/2025 Address:[address] [place], [place] [id number] Pcp:Jose Geiger MD Subjective: * Chief Complaints: * P atient presents today for burping, not feeling well. * Medical History: Colonoscopy 07/04, lymphoid polyp, ten-year followup Gastroesophageal reflux disease, EGD 07/03, no HP/BE Diverticulitis Hypertension Hyperlipidemia Asthma Cardiac catheterization at [facility], no significant disease per patient Hypothyroidism type II diabetes * Surgical History: gall bladder removed 12/03 Surgical History verified. * Hospitalization/Major Diagno stic Procedure: twice in ER, for stomach pain. Hospitalization Verified. * Family History: F ather: . M other: alive, benign polyps, diagnosed with Colon polyps. S iblings: alive, brother with peptic ulcer disease. F amily History Verified.. denies fam. hx of colon CA. No family history of liver cancer. * Social History: T obacco Use: T obacco Use/Smoking A re you a: former smoker , How long has it been since you last smoked?: > 10 years. D rugs/Alcohol: A lcohol Screen P oints: 2, Interpretation: Negative. M iscellaneous: M arital status: single. 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 Social History Verified. * Medications: T akingAspir-81 81mg Multi Vitamin/Minerals Probiotic Albuterol Sulfate HFA Indapamide 1.25 MG Tablet Oral amLODIPine Besylate 10 MG Tablet Oral Losartan Potassium 100 MG Tablet Oral Levothyroxine Sodium 75 MCG Tablet Oral Rosuvastatin Calcium 10 MG Tablet Oral Dicyclomine HCl 20 MG Tablet TAKE 1 TABLET BY MOUTH EVERY 6 HOURFOR ABDOMINAL PAIN/CRAMPS/DISCOMFORT Taking Aspir-81 81mg Taking Multi Vitamin/Minerals Taking Probiotic Taking Albuterol Sulfate HFA Taking Indapamide 1.25 MG Tablet Oral Taking amLODIPine Besylate 10 MG Tablet Oral Taking Losartan Potassium 100 MG Tablet Oral Taking Levothyroxine Sodium 75 MCG Tablet Oral Taking Rosuvastatin Calcium 10 MG Tablet Oral Taking Dicyclomine HCl 20 MG Tablet TAKE 1 TABLET BY MOUTH EVERY 6 HOURFOR ABDOMINAL PAIN/CRAMPS/DISCOMFORT Not-Taking/PRNPantoprazole Sodium 40 MG Tablet Delayed Release 1 tablet Orally Once a day Pantoprazole Sodium 20 MG Tablet Delayed Release 1 tablet 1/2 to 1 hour before morning meal Orally Once a day Not-Taking/PRN Pantoprazole Sodium 40 MG Tablet Delayed Release 1 tablet Orally Once a day Not-Taking/PRN Pantoprazole Sodium 20 MG Tablet Delayed Release 1 tablet 1/2 to 1 hour before morning meal Orally Once a day DiscontinuedmetFORMIN HCl 1000 MG Tablet 1 tablet with a meal Orally Once a day Lisinopril 2.5 MG Tablet 1 tablet Orally Once a day NAC Salcha 3 Valsartan Fiber Medication List reviewed and reconciled with the patientDiscontinued metFORMIN HCl 1000 MG Tablet 1 tablet with a meal Orally Once a day Discontinued Lisinopril 2.5 MG Tablet 1 tablet Orally Once a day Discontinued NAC Discontinued Salcha 3 Discontinued Valsartan Discontinued Fiber Medication List reviewed and reconciled with the patient * Allergies: B actrimsulfaLisinopril Objective: * Vitals: W t:232.6lbs, Ht: 64 in, BMI:39.92Index, BP:001/01mm Hg, Temp:97.1F, Wt-k.51 kg. Assessment: * Assessment: 1. A bdominal pain - R10.9 (Primary) Plan: * Treatment: * Preventive Medicine: Counseling: C are goal follow-up plan: A nancy Normal BMI Follow-up D ietary management education, guidance, and counseling, B [facility] management provided Y es. Billing Information: * Procedure Codes: * The named appointment provid er may or may not be the originator of this progress note, and it is not deemed complete until electronically signed by the appointment provider. Sign off status: Pending * Provider: Lowell Laws MD Date: 1 Generated for Aimee schmitt/Tj/Caleitting on: 08/28/2024 09:31 PM EST
--- NOTE | ~2025-06-27 | CT_ITS ---
CLINICAL HISTORY: lower abdominal pain, diarrhea CT abdomen and pelvis with contrast Comparison: CT - CT ABDOMEN PELVIS W IV CON - 06/28/25 00:04 EST Findings: Minimal atelectasis at the lung bases. Hypodense liver. Borderline hepatomegaly 19.4 cm. Cholecystectomy. Small right parapelvic renal cysts. Abdominal solid organs otherwise unremarkable. No urolithiasis. Mild sigmoid wall thickening seen distally. Mesenteric vessels are patent. Extensive distal colonic diverticulosis without diverticulitis. Prostatomegaly. Urinary bladder unremarkable. Normal appendix. No ascites or hernia. The bones are intact. IMPRESSION: 1. Mild distal sigmoid wall thickening is nonspecific. Although nondistention is favored, clinical follow-up may be helpful to assure there is not a mass or hemoccult stool. 2. Hepatic steatosis with borderline hepatomegaly. 3. Additional nonacute findings as above. This document has been electronically signed by: Poornima Fajardo MD on 06/28/2025 01:04:53
[2025-06-27 18:35] VITALS: BP 157/89; PULSE 89; RESP 18; TEMP 36.6; O2SAT 99; BMI 39.5
--- NOTE | 2025-06-27 18:42 | ED.GENADULT ---
HPI - General Adult General Chief complaint: Abdominal Pain Stated complaint: abd pain x 7 days Time Seen by Provider: 06/27/25 21:47 Source: patient Mode of arrival: ambulatory Limitations: no limitations History of Present Illness ED Provider: Dr. Toya Chan HPI narrative: ? 63-year-old male presents with one-week history of abdominal pain predominantly on the right side, described as intermittent with superimposed severe spasms that worsen when lying flat. ? Pain occasionally migrates to the back and chest; spasms can take his breath away and are associated with a sensation of heart racing. ? Unable to tolerate oral intake for the past week; any food ?goes right through? him. ? Diarrhea 3?4 episodes/day, stool described by patient as ?full of oil, oily and the stool is malformed?; denies hematochezia. ? Associated symptoms: nausea (has not vomited), mild chest pain, burning sensation at anus (patient states ?My butt hole's burning?), abdominal/back spasms (especially at night), palpitations on standing. ? Denies fever, cough, or upper respiratory symptoms. ? Similar episode occurred weeks after cholecystectomy in November/January 2023 and resolved over ~8 weeks. ? States current pain feels different from baseline IBS. ? Past attempts at home management with ibuprofen provided no relief. ? Today symptoms worsened at work prompting ED visit. Related Data Home Medications ?Medication ?Instructions ?Recorded ?Confirmed albuterol sulfate 90 mcg/actuation 1 puff inhalation Q3-6H PRN 07/03/22 02/01/24 aerosol inhaler Wheezing amlodipine 10 mg tablet 1 tab PO DAILY 07/03/22 02/01/24 aspirin 81 mg tablet,delayed 81 mg PO DAILY 07/03/22 02/01/24 release levothyroxine 75 mcg tablet 1 tab PO DAILY 07/03/22 02/01/24 rosuvastatin 10 mg tablet 1 tab PO BEDTIME 07/03/22 02/01/24 valsartan 50 mg PO DAILY 07/03/22 02/01/24 indapamide 1.25 mg tablet 1.25 mg PO QAM 08/26/23 02/01/24 pantoprazole 40 mg tablet,delayed 40 mg PO DAILY 08/26/23 02/01/24 release Previous Rx's ?Medication ?Instructions ?Recorded dicyclomine 20 mg tablet 20 mg PO TID #10 tabs 06/28/25 ondansetron 4 mg disintegrating 4 mg PO Q8H PRN nausea and 06/28/25 tablet vomiting #10 tabs Allergies Allergy/AdvReac Type Severity Reaction Status Date / Time Sulfa (Sulfonamide Allergy Unknown HIVES Verified 06/27/25 18:39 Antibiotics) (SULFA (SULFONAMIDE ANTIBIOTICS)) lisinopril Allergy Wheezing Verified 06/27/25 18:39 sulfamethoxazole (From Allergy Weakness Verified 06/27/25 18:39 Bactrim) trimethoprim (From Bactrim) Allergy Weakness Verified 06/27/25 18:39 Review of Systems Review of Systems: as per HPI, full review of systems performed and negative but for the above mentioned pertinent positives and negatives. [facility] Past Medical History Medical History Hypertension Irritable bowel syndrome with constipation and diarrhea Hypercholesterolemia Gastric reflux (08/06/06) Fatty liver Esophageal reflux Hypothyroidism Asthma Hyperlipidemia HTN (hypertension) Diverticulitis GERD (gastroesophageal reflux disease) Diverticulosis Surgical History Hx laparoscopic cholecystectomy (12/04/23) H/O cardiac catheterization (~2016) H/O esophagogastroduodenoscopy H/O colonoscopy Social History Social History Alcohol intake: current Alcohol intake frequency: a few times a month Alcohol type: beer Patient Tobacco Use Status: Former Tobacco user Physical Exam ED Exam Exam: GENERAL: Ill-Appearing, appears uncomfortable. SKIN: Normal skin color for ethnicity, warm, dry, no rashes noted. HEENT:? Normocephalic, atraumatic, no stridor, dry mucous membranes, dentition intact, EOMI. NECK: Soft, supple, full ROM, midline structures nontender, no step-offs, no deformities, no lymphadenopathy. CHEST: Heart regular rhythm, no murmurs, symmetric chest rise and fall. PULMONARY: Clear to auscultation bilaterally, diminished at the bases, no labored breathing, no wheezes/rhales/rhonchi. ABDOMINAL: Soft, nondistended, nontender, hyperactive bowel sounds in all quadrants. : Deferred. MUSCULOSKELETAL: Normal tone, full range of motion, no deformities, no peripheral edema. NEURO: Alert and oriented x3, CN II through XII intact, equal strength and sensation bilateral upper and lower extremities, no focal neurologic deficits.? PSYCHIATRIC: Flat affect, fluid speech, good eye contact and appropriate demeanor. Vital Signs: Vital Signs - 24 hr 06/27/25 18:35 06/27/25 21:42 06/28/25 00:32 Temperature 98 F 97.7 F 97.9 F Pulse Rate 89 74 82 Respiratory Rate 18 16 16 Blood Pressure 157/89 H 135/71 121/70 Pulse Oximetry 99 96 95 Oxygen Delivery Method Room Air Room Air Room Air 06/28/25 02:45 06/28/25 02:58 Temperature 97.7 F 97.7 F Pulse Rate 71 71 Respiratory Rate 18 18 Blood Pressure 135/74 135/74 Pulse Oximetry 96 96 Oxygen Delivery Method Room Air Room Air BMI result Body Mass Index 39.5 Course Course Course Narrative: RME: 64-year-old male presents to ED for right side abdominal pain with diarrhea for the past 7 days. Patient denies any fever or chills. Labs ordered Medications Administered Discontinued Medications Generic Name Dose Route Start Last Admin Trade Name Freq PRN Reason Stop Dose Admin Dicyclomine HCl 20 mg 06/27/25 23:52 06/28/25 00:56 Dicyclomine Hcl 10 Mg Capsule PO 06/27/25 23:53 20 mg ONCE ONE Administration Lactated Ringer's 1,000 mls @ 999 mls/hr 06/27/25 23:52 06/28/25 02:35 Lr IV 06/28/25 00:52 Infused .Q1H1M ONE Infusion Iohexol 85 ml 06/28/25 00:20 06/28/25 00:23 Iohexol 350 Mg/Ml 100 Ml Infus..Btl IV 06/28/25 00:21 85 ml ONCE ONE Administration Ketorolac Tromethamine 15 mg 06/27/25 23:52 06/28/25 00:56 Ketorolac Tromethamine 15 Mg/Ml Vial IVPUSH 06/27/25 23:53 15 mg ONCE ONE Administration Ondansetron HCl 4 mg 06/27/25 23:52 06/28/25 00:56 Ondansetron Hcl 4 Mg/2 Ml Vial IVPUSH 06/27/25 23:53 4 mg ONCE ONE Administration Medical Decision Making Medical Decision Making [facility] Narrative: 63-year-old male with history of cholecystectomy and IBS presents with one-week history of right-sided abdominal pain, oily diarrhea, and inability to tolerate PO. Exam notable for diffuse abdominal tenderness and guarding. Labs unremarkable. Differential includes post-cholecystectomy diarrhea, IBS flare, infectious gastroenteritis, diverticulitis, or other intra-abdominal pathology. Problem #1: Abdominal pain with diarrhea Assessment: One-week duration, significant tenderness and guarding; labs do not indicate biliary obstruction or severe infection. Plan: - Abdominal imaging (ordered) to rule out diverticulitis or other acute pathology. - IV fluids for mild dehydration and poor oral intake. - IV analgesia for pain control. - Antiemetic as needed; patient prefers to minimize if possible. - Monitor response to therapy and imaging results in ED. Problem #2: Mild dehydration Assessment: Poor PO intake for one week; electrolytes currently normal. Plan: - Administer IV crystalloid fluids in ED. Re-evaluate after imaging and symptomatic treatment; further management decision based on imaging findings and clinical response. Patient feeling improved, pain relieved after bentyl and toradol. Clinical picture consistent with gastroenteritis. Using shared decision making, plan for discharge home to follow-up with primary care and/or specialist.? Patient understands and agrees with plan for discharge.? Discharged home in stable condition. Differential Diagnosis Differential Diagnoses: The differential diagnosis associated with the presentation includes (as above) Admission/Observation Consideration of admission/observation: Escalation of care including admission/observation considered Lab Data [facility] Lab Attestation statement: I reviewed the patient's lab results. 06/27/25 18:51 06/27/25 18:51 Labs: Lab Results 06/27/25 06/27/25 Range/Units 18:51 18:52 WBC 10.8 (4.8-10.8) X10*3/uL RBC 5.35 (4.60-5.80) X10*6/uL Hgb 16.7 (14.0-18.0) g/dl Hct 48.0 (42.0-52.0) % MCV 89.7 (80.0-98.0) fL MCH 31.2 (27.0-33.0) pg MCHC 34.8 (31.0-36.0) g/dl RDW 11.7 (11.0-16.0) % Plt Count 293 (160-400) X10*3/uL MPV 9.3 L (9.4-12.4) fL Immature Gran % (Auto) 0.5 H (0.0-0.4) % Neut % (Auto) 68.3 (45-73) % Lymph % (Auto) 21.5 (20-40) % [place] % (Auto) 7.8 (2-11) % Eos % (Auto) 1.3 (0-4) % Baso % (Auto) 0.6 (0-2) % Lymph # (Auto) 2.3 (1.2-4.9) X10*3/uL [place] # (Auto) 0.9 (0.1-1.2) X10*3/uL Eos # (Auto) 0.1 (0.0-0.4) X10*3/uL Baso # (Auto) 0.1 (0.0-0.2) X10*3/uL Abs Immat Gran (auto) 0.05 H (0.00-0.03) X10*3/uL Absolute Neuts (auto) 7.4 (2.0-8.3) x10*3/uL Absolute Nucleated RBC 0.000 (0.0-0.012) X10*3/uL Nucleated RBC % (auto) 0.0 (0.0-0.2) /100WBC Sodium 140 (135-145) mmol/L Potassium 3.7 (3.3-5.1) mmol/L Chloride 101 (96-108) mmol/L Carbon Dioxide 27 (22-29) mmol/L Anion Gap 16 (12-20) BUN 15 (9-16) mg/dL Creatinine 1.04 (0.5-1.4) mg/dL Estim Creat Clear Calc 80.5 Estimated GFR > 60 Random Glucose 130 H (60-115) mg/dL Calcium 10.4 H D (8.4-10.2) mg/dL Total Bilirubin 0.8 (0.0-1.0) mg/dL AST 28 (5-37) U/L ALT 64 H (0-40) U/L Alkaline Phosphatase 63 (39-117) U/L Total Protein 8.1 H (6.5-8.0) g/dL Albumin 5.3 H (3.5-5.0) g/dL Lipase 33 (8-78) U/L Urine Color Yellow Urine Appearance Clear Urine pH 5.0 (5.0-9.0) Ur Specific [place] <= 1.005 (1.005-1.025) Urine Protein Negative (Neg-Trace) mg/dL Urine Glucose (UA) Negative (Negative) mg/dL Urine Ketones Trace (Negative) mg/dL Urine Blood Negative (Negative) Urine Nitrite Negative (Negative) Ur Leukocyte Esterase Negative (Negative) Influenza Type A (PCR) NEGATIVE (Negative) Influenza Type B (PCR) NEGATIVE (Negative) RSV RNA Qual (PCR) NEGATIVE (Negative) SARS-CoV-2 RNA (RT-PCR) NEGATIVE (Negative) Radiology Impression Discussion of test interpretation with radiology: I have reviewed the radiologist's reading. External Record Review External record reviewed: Inpatient record Prescription Management I considered prescription management with: Pain Medication Chronic Conditions Patient?s care impacted by: Hypertension Discharge Plan Discharge Clinical Impression: Acute abdominal pain, Gastroenteritis Patient Disposition: Home, Self-Care Instructions: Gastroenteritis (ED) Additional Instructions: DIAGNOSIS & TREATMENT: You were seen in the Emergency Department for your abdominal pain. We performed laboratory work and a CT scan of your abdomen and pelvis which did not reveal any acute abnormalities that would explain your symptoms. You are most likely suffering from a gastroenteritis (stomach flu) that is treated with supportive care such as increased fluid intake, Tylenol for fever and rest. FURTHER CARE: We have not found any emergent physical exam or lab abnormalities that would require admission to the hospital today. Many people who come to the ER with abdominal pain do not leave with a specific diagnosis at the end of their visit. In the Emergency Department we try to make sure that there is no emergent problem that needs surgery or antibiotics right now. This does not mean that your evaluation is complete--please be sure to follow up with your regular doctor as additional testing as an outpatient may be indicated Please be certain to drink plenty of fluids over the next several. You should advance your diet as tolerated. You may wish to start with the BRAT diet (bananas, rice, applesauce, toast). WHEN YOU SHOULD BE SEEN NEXT: Please follow-up with your primary care provider within the next 2-3 days for reevaluation of your symptoms. Call Dr. Laws regarding your CT results findings of thickened colon wall that should be followed up as soon as possible. You need to have a fecal occult blood test to check for blood in your stool. WHEN TO RETURN TO THE ED: Monitor your symptoms closely and return to the emergency department immediately for any new/worsening symptoms, worsening abdominal pain, pain which changes location (particularly if it moved to the right lower quadrant), nausea, vomiting, blood in your stool, black/tarry stools, chest pain, shortness of breath, fevers, chills, night sweats, you are unable to arrange follow-up care, or any other concerning symptoms. Prescriptions: New dicyclomine 20 mg tablet 20 mg PO TID Qty: 10 0RF ondansetron 4 mg tablet,disintegrating 4 mg PO Q8H PRN (Reason: nausea and vomiting) Qty: 10 0RF No Action aspirin [Aspir-81] 81 mg Tablet,Delayed Release (Dr/Ec) 81 mg PO DAILY levothyroxine 75 mcg tablet 1 tab PO DAILY amlodipine 10 mg tablet 1 tab PO DAILY albuterol sulfate 90 mcg/actuation HFA aerosol inhaler 1 puff inhalation Q3-6H PRN (Reason: Wheezing) rosuvastatin 10 mg tablet 1 tab PO BEDTIME valsartan 50 mg PO DAILY indapamide 1.25 mg tablet 1.25 mg PO QAM pantoprazole 40 mg tablet,delayed release (DR/EC) 40 mg PO DAILY Stand Alone Forms: Work/School Release Interventions: ED Discharge Assessment Last Done: 06/28/25 02:58 Discharge Date/Time: 06/28/25 02:59 Print Language: Kosovan
[2025-06-27 19:02] LABS: MANUAL DIFF FLAG NO
[2025-06-27 19:05] LABS: Hematocrit 48.0 % (42.0-52.0); Hemoglobin 16.7 g/dl (14.0-18.0); Imm Gran Abs Auto 0.05 X10*3/uL (0.00-0.03); Imm Gran Pct Auto 0.5 % (0.0-0.4); Lymphocytes Absolute Auto 2.3 X10*3/uL (1.2-4.9); Mean Corpuscular HGB Conc 34.8 g/dl (31.0-36.0); Mean Corpuscular Hemoglobin 31.2 pg (27.0-33.0); Mean Corpuscular Volume 89.7 fL (80.0-98.0); NRBC Abs Auto 0.000 X10*3/uL (0.0-0.012); NRBC Pct Auto 0.0 /100WBC (0.0-0.2); Platelet Count 293 X10*3/uL (160-400); Red Blood Count 5.35 X10*6/uL (4.60-5.80); White Blood Count 10.8 X10*3/uL (4.8-10.8)
[2025-06-27 19:05] LABS: Appearance Urine Clear; Glucose Urine UA Negative (Negative); PH 5.0 (5.0-9.0); Specific Gravity - Urine <= 1.005 (1.005-1.025)
[2025-06-27 19:22] LABS: Alanine Aminotransferase 64 U/L (0-40); Albumin Level 5.3 g/dL (3.5-5.0); Alkaline Phosphatase 63 U/L (39-117); Anion Gap 16 (12-20); Aspartate Amino Transferase 28 U/L (5-37); Blood Urea Nitrogen 15 mg/dL (9-16); Calcium 10.4 mg/dL (8.4-10.2); Carbon Dioxide 27 mmol/L (22-29); Chloride 101 mmol/L (96-108); Creatinine Clr Calc Pharmacy 80.5; Estimated Glomerular Filt Rate > 60; Lipase 33 U/L (8-78); Potassium 3.7 mmol/L (3.3-5.1); Sodium 140 mmol/L (135-145); Total Protein 8.1 g/dL (6.5-8.0)
[2025-06-27 19:45] LABS: Resp Syncy Virus RNA Qual PCR NEGATIVE (Negative); SARS COV2 PCR INHOUSE NEGATIVE (Negative)
--- OUTSIDE RECORDS SUMMARY | 2025-06-27 21:31 | XMS_ITS | Clinical Summary ---
Author Organization [address] Address [address] [place] [phone] Phone Care Team Providers Care Program Services Planner Name Role Phone Jose Geiger MD Primary Care Provider [phone] Allergies Active Allergy Reactions Criticality Noted Date [...] by mouth 1 (one) time each day. 4 Active MULTIVITAMIN ORAL Take by mouth. Activ e aspirin 81 mg EC tablet Take by mouth. Activ e p-jfpiah-vbvrgl ne (NAC) 600 mg capsule Take by mouth. Activ e UNABLE TO FIND Med Name: NMN supplement Active cholecalciferol (VITAMIN D-3) 50 mcg (2,000 unit) tablet Take 1 tablet (2,000 Units total) by mouth 1 (one) time each day. 90 tablet 1 5 Active indapamide (LOZOL) 1.25 mg tablet TAKE 1 TABLET BY MOUTH DAILY 90 tablet 3 5 Active levothyroxine (SYNTHROID, LEVOTHROID) 75 mcg tablet TAKE 1 TABLET BY MOUTH DAILY 90 tablet 3 5 Active rosuvastatin (CRESTOR) 10 mg tablet TAKE 1 TABLET BY MOUTH AT BEDTIME 90 tablet 3 5 Active amLODIPine (NORVASC) 10 mg tablet Take 1 tablet (10 mg total) by mouth 1 (one) time each day. 90 tablet 1 5 Active metFORMIN (GLUCOPHAGE) 500 mg tablet TAKE 1 TABLET BY MOUTH TWICE DAILY WITH MEALS 180 tablet 1 5 Active albuterol HFA (PROAIR HFA ; PROVENTIL HFA ; VENTOLIN HFA) 90 mcg/actuation inhaler USE 2 INHALATIONS BY MOUTH EVERY 4 HOURS IF NEEDED FOR WHEEZING 51 g 3 5 Active losartan (COZAAR) 100 mg tablet TAKE 1 TABLET BY MOUTH ONCE DAILY 90 tablet 1 5 Active Active Problems Problem Noted Date Diagnosed Date Type 2 diabetes mellitus wit hout complication, without long-term current use of insulin 09/16/2024 Vitamin D insufficiency 09/16/2024 Esophageal spasm 06/17/2024 COVID-19 06/22/2022 Obstructive sleep apnea 07/29/2021 Overview (06/17/2024): [facility] Home sleep test 07/24/2021; weight 245; BMI [...] IBS (irritable bowel syndrome) 07/21/2011 Morbid obesity 07/21/2011 HTN (hypertension), benign 07/02/2009 Generalized anxiety disorder 07/29/2007 High cholesterol 07/29/2007 Resolved Problems Problem Noted Date Diagnosed Date Resolved Date Prediabetes 02/26/2021 09/16/2024 Overview (06/17/2024): A1c of 6.4%. Encounters Date Type Department Care Team Description 04/13/2025 Nurse Triage Adult [address] [phone] Jose Geiger MD 04/12/2025 Nurse Triage Adult Medicine [address] [phone] Jose Geiger MD 03/29/2025 7:33 AM EDT - 03/29/2025 11:59 PM EDT Hospital Encounter Radiology Department - [address] [phone] Hypothyroidism, unspecified type; Throat pain Discharge Disposition: Home or Self Care from Last 3 Months Immunizations Immunization Administration Dates Next Due Influenza Quadravalent, MDCK , 0.5ml, preservative free (Flucelvax) 6mo and older 04/15/2023,04/15/2021,05/05/2019,03/29 Influenza trivalent, 0.5mL, preservative free (Fluarix; FluLaval; Fluzone) ages 6mo and older (Afluria) 3 years and older 03/24/2024,04/12/2017,03/25/2013,05/12,04/14/2011,05/13/2010,04/04/2009 Pfizer SARS-CoV-2 COVID-19, mRNA, LNP-S, preservative free 03/01/2021,02/08/2021 Pneumococcal conjugate 20 va lent (Prevnar 20, PCV 20) 2mo and older 03/20/2025 Pneumococcal polysaccharide 23 valent (Pneumovax 23) 2yo [...] COMMENT: diverticulosis UPPER GASTROINTESTINAL ENDOSCOPY 04/16/2017 PROCEDURE: ME UPPER GI ENDOSCOPY PERFORMED; COMMENT: normal COLONOSCOPY 10/04/2010 PROCEDURE: HISTORICAL COLONOSCOPY; COMMENT: diverticulosis UPPER GASTROINTESTINAL ENDOSCOPY 10/04/2010 PROCEDURE: ME UPPER GI ENDOSCOPY PERFORMED; COMMENT: normal Medical [...] drink = 0.6 oz pur e alcohol) Housing Instability Answer Date Recorde d Are you worried that in the next 2 months you may not have stable housing? No 03/20/2025 Food Access & Nutrition Answer Date Rec orded Do you have access to a vari ety of food including fruits and vegetables? No 03/20/2025 Access to Healthcare Answer Date Record ed Within the last 3 months, ho w many times did you visit the emergency department for your medical care? 0 03/20/2025 Health Literacy Answer Date Recorded How often do you need to hav e someone help you when you read instructions, pamphlets, or other written material from your doctor or pharmacy? Never 03/20/2025 Caregiver: How often do you need to have someone help you when you read instructions, pamphlets, or other written material from your doctor or pharmacy? Not on file 03/20/2025 Financial Risk Answer Date Recorded How hard is it for you to pa y for the very basics like food, housing, medical care, and air conditioning / heating? Not very hard 03/20/2025 Transportation Answer Date Recorded Has the lack of transportati on kept you from meetings, work, or from getting things needed for daily living? No Has the lack of transportati on kept you from medical appointments or from getting medications? No 03/20/2025 Social Isolation Answer Date Recorded How often do you feel lonely or isolated from th ose around you? Never 03/20/2025 Food Risk Answer Date Recorded Within the past 12 months we worried whether our food would run out before we got money to buy more. Never true 03/20/2025 Within the past 12 months th e food we bought just didn't last and we didn't have money to get more. Never true 03/20/2025 Dependent Care Answer Date Recorded Do you need help finding or paying for care for your loved ones. For example, child guidance counselor or elderly care for an older adult? No 03/20/2025 Education Answer Date Recorded Do you think completing more education or training, like finishing a GED, going to college, or learning a trade, would be helpful for you? No 03/20/2025 Employment and Income Answer Date Recor ded During the last four weeks, have you been actively looking for work? No 03/20/2025 Living Situation Answer Date Recorded What is your living situation? Unrecognized valu e 03/20/2025 Sex and Gender Information Value Date Recorded Sex Assigned at Not on file Legal Sex Male 11:17 AM EST Gender Identity Not on file Sexual Orientation Not on file Last Filed Vital Signs Vital Sign Reading Time Taken Comments Blood Pressure 130/70 03/20/2025 8:00 AM EDT A Pulse 66 03/20/2025 7:56 AM EDT Temperature 37 C (98.6 F) 03/20/2025 7:56 AM EDT Respiratory Rate 20 03/20/2025 7:56 AM EDT Oxygen Saturation 96% 03/20/2025 7:56 AM EDT Inhaled Oxygen Concentration - - Weight 109 kg (241 lb) 03/20/2025 7:56 AM EDT Height 160 cm (5' 3 ) 03/20/2025 7:56 AM EDT Body Mass Index 42.69 03/20/2025 7:56 AM EDT Plan of Treatment Upcoming Encounters Date Type Department Care Team (Late st Contact Info) Description 10/03/2025 4:30 PM EDT Office Visit Adult Medicine [address] [phone] Jose Geiger MD [address] [place] [address] Health Maintenance Due Date Last Done Comments Diabetes: Annual Foot Exam 1972 Diabetes: Annual Retina Eye Exam 1972 RSV Immunization Adult Patients (1 - Risk 50-74 years 1-dose series) 2012 HIV Screening 06/21/2022 COVID-19 Vaccine ( season) 2025 03/01/2021, 02/08/2021 Influenza Vaccine (#1) 2025 , 04/15/2023, 05/13/2022, Additional history exists Diabetes: Blood Sugar Control Test (HGBA1C) 09/17/2025 03/20/2025, 09/13/2024, 03/21/2024, Additional history exists Diabetes: Annual Urine Albumin-Creatinine Ratio (uACR) 03/20/2026 03/20/2025 Diabetes: Annual GFR (Glomerular Filtration Rate) 03/20/2026 03/20/2025, 09/13/2024, 11/18/2023, Additional history exists Hypertension/CHF/CAD Annual BMP Blood Test 03/20/2026 03/20/2025, 09/13/2024, 11/18/2023, Additional history exists Social Influencers of Health Screening 03/20/2026 03/20/2025 Colorectal Cancer Screening: Colonoscopy 04/16/2027 04/16/2017 DTaP,Tdap,and Td Vaccines (3 - Td or Tdap) 03/29/2028 03/29/2018, 08/17/2007 Cholesterol Screening (Lipid Panel) 03/20/2030 03/20/2025, 09/13/2024, 11/18/2023, Additional history exists Hepatitis C Screening Completed 03/05/2013 Zoster Vaccines Completed 11/10/2020, 09/11/2020 Depression Screening Completed 03/20/2025 Pneumococcal Vaccine: 50+ Years Completed 03/20/2025, 03/29/2018 HIB Vaccines Aged Out No longer eligi [...] Procedure Name Priority Date/Time Associated Diagnosis Comments US HEAD NECK SOFT TISSUE Routine 03/29/2025 7:45 AM EDT Hypothyroidism, unspecified type Throat pain MICROALBUMIN CREATININE URINE RATIO Routine 03/20/2025 8:46 AM EDT Type 2 diabetes mellitus without complication, without long-term current use of insulin ([facility] V24, [facility] V28) COMPREHENSIVE METABOLIC PANEL Routine 03/20/2025 8:46 AM EDT HTN (hypertension), benign Type 2 diabetes mellitus without complication, without long-term current use of insulin ([facility] V24, [facility] V28) Encounter for long-term (current) use of medications HEMOGLOBIN A1C Routine 03/20/2025 8:46 AM EDT Type 2 diabetes mellitus without complication, without long-term current use of insulin ([facility] V24, [facility] V28) LIPID PANEL WITH REFLEX TO DIRECT LDL Routine 03/20/2025 8:46 AM EDT High cholesterol Type 2 diabetes mellitus without complication, without long-term current use of insulin ([facility] V24, [facility] V28) COLONOSCOPY Routine 04/16/2017 HEPATITIS C SCREENING Routine 03/05/2013 from Last 3 Months or Most Recently Relevant to Health Maintenance Results * US Head Neck Soft Tissue (03/29/2025 7:45 AM EDT) Anatomical Region Laterality Modality Head and Neck Ultrasound 03/29/2025 9:23 AM EDT Impressions 03/29/2025 10:01 AM EDT Unremarkable thyroid ultrasound. -------- FINAL REPORT -------- Dictated By: Austin Balbuena Dictated Date: 03/29/2025 09:23 ET Assigned Physician: Austin Balbuena Reviewed and Electronically Signed By: Austin Balbuena Signed Date: 03/29/2025 10:01 ET Workstation ID: [id number] Transcribed By: Self Edit Transcribed Date: 03/29/2025 09:23 ET Narrative 03/29/2025 10:01 AM EDT Exam: Thyroid ultrasound. HISTORY: throat pain in settiing in hypothyroidism COMPARISON: Ultrasound thyroid from 07/23/2021 Technique: Grayscale and Doppler images of the thyroid gland were obtained. FINDINGS: The thyroid gland is normal in size. The right lobe measures 4.4 x 1.5 x 1.6 cm. The left lobe measures 4.0 x 1.3 x 1.9 cm. The thyroid isthmus is normal in size and measures 0.4 cm. The thyroid parenchyma is homogenous. No focal nodules Procedure Note Austin Balbuena MD - 03/29/2025 Exam: Thyroid ultrasound. HISTORY: throat pain in settiing in hypothyroidism COMPARISON: Ultrasound thyroid from 07/23/2021 Technique: Grayscale and Doppler images of the thyroid gland wereobtained. FINDINGS: The thyroid gland is normal in size. The right lobe measures 4.4 x 1.5 x1.6 cm. The left lobe measures 4.0 x 1.3 x 1.9 cm. The thyroid isthmus isnormal in size and measures 0.4 cm. The thyroid parenchyma is homogenous.No focal nodules IMPRESSION: Unremarkable thyroid ultrasound. -------- FINAL REPORT -------- Dictated By: Austin Balbuena Dictated Date: 03/29/2025 09:23 ET Assigned Physician: Austin Balbuena Reviewed and Electronically Signed By: Austin Balbuena Signed Date: 03/29/2025 10:01 ET Workstation ID: [id number] Transcribed By: Self Edit Transcribed Date: 03/29/2025 09:23 ET us Jose Geiger MD [facility] US PROCEDURES Final Result * Lipid panel with reflex to direct LDL (03/20/2025 8:46 AM EDT) Cholesterol 122 0 - 200 mg/dL LAB CHEMISTRY METHOD 03/20/2025 2:20 PM EDT [facility] Triglycerides 148 0 - 150 mg/dL LAB CHEMISTRY METHOD 03/20/2025 2:20 PM EDT [facility] HDL 50 >=40 mg/dL LAB CHEMISTRY METHOD 03/20/2025 2:20 PM EDT [facility] LDL Calculated 42 0 - 100 mg/dL LAB CHEMISTRY METHOD 03/20/2025 2:20 PM EDT [facility] Comment:Estimated LDL Calcul ated using equation: Total cholesterol - HDL cholesterol - (Triglycerides/5) VLDL Cholesterol Garo 29.6 mg/dL LAB CHEMISTRY METHOD 03/20/2025 2:20 PM EDT [facility] Non HDL Chol. (LDL+VLDL) 72 <145 mg/dL LAB CHEMISTRY METHOD 03/20/2025 2:20 PM EDT [facility] Chol/HDL Ratio 2.4 0.0 - 4.4 LAB CHEMISTRY METHOD 03/20/2025 2:20 PM EDT [facility] Blood Venous blood specimen / Unknown Venipuncture / Unknown 03/20/2025 8:46 AM EDT 03/20/2025 8:46 AM EDT us Jose Geiger MD LAB BLOOD ORDERABLES Final Resu lt [facility] [address] [place] [address], * Microalbumin creatinine urine ratio (03/20/2025 8:46 AM EDT) Creatinine, Urine 64.0 mg/dL LAB CHEMISTRY METHOD 03/20/2025 11:34 AM EDT [facility] Microalb, Ur <5.0 0.0 - 29.0 mg/L LAB CHEMISTRY METHOD 03/20/2025 11:34 AM EDT [facility] Microalb/Creat Ratio <8 <30 mg/g creat LAB CHEMISTRY METHOD 03/20/2025 11:34 AM EDT [facility] Urine Urine specimen obtained by clean catch procedure / Unknown Non-blood Collection / Unknown 03/20/2025 8:46 AM EDT 03/20/2025 8:46 AM EDT us Jose Geiger MD LAB URINE ORDERABLES Final Resu lt Performing Organization Address [facility]/ZIP Co de Phone Number [facility] [address] [place] [address], [place] [phone] * (ABNORMAL) Hemoglobin A1c (03/20/2025 8:46 AM EDT) Pathologist [facility] Hemoglobin A1C 6.6(H) <6.5 % LAB CHEMISTRY METHOD 03/20/2025 12:27 PM EDT [facility] Mean Bld Glu Estim. 143 mg/dL LAB CHEMISTRY METHOD 03/20/2025 12:27 PM EDT [facility] Blood Venous blood specimen / Unknown Venipuncture / Unknown 03/20/2025 8:46 AM EDT 03/20/2025 8:46 AM EDT us Jose Geiger MD LAB BLOOD ORDERABLES Final Resu lt Performing Organization Address City/[facility]/ZIP Co de Phone Number [facility] [address] [place] [address], [place] [phone] * (ABNORMAL) Comprehensive metabolic panel (03/20/2025 8:46 AM EDT) [facility] Sodium 137 133 - 145 mmol/L LAB CHEMISTRY METHOD 03/20/2025 2:20 PM EDT [facility] Potassium 3.7 3.5 - 5.5 mmol/L LAB CHEMISTRY METHOD 03/20/2025 2:20 PM EDT [facility] Chloride 103 96 - 110 mmol/L LAB CHEMISTRY METHOD 03/20/2025 2:20 PM EDT [facility] CO2 28 21 - 32 mmol/L LAB CHEMISTRY METHOD 03/20/2025 2:20 PM EDT [facility] Anion Gap 6 3 - 11 LAB CHEMISTRY METHOD 03/20/2025 2:20 PM [facility] Glucose 125(H) 70 - 100 mg/dL LAB CHEMISTRY METHOD 03/20/2025 2:20 PM [facility] BUN 19 5 - 25 mg/dL LAB CHEMISTRY METHOD 03/20/2025 2:20 PM [facility] Creatinine 1.06 0.70 - 1.30 mg/dL LAB CHEMISTRY METHOD 03/20/2025 2:20 PM [facility] eGFR 79 >=60 mL/min/1. 73m2 LAB CHEMISTRY METHOD 03/20/2025 2:20 PM [facility] Comment:Calculation based on the Chronic Kidney Disease Epidemiology Collaboration (CKD-EPI) equation refit without adjustment for race. BUN/Creatinine Ratio 17.9 LAB CHEMISTRY METHOD 03/20/2025 2:20 PM [facility] Calcium 9.4 8.5 - 10.5 mg/dL LAB CHEMISTRY METHOD 03/20/2025 2:20 PM [facility] AST (SGOT) 33 10 - 42 unit/L LAB CHEMISTRY METHOD 03/20/2025 2:20 PM [facility] ALT (SGPT) 92(H) 10 - 60 unit/L LAB CHEMISTRY METHOD 03/20/2025 2:20 PM [facility] Alkaline Phosphatase 54 42 - 121 unit/L LAB CHEMISTRY METHOD 03/20/2025 2:20 PM [facility] Total Protein 7.0 6.0 - 8.0 g/dL LAB CHEMISTRY METHOD 03/20/2025 2:20 PM [facility] Albumin 4.2 3.2 - 5.0 g/dL LAB CHEMISTRY METHOD 03/20/2025 2:20 PM [facility] Total Bilirubin 0.6 0.0 - 1.4 mg/dL LAB CHEMISTRY METHOD 03/20/2025 2:20 PM EDT [facility] Blood Venous blood specimen / Unknown Venipuncture / Unknown 03/20/2025 8:46 AM EDT 03/20/2025 8:46 AM EDT Jose Geiger MD LAB BLOOD ORDERABLES Final Resu lt [facility] [address] [place] [address], * Colonoscopy (04/16/2017) Colonoscopy abstracted, no interpretation Anatomical Region Laterality Modality Other Historical Provider HEALTH MAINTENANCE Final Result * Hepatitis C Screening (03/05/2013) Hepatitis C Screening abstracted Historical Provider HEALTH MAINTENANCE Final Result from Last 3 Months or Most Recently Relevant to Health Maintenance Insurance [facility] Care Teams Program Services Planner Relationship Specialty Start Date End Date Jose Geiger MD [address], [place] PCP - General Internal Medicine 04/04/19
--- OUTSIDE RECORDS SUMMARY | 2025-06-27 21:31 | XMS_ITS | Clinical Summary ---
Author Organization [facility] Address [address] [place] [address] Care Team Providers Care [employer] Name Role Phone Unknown Primary Care Provider [...] 50+ (1 of 1 - PCV) 2012 RSV Vaccine 50 years and old er and Patients (1 - Risk 50-74 years 1-dose series) 2012 Zoster (Shingles) Vaccine (1 of 2) 2012 Influenza Vaccine 02/10/2025 COVID-19 Vaccine (1 - 2024-2 6 season) 2025 Hepatitis B Vaccines Aged Out No long er eligible based on patient's age to complete this topic Insurance [employer] HMO/POS [employer] HMO/POS Advance Directives * Full Code (Latest Code Status on File) Date Activated Date Inactivated Comments 09/19/2016 2:06 PM 09/22/2016 8:01 PM Care Teams [employer] Relationship Specialty Start Date End Date Unknown Unknow Provider Address PCP - General 09/19/16
--- OUTSIDE RECORDS SUMMARY | 2025-06-27 21:31 | XMS_ITS | Patient Health Record ---
Author Organization [facility] Address [address] [place] [address] Care Team Providers Care Junior Qa Analyst Name Role Phone Jose Geiger MD Primary Care Provider Reyes Cm Jr Unavailable Allergies Allergen (clinical drug ingredient) Drug/Non Drug Allergy documented on EMR Reaction Allergy Type Onset Date Status sulfamethoxazole / trimethoprim Bactrim (uncoded) Unknown Allergy Active Substance with sulfonamide structure and antibacterial mechanism of action (substance) sulfa (uncoded) Unknown Allergy Active lisinopril Lisinopril Unknown Drug Allergy Activ e Results Component Value Reference Range Flag Notes Complete Blood Count no Diff Reviewed date:02/02/2025 09:26:11 AM Interpretation: Performing Lab:[facility], [address] [place] [phone] Notes/Report: White Blood Count 6.1 4.8-10.8 X10*3/uL N Red Blood Count 4.67 4.60-5.80 X10*6/uL N Hemoglobin 14.6 14.0-18.0 g/dl N Hematocrit 42.1 42.0-52.0 % N Mean Corpuscular Volume 90.1 80.0-98.0 fL N Mean Corpuscular Hemoglobin 31.3 27.0-33.0 pg N Mean Corpuscular HGB Conc 34.7 31.0-36.0 g/dl N Red Cell Distribution Width 12.1 11.0-16.0 % N Platelet Count 234 160-400 X10*3/uL N Mean Platelet Volume 9.8 9.4-12.4 fL N NRBC Pct Auto 0.0 0.0-0.2 /100WBC N NRBC Abs Auto 0.000 0.0-0.012 X10*3/uL N Liver Panel Reviewed date:02/02/2025 09:26:02 AM Interpretation: Performing Lab:[facility], [address] [place] [phone] Notes/Report: Bilirubin Total 0.7 0.0-1.0 mg/dL N Bilirubin Direct 0.3 0.0-0.5 mg/dL N Aspartate Amino Transferase 30 5-37 U/L N Alanine Aminotransferase 78 0-40 U/L H Total Protein 6.6 6.5-8.0 g/dL N Albumin Level 4.4 3.5-5.0 g/dL N Alkaline Phosphatase 53 39-117 U/L N Blood Urea Nitrogen Reviewed date:02/02/2025 09:24:54 AM Interpretation: Performing Lab:[facility], [address] [place] [phone] Notes/Report: Blood Urea Nitrogen 16 9-16 mg/dL N Creatinine Reviewed date:02/02/2025 09:24:44 AM Interpretation: Performing Lab:[facility], [address] [place] [phone] Notes/Report: Creatinine 0.81 0.5-1.4 mg/dL N Estimated Glomerular Filt Rate > 60 Chronic Kidney Disease: Estimated GFR < 60 mL/min/1.73m2 Severe Kidney Disease: Estimated GFR < 15 mL/min/1.73m2 Creatinine GFR POC Reviewed date:03/09/2025 09:26:32 AM Interpretation: Performing Lab:[facility], [address] [place] [phone] Notes/Report: [id number] 0.95 >60 0807 HO.THEBODA Creatinine POC 1.0 0.5-1.4 mg/dL N GFR POC > 60 Chronic Kidney Disease: Estimated GFR < 60 mL/min/1.73m2 Severe Kidney Disease: Estimated GFR < 15 mL/min/1.73m2 CT abdomen pelvis w con Reviewed date:03/10/2025 03:16:18 PM Interpretation: Performing Lab: Notes/Report: [address] [address] [address] Scan Report Signed Patient: Mervat Ashby MR#: [id number] : 1960 Acct:[id number] Age/Sex: 64 / M ADM Date: 03/09/25 Loc: HO.CT Attending Dr: Reyes Laws MD Ordering Physician: Reyes Laws MD Date of Service: 03/09/25 Procedure(s): CT abdomen pelvis w IV con Accession Number(s): [id number] cc: Reyes Laws MD; Jose Geiger III, MD Report Number: [id number]: Total DLP = 837.00 mGy-cm EXAMINATION: CT ABDOMEN AND PELVIS WITH CONTRAST CLINICAL INFORMATION: Elevated liver function tests/enzymes. Fatty liver.. COMPARISON: May 25, 2024. TECHNIQUE: Multidetector volumetric images were obtained from the superior aspect of the liver through the pubic symphysis following administration 85 mL of Omnipaque 350 intravenous contrast. Sagittal and coronal reformatted images were obtained on the technologist's workstation. Oral contrast: Yes This CT examination was performed using dose optimization techniques as appropriate, variously including the following: *Automated exposure control *Adjustment of mA and/or kV according to patient size (this includes techniques or standardized protocols for targeted exams where dose is matched to indication/reason for exam; i.e. extremities or head) *Use of iterative reconstruction technique. DLP: 837 mGy centimeter. FINDINGS: Patient's large body habitus/obesity. LUNG BASES: 1.5 mm noncalcified pulmonary nodule, right middle lung lobe. Linear attenuation in the lingula and right middle lung lobe. LIVER, GALLBLADDER, AND BILIARY TREE: Liver measures 20 cm. Decreased enhancement pattern throughout its parenchyma. No focal mass. Main portal veins, hepatic veins and intrahepatic portion of the IVC are patent. No focal mass. Status post cholecystectomy, likely laparoscopic. Common bile duct measures 6 mm maximum diameter. PANCREAS: No focal mass. No peripancreatic fluid collection. No main pancreatic ductal dilatation. SPLEEN: 11 cm. No focal mass. ADRENAL GLANDS: No nodular lesions. KIDNEYS AND URETERS: No hydronephrosis. No gross nephrolithiasis. No enhancing renal mass. Cortical defect in the posterior midportion right kidney. BLADDER: Fluid-filled. GASTROINTESTINAL TRACT: Abundant stool throughout the large intestine. Numerous diverticula in the left hemicolon. Appendix is normal. No intestinal obstruction pattern. No gross intestinal wall thickening. No pneumatosis intestinalis. No ascites. No pneumoperitoneum. No peripheral enhancing fluid collection, peritoneal cavity. ABDOMINAL WALL: Diastases abdominal rectus muscles in the infraumbilical region with small fat-containing umbilical and periumbilical hernia. Fat-containing inguinal hernias pronounced/larger on the left side. LYMPH NODES: Nonspecific mildly prominent, mesenteric and retroperitoneum. VASCULAR: No aneurysm or dissection, abdominal aorta. Calcified plaques throughout the thoracic and abdominal aorta, the mesenteric arteries, the splenic artery, iliac arteries and femoral arteries. PELVIC VISCERA: Not enlarged. OSSEOUS STRUCTURES: Multilevel thoracolumbar spondylosis pronounced at L5-S1 and L4-5 levels likely resulting in central spinal canal and neuroforamina stenosis at L4-5. Grade 1 anterolisthesis L4-5. Sclerosis in the sacroiliac joints. No lytic or blastic lesions. CT/CT abdomen pelvis w IV con IMPRESSION: Hepatomegaly and steatosis. Diverticular disease. Fat-containing bilateral inguinal hernias and umbilical/periumbilical hernia. Spondylosis L4-5 resulting in grade 1 anterolisthesis. Atherosclerosis disease. Fleischner guidelines were followed. Electronically signed by: Jose E Burns MD 03/09/2025 09:02 AM EDT Dictated By: Jose E Smith MD Signed By: <Electronically signed by Jose E Morales MD in OV> 03/09/25 0902 DD/ 0810 TD/TT: 03/09/25 0848 Kiln Maintenance: Complete Blood Count no Diff Reviewed date:04/20/2025 08:23:18 AM Interpretation: Performing Lab:[facility], [address] [place] [phone] Notes/Report: White Blood Count 9.0 4.8-10.8 X10*3/uL N Red Blood Count 5.27 4.60-5.80 X10*6/uL N Hemoglobin 16.2 14.0-18.0 g/dl N Hematocrit 47.9 42.0-52.0 % N Mean Corpuscular Volume 90.9 80.0-98.0 fL N Mean Corpuscular Hemoglobin 30.7 27.0-33.0 pg N Mean Corpuscular HGB Conc 33.8 31.0-36.0 g/dl N Red Cell Distribution Width 12.2 11.0-16.0 % N Platelet Count 279 160-400 X10*3/uL N Mean Platelet Volume 10.0 9.4-12.4 fL N NRBC Pct Auto 0.0 0.0-0.2 /100WBC N NRBC Abs Auto 0.000 0.0-0.012 X10*3/uL N Liver Panel Reviewed date:04/20/2025 08:23:08 AM Interpretation: Performing Lab:[facility], [address] [place] [phone] Notes/Report: Bilirubin Total 0.8 0.0-1.0 mg/dL N Bilirubin Direct 0.3 0.0-0.5 mg/dL N Aspartate Amino Transferase 43 5-37 U/L H Alanine Aminotransferase 104 0-40 U/L H Total Protein 7.5 6.5-8.0 g/dL N Albumin Level 5.1 3.5-5.0 g/dL H Alkaline Phosphatase 59 39-117 U/L N Lipase Reviewed date:04/20/2025 08:23:01 AM Interpretation: Performing Lab:[facility], [address] [place] [phone] Notes/Report: Lipase 30 8-78 U/L N Reason For Referral No Information Medications Medication SIG (Take, Route, Frequency, Duration) Notes Start Date End Date Status Losartan Potassium 100 MG Tablet Oral; Duration: 90 Active Levothyroxine Sodium 75 MCG Tablet Oral; Duration: 90 Active Pantoprazole Sodium 40 MG Tablet Delayed Release 1 tablet Orally Once a day; Duration: 30 day(s) 04/13/2013 Not-Taking/PRN Rosuvastatin Calcium 10 MG Tablet Oral; Duration: 90 Active Aspir-81 81mg Active Pantoprazole Sodium 20 MG Tablet Delayed Release 1 tablet 1/2 to 1 hour before morning meal Orally Once a day; Duration: 90 days 01/30/2025 Not-Taking/PRN Dicyclomine HCl 20 MG Tablet TAKE 1 TABLET BY MOUTH EVERY 6 HOURFOR ABDOMINAL PAIN/CRAMPS/DISCOMFO RT; Duration: 90 days Active Multi Vitamin/Minerals Active Probiotic Active Albuterol Sulfate HFA Active Indapamide 1.25 MG Tablet Oral; Duration: 90 Active amLODIPine Besylate 10 MG Tablet Oral; Duration: 90 Active Immunizations Vaccine Route Administration Date Status Comme nts Influenza Unknown 05/22/2022 Refused Influenza Unknown 05/05/2023 Administered Influenza Unknown 05/03/2024 Administered Social History Social History Additional Details Category Social Info Options Details Miscellaneous: Marital status: single 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 Problems Problem Type SNOMED Code ICD Code Onset Dates Problem Status W/U Status Risk Notes Problem Colon cancer screening (025253854) Colon cancer screening (Z12.11) Active confirmed Problem Esophageal reflux (877185660) Esophageal reflux (K21.9) Active confirmed Problem Rectal bleeding (67786255) Rectal bleeding (K62.5) Active confirmed Problem Generalized abdominal pain (196975864) Generalized abdominal pain (R10.84) Active confirmed Problem Elevated liver enzymes level (014283986) Elevated LFTs (R79.89) Active confirmed Problem Gastroesophageal reflux disease without esophagitis (163898122) Gastroesophageal reflux disease without esophagitis (K21.9) Active confirmed Problem Fatty liver (582605247) Fatty liver (K76.0) Active confirmed Problem Computed tomography result abnormal (578182780) Abnormal CT scan, colon (R93.3) Active confirmed Problem Diarrhea (22554406) Diarrhea, unspecified type (R19.7) Active confirmed Problem Left sided abdominal pain (443373544) Left sided abdominal pain (R10.9) Active confirmed Problem Irritable bowel syndrome (58257519) Irritable bowel syndrome with constipation and diarrhea (K58.2) Active confirmed Vital Signs Temperature 97.1 degrees Fahrenheit 04/19/2025 Blood pressure diastolic 01 mm Hg 04/19/2025 Height 64 in 04/19/2025 Blood pressure systolic 001 mm Hg 04/19/2025 Weight 232.6 lbs 04/19/2025 BMI 39.92 kg/m2 04/19/2025 Encounters Encounter Location Date Provider Diagnosis [facility] [address] [place] [phone] 04/19/2025 Reyes Laws Jr Abdominal pain R10.9 [facility] [address] [place] [address] 01/30/2025 Reyes Laws Jr Fatty liver K76.0 ; Elevated LFTs R79.89 and Esophageal reflux K21.9 [facility] [address] [place] [address] 02/02/2025 Reyes Laws Jr [facility] [address] [facility] [place] [address] 03/10/2025 Reyes Laws Jr [facility] [address] [facility] [place] [address] 04/12/2025 Reyes Laws Jr [facility] [address] [facility] [place] [address] 04/13/2025 Reyes Laws Jr Generalized abdominal pain R10.84 [facility] [address] [facility] [place] [address] 04/20/2025 Reyes Laws Jr Elevated LFTs R79.89 [facility] [address] [facility] [place] [address] 04/11/2025 Reyes Laws Jr Assessments Encounter Date Diagnosis (ICD Code) Assessment Notes Treatment Notes Treatment Clinical Notes Section Notes 04/19/2025 Abdominal pain (ICD-10 - R10.9) 01/30/2025 Elevated LFTs (ICD-10 - R79.89) Currently, [...] if necessary. Today's visit was 30 minutes. 04/13/2025 Generalized abdominal pain (ICD-10 - R10.84) 04/20/2025 Elevated LFTs (ICD-10 - R79.89) 01/30/2025 Esophageal reflux (ICD-10 - K21.9) Currently, [...] Date BUN 01/30/2025 CREATININE 01/30/2025 LIVER PROFILE 01/30/2025 LIVER PROFILE 04/19/2025 LIVER PROFILE 04/11/2024 LIVER PROFILE 04/20/2025 LIPASE 04/11/2024 LIPASE 04/19/2025 CBC w/o DIFF 04/19/2025 CBC w/o DIFF 04/11/2024 CBC w/o DIFF 01/30/2025 OVA & PARASITES (O&P) 01/29/2024 PANCREATIC ELASTASE 01/29/2024 FECAL FAT QUAL 01/29/2024 CT ABD & PELVIS WITH CONTRAST 01/30/2025 XR GI SERIES 02/13/2012 US ABD 04/11/2024 US ABD 05/22/2022 C DIFFICILE RFLX PCR 01/29/2024 H pylori Ag Stool 04/13/2025 Future Test Test Name Order Date UPPER GI ENDOSCOPY 03/11/2017 COLONOSCOPY 03/11/2017 UPPER GI ENDOSCOPY 05/22/2022 COLONOSCOPY 05/22/2022 Next Appt Details Provider Name:Reyes garrido , 01/31/2026 09:00:00 AM, [address], [address], [place], [address], Insurance Providers Payer Name Payer Address Payer Phone Subscriber Number Group Number Insured Name Patient Relationship to Insured Coverage Start Date Coverage End Date [facility] [address] [place] [phone] [id number] [id number] Y, MERVAT Self - patient is the insured Medical [...]
[2025-06-27 21:42] VITALS: BP 135/71; PULSE 74; RESP 16; TEMP 36.5; O2SAT 96
[2025-06-28] MEDS: iohexoL 350 MG/ML 100 ML INFUS..BTL 85 ML IV (00:23)
[2025-06-28 00:32] VITALS: BP 121/70; PULSE 82; RESP 16; TEMP 36.6; O2SAT 95
[2025-06-28] MEDS: Lactated Ringers 1,000 ML 999 ML IV (01:06)
[2025-06-28 02:45] VITALS: BP 135/74; PULSE 71; RESP 18; TEMP 36.5; O2SAT 96
[2025-06-28 02:58] VITALS: BP 135/74; PULSE 71; RESP 18; TEMP 36.5; O2SAT 96
== END 2025-06-28 02:59 | disposition home or self-care (01) ==
PROVIDERS: Physician Assistant; Emergency Provider Emergency Medicine; PCP Internal Medicine
DX: K52.9 Noninfective gastroenteritis and colitis, unspecified (principal); E86.0 Dehydration; I10 Essential (primary) hypertension; Z87.19 Personal history of other diseases of the digestive system; Z79.899 Other long term (current) drug therapy
CPT/HCPCS: 36415; 74177; 80053; 81003; 83690; 85025; 87637; 96361; 96374; 96375; 99284; 99285; J1885; J2405; J7120; Q9967

== ENCOUNTER → 2025-06-28 00:01 | Outpatient (BNV) | payer OTHER, SELFPAY | PROVIDERS: Emergency Provider Emergency Medicine; PCP Internal Medicine; Visit Provider Radiology Diagnostic Radiology | DX: K76.0 Fatty (change of) liver, not elsewhere classified (principal) | CPT/HCPCS: 74177 ==

== ENCOUNTER 2025-07-07 | Outpatient (REF) | payer OTHER, SELFPAY ==
--- OUTSIDE RECORDS SUMMARY | 2024-03-07 04:00 | XMS_ITS ---
Author Organization [facility] Address [address] [facility] [address] [place] [phone] Care Team Providers Care Train Attendant Name Role Phone Jose Geiger MD Primary Care Provider Reyes Cm Jr [phone] REASON FOR VISIT Patient presents today for gerd Encounters Encounter Location Date Provider Diagnosis [facility] [address] [place] [phone] 03/07/2024 Reyes Laws Jr Plan Of Treatment Next Appt Details Provider Name:Reyes garrido Jr, 01/31/2026 09:00:00 AM, [address] [place] [address], [address], [place], [address], Progress Notes * MERVAT ASHBYDOB:[birth year] (64 yo M)Acc No.[id number]:03/07/2024 Progress Notes Patient: Lowell APPIAHEdgar MERVAT Provider: Lowell Laws MD :1960 A ge:63 Y S ex:Male Date:03/07/2024 Address:[address] [place], [place] [id number] Pcp:Jose Geiger MD Subjective: * Chief Complaints: * P atient presents today for gerd * The named appointment provid er may or may not be the originator of this progress note, and it is not deemed complete until electronically signed by the appointment provider. Sign off status: Pending * Provider: Lowell Laws MD Date: 0 03/07/2024 Generated for Aimee schmitt/Tj/Caleitting on: 1 09/08/2024 09:27 AM EST
--- OUTSIDE RECORDS SUMMARY | 2025-04-19 06:20 | XMS_ITS ---
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 Vital Signs Temperature 97.1 degrees Fahrenheit 04/19/20 25 Blood pressure systolic 001 mm Hg 04/19/20 25 Blood pressure diastolic 01 mm Hg 025 Height 64 in 04/19/2025 Weight 232.6 lbs 04/19/2025 BMI 39.92 kg/m2 04/19/2025 Encounters Encounter Location Date Provider Diagnosis [facility] [address] [place] [address] 04/19/2025 Reyes Laws Jr Abdominal pain R10.9 Assessments Encounter Date Diagnosis (ICD Code) Assessment Notes Treatment Notes Treatment Clinical Notes Section Notes 04/19/2025 Abdominal pain (ICD-10 - R10.9) Plan Of Treatment Pending Test Test Name Order Date LIVER PROFILE 04/19/2025 LIPASE 04/19/2025 CBC w/o DIFF 04/19/2025 Next Appt Details Provider Name:Reyes garrido Jr, 01/31/2026 09:00:00 AM, [address], [address], [place], [id number], Progress Notes * MERVAT ASHBYDOB:[birth year] (64 yo M)Acc No.[id number]:04/19/2025 Progress Notes Patient: MERVAT DAWKINS Provider: Lowell Laws MD :[id number] A ge:64 Y S ex:Male Date:04/19/2025 Address:[address] [place], [place] [id number] Pcp:Jose Geiger MD Subjective: * Chief Complaints: * P atient presents today for burping, not feeling well. * Medical History: Colonoscopy 07/04, lymphoid polyp, ten-year followup Gastroesophageal reflux disease, EGD 07/03, no HP/BE Diverticulitis Hypertension Hyperlipidemia Asthma Cardiac catheterization at [facility], no significant disease per patient Hypothyroidism [...] M iscellaneous: M arital status: single. 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 Social History Verified. * Medications: T [...] 1 tablet Orally Once a day NAC [place] 3 Valsartan Fiber Medication List reviewed and reconciled with the patientDiscontinued metFORMIN HCl 1000 MG Tablet 1 tablet with a meal Orally Once a day Discontinued Lisinopril 2.5 MG Tablet 1 tablet Orally Once a day Discontinued NAC Discontinued [place] 3 Discontinued Valsartan Discontinued Fiber Medication List [...] ietary management education, guidance, and counseling, B [place] management provided Y es. Billing Information: * Procedure Codes: * The named appointment provid er may or may not be the originator of this progress note, and it is not deemed complete until electronically signed by the appointment provider. Sign off status: Pending * Provider: Lowell Laws MD Date: 1 Generated for Aimee schmitt/Tj/Caleitting on: 09/08/2024 09:28 AM EST
--- OUTSIDE RECORDS SUMMARY | 2025-07-08 09:27 | XMS_ITS | Clinical Summary ---
Author Organization [facility] Address [address] [place] [address] Care Team Providers Care Salvager Name Role Phone Unknown Primary Care Provider [...] to complete this topic Insurance [employer] HMO/POS Member Subscriber Plan / Payer (Ef fective 2015-Present) Name:JonasNancy stanleynn Relation to Subscriber:Self Name:Jose Odom Payer ID:[id number] ([facility]) Type:Not on file Address: [address] [place] [address] [employer] HMO/POS Member Subscriber Plan / Payer (Ef fective 2015-Present) Name:Ana Mariajorge luislizeth Jose Relation to Subscriber:Self Name:Jonassumitjesus Jose Payer ID:[id number] ([facility]) Type:Not on file Address: [address] [place] [address] Advance Directives * Full Code (Latest Code Status on File) Date Activated Date Inactivated Comments 09/19/2016 2:06 PM 09/22/2016 8:01 PM Care Teams Salvager Relationship Specialty Start Date End Date Unknown Unknow Provider Address PCP - General 09/19/16
--- OUTSIDE RECORDS SUMMARY | 2025-07-08 09:27 | XMS_ITS | Encounter Summary ---
Author Organization [facility] Prior to 05/13/2024 Address [address] [place] [address] Care Team Providers Care Foreign Food Cook Specialty Name Role Phone Jose Geiger MD Primary Care Provider Reason for Visit * Reason Onset Date Comments Appointment Cancelled 03/25/2024 Encounter Details Date Type Department Care Team Description 03/25/2024 Telephone Radiology - [address] [address] Radiology, Authorizing Appointment Cancelled Social History Tobacco Use Types Packs/Day Years Used Date Smoking Tobacco: Former Cigarettes 0.5 20 1 - 07/13/2001 Smokeless Tobacco: Former Alcohol Use Standard Drinks/Week Comments Yes 0 (1 standard drink = 0.6 oz pure alcohol) few on a weekend couple times per month Sex Assigned at Date Recorded Not on file Job Start Date Occupation Industry Not on file Not on file Not on file documented as of this encounter Miscellaneous Notes * Telephone Encounter - Lisa Adan - 03/25/2024 8:[address] Geiger, there is an order for this pt to have a leg u/s . This cannot be done here per the diagnosis. Please review and advise thankyou documented in this encounter Plan of Treatment Not on file documented as of this encounter Visit Diagnoses Not on filedocumented in this encounter Care Teams Foreign Food Cook Specialty Relationship Specialty Start Date End Date Jose Geiger MD [address] [place] [address] PCP - General Internal Medicine 01/03/20 documented as of this encounter
--- OUTSIDE RECORDS SUMMARY | 2025-07-08 09:27 | XMS_ITS | Encounter Summary ---
Author Organization [facility] Prior to 05/13/2024 Address [address] [place] [address] Care Team Providers Care Accountant Cost Name Role Phone Jose Geiger MD Primary Care Provider [phone] Reason for Visit * Reason Comments E-prescribe Rx Request Encounter Details Date Type Department Care Team Description 04/05/2021 Refill Adult Medicine [facility] [address] [place] [address] [phone] Jose Geiger MD [address] [place] [phone] E-prescribe Rx Request Social History Tobacco Use Types Packs/Day Years [...] encounter Miscellaneous Notes * Telephone Encounter - Sunitha Torre M.A. - 04/09/2021 11:10 AM EDT Faxed to pharmacy * Telephone Encounter - Brittney Edmond - 04/08/2021 9:14 AM EDT Ada 01/16/2021 Ov 04/15/21 Lab Results Component Value Date NA 140 02/13/2021 K 3.7 02/13/2021 CO2 30 02/13/2021 CL 105 02/13/2021 BUN 19 02/13/2021 CREAT 0.93 02/13/2021 GLU 115 02/13/2021 CA 9.1 02/13/2021 GFR > 60 02/13/2021 * Telephone Encounter - Ruby Villa - 04/08/2021 9:11 AM EDT Patient would like script to be: E-PRESCRIBED/FAXED TO PHARMACY WHEN WAS THE PATIENT'S LAST APPOINTMENT IN ADULT MEDICINE? 01/16/2021 WHEN WAS THE LAST TIME THE PATIENT SAW THEIR PCP? Same as above Does patient have an upcoming appointment? Yes 04/15/2021 (THE MEDICATION REQUESTED IS ON THE MED LIST ABOVE) All of the medications requested were on the CURRENT MEDS list Did you check the Pharmacy information above?: YES Patient wants: 90 -day supply Is this a mail order prescription request ? NO If the refill is from a FAXED refill request what is the RX # listed on the fax? N/A Patients current insurance carrier is: Payor: [employer] / Plan: Wedding Reality[employer] $20 [place] 1 / Product Type: HMO [id number] documented in this encounter Plan of Treatment Not on file documented as of this encounter Visit Diagnoses Not on filedocumented in this encounter Care Teams Accountant Cost Relationship Specialty Start Date End Date Jose Geiger MD [address] [place] [phone] PCP - General Internal Medicine 01/03/20 documented as of this encounter
--- OUTSIDE RECORDS SUMMARY | 2025-07-08 09:27 | XMS_ITS | Patient Health Record ---
Author Organization [facility] Address [address] [place] [address] Care Team Providers Care Bottler Helper Name Role Phone Jose Geiger MD Primary Care Provider Reyes Cm Jr Unavailable [phone] Allergies Allergen (clinical drug ingredient) Drug/Non [...] Diff Reviewed date:02/02/2025 09:26:11 AM Interpretation: Performing Lab:[facility], [address] [place] [phone] Notes/Report: White Blood Count 6.1 4.8-10.8 X10*3/uL [...] NRBC Abs Auto 0.000 0.0-0.012 X10*3/uL N Creatinine GFR POC Reviewed date:03/09/2025 09:26:32 AM Interpretation: Performing Lab:[facility], [address] [place] [phone] Notes/Report: [id number] 0.95 >60 0807 HO.THEBODA Creatinine POC 1.0 0.5-1.4 mg/dL N GFR POC > 60 Chronic Kidney Disease: Estimated GFR < 60 mL/min/1.73m2 Severe Kidney Disease: Estimated GFR < 15 mL/min/1.73m2 CT abdomen pelvis w con Reviewed date:03/10/2025 03:16:18 PM Interpretation: Performing Lab: Notes/Report: [address] [address] [address] Scan Report Signed Patient: Mervat Ashby MR#: [id number] : 1960 Acct:[id number] Age/Sex: 64 / M ADM Date: 03/09/25 Loc: HO.CT Attending Dr: Reyes Laws MD Ordering Physician: Reyes Laws MD Date of Service: 03/09/25 Procedure(s): CT abdomen pelvis w IV con Accession Number(s): [id number] cc: Reyes Laws MD; Jose Geiger III, MD Report Number: [id number]: Total DLP = 837.00 mGy-cm EXAMINATION: CT [...] E Burns MD 03/09/2025 09:02 AM EDT RP Dictated By: Jose E Smith MD Signed By: <Electronically signed by Jose E Morales MD in OV> 03/09/25901 DD/ 9 TD/TT: 03/09/2548 Business Analytics Director: Creatinine Reviewed date:02/02/2025 09:24:44 AM Interpretation: Performing Lab:[facility], [address] [place] [phone] Notes/Report: Creatinine 0.81 0.5-1.4 mg/dL N Estimated Glomerular Filt Rate > 60 Chronic Kidney Disease: Estimated GFR < 60 mL/min/1.73m2 Severe Kidney Disease: Estimated GFR < 15 mL/min/1.73m2 Blood Urea Nitrogen Reviewed date:02/02/2025 09:24:54 AM Interpretation: Performing Lab:[facility], [address] [place] [phone] Notes/Report: Blood Urea Nitrogen 16 9-16 mg/dL N Liver Panel Reviewed date:02/02/2025 09:26:02 AM Interpretation: Performing Lab:[facility], [address] [place] [phone] Notes/Report: Bilirubin Total 0.7 0.0-1.0 mg/dL N Bilirubin Direct 0.3 0.0-0.5 mg/dL N Aspartate Amino Transferase 30 5-37 U/L N Alanine Aminotransferase 78 0-40 U/L H Total Protein 6.6 6.5-8.0 g/dL N Albumin Level 4.4 3.5-5.0 g/dL N Alkaline Phosphatase 53 39-117 U/L N Complete Blood Count no Diff Reviewed date:04/20/2025 08:23:18 AM Interpretation: Performing Lab:[facility], [address] [place] [phone] Notes/Report: White Blood Count 9.0 4.8-10.8 X10*3/uL [...] Panel Reviewed date:04/20/2025 08:23:08 AM Interpretation: Performing Lab:[facility], [address] [place] [phone] Notes/Report: Bilirubin Total 0.8 0.0-1.0 mg/dL N Bilirubin Direct 0.3 0.0-0.5 mg/dL N Aspartate Amino Transferase 43 5-37 U/L H Alanine Aminotransferase 104 0-40 U/L H Total Protein 7.5 6.5-8.0 g/dL N Albumin Level 5.1 3.5-5.0 g/dL H Alkaline Phosphatase 59 39-117 U/L N Lipase Reviewed date:04/20/2025 08:23:01 AM Interpretation: Performing Lab:[facility], [address] [place] [phone] Notes/Report: Lipase 30 8-78 U/L N Reason [...] Options Details Miscellaneous: Marital status: single 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 Problems Problem Type SNOMED Code ICD Code Onset Dates Problem Status W/U Status Risk Notes Problem Colon cancer screening (904433172) Colon cancer screening (Z12.11) Active confirmed Problem Esophageal reflux (906467713) Esophageal reflux (K21.9) Active confirmed Problem Rectal bleeding (79598932) Rectal bleeding (K62.5) Active confirmed Problem Generalized abdominal pain (282301591) Generalized abdominal pain (R10.84) Active confirmed Problem Elevated liver enzymes level (888008579) Elevated LFTs (R79.89) Active confirmed Problem Gastroesophageal reflux disease without esophagitis (106294765) Gastroesophageal reflux disease without esophagitis (K21.9) Active confirmed Problem Fatty liver (478252931) Fatty liver (K76.0) Active confirmed Problem Computed tomography result abnormal (756926651) Abnormal CT scan, colon (R93.3) Active confirmed Problem Diarrhea (90316578) Diarrhea, unspecified type (R19.7) Active confirmed Problem Left sided abdominal pain (759364383) Left sided abdominal pain (R10.9) Active confirmed Problem Irritable bowel syndrome (98012286) Irritable bowel syndrome with constipation and diarrhea (K58.2) Active confirmed Vital Signs Temperature 97.1 degrees Fahrenheit 04/19/2025 Blood pressure diastolic 01 mm Hg 04/19/2025 Height 64 in 04/19/2025 Blood pressure systolic 001 mm Hg 04/19/2025 Weight 232.6 lbs 04/19/2025 BMI 39.92 kg/m2 04/19/2025 Encounters Encounter Location Date Provider Diagnosis [facility] [address] [place] [phone] 04/19/2025 Reyes Laws Jr Abdominal pain R10.9 [facility] [address] [place] [address] 01/30/2025 Reyes Laws Jr Fatty liver K76.0 ; Elevated LFTs R79.89 and Esophageal reflux K21.9 [facility] [address] [facility] [place] [address] 02/02/2025 Reyes Laws Jr [facility] [address] [facility] [place] [address] 03/10/2025 Reyes Laws Jr [facility] [address] [facility] [place] [address] 04/12/2025 Reyes Laws Jr [facility] [address] [place] [address] [address] 04/13/2025 Reyes Laws Jr Generalized abdominal pain R10.84 [facility] [address] [facility] [place] [address] 04/20/2025 Reyes Laws Jr Elevated LFTs R79.89 [facility] [address] [facility] [place] [address] 06/28/2025 Reyes Laws Jr [facility] [address] [place] [address] 06/30/2025 Reyes Laws Jr Diarrhea, unspecified type R19.7 [facility] [address] [place] [address] 07/05/2025 Reyes Laws Jr [facility] [address] [place] [address] 04/11/2025 Reyes Laws Jr Assessments Encounter Date [...] R10.84) 04/20/2025 Elevated LFTs (ICD-10 - R79.89) 06/30/2025 Diarrhea, unspecified type (ICD-10 - R19.7) 01/30/2025 Esophageal reflux (ICD-10 - K21.9) Currently, [...] w/o DIFF 04/11/2024 CBC w/o DIFF 01/30/2025 STOOL WBC 06/30/2025 OVA & PARASITES (O&P) 01/29/2024 PANCREATIC ELASTASE 06/30/2025 PANCREATIC ELASTASE 01/29/2024 FECAL FAT QUAL 01/29/2024 FECAL FAT QUAL 06/30/2025 CT ABD & PELVIS WITH CONTRAST 01/30/2025 XR GI SERIES 02/13/2012 US ABD 04/11/2024 US ABD 05/22/2022 C DIFFICILE RFLX PCR 01/29/2024 H pylori Ag Stool 04/13/2025 GI PANEL 06/30/2025 Future Test Test Name Order Date UPPER GI ENDOSCOPY 03/11/2017 COLONOSCOPY 03/11/2017 UPPER GI ENDOSCOPY 05/22/2022 COLONOSCOPY 05/22/2022 Next Appt Details Provider Name:Reyes Perez Nitin garrido , 01/31/2026 09:00:00 AM, [address] [facility], [address], [place], [address], Insurance Providers Payer Name Payer Address Payer Phone Subscriber Number Group Number Insured Name Patient Relationship to Insured Coverage Start Date Coverage End Date [facility] [address] [place] [phone] [id number] MERVAT CANALES Self - patient is the insured Medical (General) History Medical History History ICD Code Colonoscopy 07/04, lymphoid polyp, ten-y ear followup Gastroesophageal reflux disease, EGD , no HP/BE Diverticulitis Hypertension Hyperlipidemia Asthma Cardiac catheterization at [facility], no significant disease per patient hypothyroidism type II diabetes Surgical History Surgery Date(Month/Year) gall bladder removed 12/03 Hospitalization History Reason Date(Month/Year) twice in ER, for stomach pain.
--- OUTSIDE RECORDS SUMMARY | 2025-07-08 09:27 | XMS_ITS | Clinical Summary ---
Author Organization [facility] Prior to 05/13/2024 Address [address] [place] [address] Care Team Providers Care Direct Support Professional Caregiver Name Role Phone Jose Geiger MD Primary Care Provider [phone] Allergies Active Allergy Reactions Severity Noted Date Comments Na Wqjrhtnz-Sqpjbtazuuivlbcp-D rimethoprim 12/24/2009 unsure Lisinopril Cough 08/23/2018 Metoprolol 10/09/2016 Causes asthma exacerbation Medications Medication Sig Dispensed Refills Start Date End Date Status Aspirin (ASPIR-81 OR) Take by mouth. 0 Active Multiple Vitamins-Minerals (MULTIVITAMIN OR) Take by mouth. 0 Act tej ALBUTEROL SULFATE 108 (90 Base) MCG/ACT Aero Soln INHALE 2 PUFFS BY MOUTH INTO THE LUNGS EVERY 4 HOURS NEEDED FOR WHEEZING OR SHORTNESS OF BREATH (EMERGENCY USE ONLY). 54 g 1 08/21/2023 Active indapamide (LOZOL) 1.25 MG tablet Take 1 Tablet by mouth daily. 90 Tablet 1 11/18/2023 Active levothyroxine (SYNTHROID, LEVOTHROID) 75 MCG tablet Take 1 Tablet by mouth daily. 90 Tablet 1 11/18/2023 Active pantoprazole (PROTONIX) 40 MG tablet TAKE 1 TABLET BY MOUTH DAILY 90 Tablet 3 01/08/2024 Active Fiber Adult Gummies 2 g Chew Tab Take by mouth. 0 Active Polyethylene Glycol 3350 (MIRALAX OR) Take by mouth. 0 Act tej [place]-3 Fatty Acids (OMEGA 3 OR) Take by mouth. 0 Active ibuprofen (ADVIL,MOTRIN) 800 MG tablet Take 1 Tablet by mouth every 8 hours as needed for Pain for up to 30 days. 60 Tablet 0 03/24/2024 Active lisinopril (PRINIVIL,ZESTRIL) 2.5 MG tablet Take 1 Tablet by mouth daily for 180 days. 90 Tablet 1 03/24/2024 Active losartan (COZAAR) 100 MG tablet TAKE ONE-HALF TABLET BY MOUTH DAILY 45 Tablet 1 05/11/2024 Active rosuvastatin (CRESTOR) 10 MG tablet TAKE 1 TABLET BY MOUTH AT BEDTIME 90 Tablet 1 05/11/2024 Active amlodipine (NORVASC) 10 MG tabletIndications:HT N (hypertension), benign,High cholesterol TAKE 1 TABLET BY MOUTH DAILY 90 Tablet 1 05/11/2024 Active Active Problems Problem Noted Date COVID-19 06/22/2022 Obstructive sleep apnea severe AHI 53 Overview: [facility] Home sleep test 07/24/2021; weight 245; BMI 42; AHI 53, AI 17, HI 35. 2 unclassified apneas, 144 obstructive apneas, 2 central apneas, 302 hypopneas. Average oxygen saturation 92% with oxygen harinder 84%. Obstructive sleep apnea-severe with mostly hypopneas and obstructive apneas without nocturnal hypoxemia based on 2021 home sleep test. Subclinical hypothyroidism 02/26/2021 Prediabetes 02/26/2021 Overview: A1c of 6.4%. Atypical chest pain 01/03/2020 Overview: Normal coronary angiography. Reactive airway disease 06/19/2017 Lung nodule-repeat CT in one year (2018) 02/27/2017 GERD (gastroesophageal reflux disease)/ neg egd 201107/06/2012 Diverticular disease/ colonoscopy 2010 1 09/06/2011 Morbid obesity 07/21/2011 IBS (irritable bowel syndrome) 2 HTN (hypertension), benign 07/02/2009 High cholesterol 07/29/2007 Generalized anxiety disorder 07/29/2007 Esophageal spasm Resolved Problems Problem Noted Date Resolved Date Abnormal CT of the abdomen 02/27/201701/02 IFG (impaired fasting glucose) 10/09/2016 0 02/26/2021 Sinusitis 07/29/2007 11/19/2016 Cough 07/29/2007 11/19/2016 Immunizations Name Administration Dates Next Due COVID-19 (Pfizer) 03/01/2021,02/08/2021 Influenza (> 6 Months) 03/24/2024,2016,03/25/2013,05/12,04/14/2011,05/13/2010,04/04/2009 Influenza Vaccine-preservati ve Free-quadrivalent 4 Years 04/15/2023,04/15/2021,05/05/2019,03/29 Pneumoccoccal(Adult) Polysac charide PPSV23 03/29/2018 Shingrix (Patient reported) 09/11/2020 Shingrix (Recombinant zoster vaccine) 11/10/2020 ,09/11/2020 TD (STATE SUPPLIED FOR ADULT S AND CHILDREN) 03/29/2018 Tdap 08/17/2007 Family History Medical History Relation Name Comments CA Prostate Brother 1 Cholesterol Level Brother 1 eye problem Brother 1 choroidoremia mental handicap Brother 2 mental handicap Brother 3 Diabetes Father CHF Maternal Grandfather CHF Maternal Grandmother Cataract Mother Thyroid Disorder Mother Cholesterol Level Paternal Grandfather Blindness Negative Hx CA Colon Negative Hx Glaucoma Negative Hx Macular Degeneration Negative Hx Strabismus Negative Hx Relation Name Status Comments Brother 1 [...] file Not on file Not on file Last Filed Vital Signs Vital Sign Reading Time Taken Comments Blood Pressure 132/90 03/24/2024 2:57 PM EDT provider will recheck Pulse 74 03/24/2024 2:57 PM EDT Temperature 36.5 C (97.7 F) 03/24/2024 2:57 PM EDT Respiratory Rate 16 03/24/2024 2:57 PM EDT Oxygen Saturation 97% 01/06/2022 9:3 1 AM EDT Inhaled Oxygen Concentration - - Weight 112.5 kg (248 lb) 03/24/2024 2:5 7 PM EDT Height 162.6 cm (5' 4 ) 03/24/2024 2:57 PM EDT Body Mass Index 42.57 03/24/2024 2:57 PM EDT Plan of Treatment Health Maintenance Due Date Last Done Comments BMI CHECK/ADVISE 07/13/2024 04/15/2023, 10/2022 (Completed), 04/14/2022, Additional history exists Covid-19 Vaccine (3 - 2022-2 4 season) 2025 03/01/2021, 02/08/2021 INFLUENZA (#1) 2025 03/24/2024, 10/2022, 05/13/2022, Additional history exists BASELINE HEALTH EXAM 40-64 04/16/202504/16, 04/15/2023, 07/01/2021, Additional history exists COLON CANCER SCREENING 04/16/2027 7 (External Completion), 04/16/2017, 10/27/2012 (External Completion of test per patient (Patient reports normal results)) PNEUMOCOCCAL VACCINE FOR HIG H RISK PATIENTS (#2) 10/21/2027 03/29/2018 DTAP/TDAP/TD (3 - Td or Tdap) 03/29/2028 03/29/2018, 08/17/2007 CHOLESTEROL SCREENING 11/17/2028 11/18/2023 , 04/16/2023, 10/14/2022, Additional history exists HEPATITIS C SCREENING Completed 03/05/2013 SHINGLES VACCINE Completed 11/10/2020, 08/2020, 09/11/2020 Care Teams Direct Support Professional Caregiver Relationship Specialty Start Date End Date Jose Geiger MD [address] [place] [address] PCP - General Internal Medicine 01/03/20
--- OUTSIDE RECORDS SUMMARY | 2025-07-08 09:27 | XMS_ITS | Encounter Summary ---
Author Organization [facility] Prior to 05/13/2024 Address [address] [place] [address] Care Team Providers Care Body Work Auto Trimmer Name Role Phone Jose Geiger MD Primary Care Provider [phone] Reason for Visit * Reason Onset Date Comments DME Request 09/24/2021 Encounter Details Date Type Department Care Team Description 09/24/2021 Telephone Pulmonology - [place] [address] [facility] [address] [place] [phone] [facility] [address] [place] [address] DME Request Social History Tobacco Use Types Packs/Day [...] encounter Miscellaneous Notes * Telephone Encounter - Misty Goncalves - 09/24/2021 11:08 AM EDT [facility] documented in this encounter Plan of Treatment Not on file documented as of this encounter Visit Diagnoses Not on filedocumented in this encounter Care Teams Body Work Auto Trimmer Relationship Specialty Start Date End Date Jose Geiger MD [address] [place] [address] PCP - General Internal Medicine 01/03/20 documented as of this encounter
--- OUTSIDE RECORDS SUMMARY | 2025-07-08 09:27 | XMS_ITS | Encounter Summary ---
Author Organization [facility] [employer] [facility] Prior to 05/13/2024 Address [address] [place] [address] Care Team Providers Care Dispatcher Service Or Work Name Role Phone Jose Geiger MD Primary Care Provider [phone] Encounter Details Date Type Department Care Team Description 12/15/2023 Laborer Plumbing Report Medical Records [address] [place] [address] [facility] Social History Tobacco Use Types Packs/Day Years [...] on file documented as of this encounter Plan of Treatment Not on file documented as of this encounter Visit Diagnoses Not on filedocumented in this encounter Care Teams Dispatcher Service Or Work Relationship Specialty Start Date End Date Jose Geiger MD [address] [place], [place] [phone] PCP - General Internal Medicine 01/03/20 documented as of this encounter
--- OUTSIDE RECORDS SUMMARY | 2025-07-08 09:27 | XMS_ITS | Encounter Summary ---
Author Organization [facility] [employer] [facility] Prior to 05/13/2024 Address [address] [place] [address] Care Team Providers Care Taker Off Braker Machine Name Role Phone Jose Geiger MD Primary Care Provider [phone] Encounter Details Date Type Department Care Team Description 08/26/2023 President Ceo & Founder Report Medical Records [address] [place] [address] [facility] Social History Tobacco Use Types Packs/Day Years [...] on filedocumented in this encounter Care Teams Taker Off Braker Machine Relationship Specialty Start Date End Date Jose Geiger MD [address] [place], [place] [phone] PCP - General Internal Medicine 01/03/20 documented as of this encounter
--- OUTSIDE RECORDS SUMMARY | 2025-07-08 09:27 | XMS_ITS | Encounter Summary ---
Author Organization [facility] Prior to 05/13/2024 Address [address] [place] [address] Care Team Providers Care Poultry Farmer Name Role Phone Jose Geiger MD Primary Care Provider [phone] Reason for Visit * Reason Onset Date Comments LAB WORK 06/30/2023 REFERRAL 06/30/2023 Encounter Details Date Type Department Care Team Description 06/30/2023 Pt. Non Urgent Medical Question Adult Medicine [address] [address] Mary Remy PA-C [address] [place] [address] Social History Tobacco Use Types Packs/Day Years [...] encounter Miscellaneous Notes * Telephone Encounter - Vashti Lawrence M.A. - 06/30/2023 4:16 PM ESTFrom: Jose Odom To: Ryan Remy Sent: 06/30/2023 4:03 PM EST Subject: Referrals Elizabeth, I have never heard from the Minister Helper or the Urologist referrals, any chance I can get new referrals please, I want to start exercising and want to make sure my heart is up to the task, and also want to get screened for Prostate Cancer? Thank you documented in this encounter Plan of Treatment Not on file documented as of this encounter Visit Diagnoses Not on filedocumented in this encounter Care Teams Poultry Farmer Relationship Specialty Start Date End Date Jose Geiger MD [address] [place] [address] PCP - General Internal Medicine 01/03/20 documented as of this encounter
--- OUTSIDE RECORDS SUMMARY | 2025-07-08 09:27 | XMS_ITS | Encounter Summary ---
Author Organization [facility] [employer] [facility] Prior to 05/13/2024 Address [address] [place] [address] Care Team Providers Care Peer Specialist Name Role Phone Jose Geiger MD Primary Care Provider [phone] Encounter Details Date Type Department Care Team Description 10/25/2021 Political Science Professor Report Medical Records [address] [place] [address] Doug Herron MD Social History Tobacco Use Types Packs/Day Years [...] file Not on file Not on file COVID-19 Exposure Response Date Recorded In the last 10 days, have lee u been in contact with someone who was confirmed or suspected to have Coronavirus/COVID-19? Yes 10/01/2021 3:08 PM EDT documented as of this encounter Plan of Treatment Not on file documented as of this encounter Visit Diagnoses Not on filedocumented in this encounter Care Teams Peer Specialist Relationship Specialty Start Date End Date Jose Geiger MD [address] [place] [address] PCP - General Internal Medicine 01/03/20 documented as of this encounter
--- OUTSIDE RECORDS SUMMARY | 2025-07-08 09:27 | XMS_ITS | Encounter Summary ---
Author Organization [facility] [employer] [facility] [employer] Prior to 05/13/2024 Address [address] [place] [address] Care Team Providers Care Principal Hardware Architect Name Role Phone Jose Geiger MD Primary Care Provider [phone] Encounter Details Date Type Department Care Team Description 03/05/2023 Tapper Balance Wheel Screw Hole Report Medical Records [address] [place] [address] Reyes Laws MD Social History Tobacco Use Types Packs/Day [...] was confirmed or suspected to have Coronavirus/COVID-19? No / Unsure 02/05/2023 8:20 AM EDT documented as of this encounter Plan of Treatment Not on file documented as of this encounter Visit Diagnoses Not on filedocumented in this encounter Care Teams Principal Hardware Architect Relationship Specialty Start Date End Date Jose Geiger MD [address] [place] [address] PCP - General Internal Medicine 01/03/20 documented as of this encounter
--- OUTSIDE RECORDS SUMMARY | 2025-07-08 09:28 | XMS_ITS | Encounter Summary ---
Author Organization [facility] Prior to 05/13/2024 Address [address] [place] [address] Care Team Providers Care Lead Esthetician Name Role Phone Jose Geiger MD Primary Care Provider [phone] Reason for Visit * Reason Onset Date Comments Bowels, Changes In 04/11/2022 Encounter Details Date Type Department Care Team Description 04/11/2022 Telephone Gastroenterology [facility] [address] [facility] [address] [place] [address] Yong Manzano PA-C Bowels, Changes In Social History Tobacco Use Types Packs/Day Years [...] Recorded In the last 10 days, have yo u been in contact with someone who was confirmed or suspected to have Coronavirus/COVID-19? No / Unsure 04/14/2022 3:19 PM EDT documented as of this encounter Miscellaneous Notes * Telephone Encounter - Funmi Rosales - 04/11/2022 4:07 PM EDT Let patient know and he has picked it up. * Telephone Encounter - Yong Manzano PA-C - 04/11/2022 3:32 PM EDT Sorry my error yes you right I saw him in September 2021. If he wants the Bentyl, we can order that forhim. Prescription has been sent to [facility] in [place] * Telephone Encounter - Funmi Rosales - 04/11/2022 2:16 PM EDT Patient was seen 10/01/21. He feels like the food is just sitting on top and not digesting it. He states dicyclomine works. * Telephone Encounter - Yong Manzano PA-C - 04/11/2022 2:08 PM EDT Patient has not been seen in 2 years in the office and do not feel comfortable with ordering medications for him. If he is not having full evacuation, usually we try to use fiber and that might help with his bowel movements. He can also check in with his primary for further advice. Patient can follow-up with us but needs to be seen in the office due to his symptoms. * Telephone Encounter - Funmi Rosales - 04/11/2022 2:05 PM EDT Please advise, thank you. * Telephone Encounter - Sunitha Morales - 04/11/2022 1:10 PM EDT Patient c/o not having a productive bm in 6 days going small amounts and quite lose along with cramping, pressure, bloating and spasms. He denies fever chills and vomitting however he has been experiencing mild nausea. Patient has also put in a call to pcp who then advised him to call here. Please advise [phone] documented in this encounter Plan of Treatment Not on file documented as of this encounter Visit Diagnoses Not on filedocumented in this encounter Care Teams Lead Esthetician Relationship Specialty Start Date End Date Jose Geiger MD [address] [place] [address] PCP - General Internal Medicine 01/03/20 documented as of this encounter
--- OUTSIDE RECORDS SUMMARY | 2025-07-08 09:28 | XMS_ITS | Encounter Summary ---
Author Organization [facility] Prior to 05/13/2024 Address [address] [place] [address] Care Team Providers Care Auto Mechanic Apprentice Name Role Phone Jose Geiger MD Primary Care Provider [phone] Reason for Visit * Reason Onset Date Comments Testing 07/18/2021 pt has question about type of sleep study that was ordered Encounter Details Date Type Department Care Team Description 07/18/2021 Pt. Non Urgent Medical Question Adult Medicine [address] [id number] Jose Geiger MD [address] [place] [address] [id number] Social History Tobacco Use Types Packs/Day Years [...] Exposure Response Date Recorded In the last month, have you been in contact with someone who was confirmed or suspected to have Coronavirus / COVID-19? No / Unsure 07/10/2021 3:23 PM EST documented as of this encounter Miscellaneous Notes * Telephone Encounter - Sunitha Ferrell M.A. - 07/18/2021 1:24 PM ESTFrom: Jose Odom To: Qing Gieger Sent: 07/18/2021 1:15 PM EST Subject: Sleep Study Dr. Geiger, Received call from Sleep Study center, it's only for a 24-hour study, that is what I had last time with inconclusive results, is this what you want me to or did we want a more comprehensive study? Thank you documented in this encounter Plan of Treatment Not on file documented as of this encounter Visit Diagnoses Not on filedocumented in this encounter Care Teams Auto Mechanic Apprentice Relationship Specialty Start Date End Date Jose Geiger MD [address] [place] [address] PCP - General Internal Medicine 01/03/20 documented as of this encounter
--- OUTSIDE RECORDS SUMMARY | 2025-07-08 09:28 | XMS_ITS | Encounter Summary ---
Author Organization [facility] Prior to 05/13/2024 Address [address] [place] [address] Care Team Providers Care Print Developer Automatic Name Role Phone Jose Geiger MD Primary Care Provider [phone] Reason for Visit * Reason Onset Date Comments Provider Call Back 04/14/2022 Encounter Details Date Type Department Care Team Description 04/14/2022 Pt. Non Urgent Medical Question Adult Medicine [address] [address] Calista Howard PA-C [address] [place] [address] Social History Tobacco Use Types Packs/Day Years [...] PM EDT documented as of this encounter Progress Notes * Peyton Connell M.A. - 04/15/2022 7:48 AM EDT Please see Posterbee message for your review, thank you. *Care Everywhere updated, patient was seen at [facility]. documented in this encounter Miscellaneous Notes * Telephone Encounter - Peyton Connell M.A. - 04/15/2022 7:46 AM EDTFrom: Jose Odom To: Minal Howard Sent: 04/14/2022 5:41 PM EDT Subject: My apologies My apologies for swearing in general, no sleep and lots of stress and I know my body its not my heart, i am at the ER anyways as that conversation unsettled me, I.will follow up.with [facility] patient relations Thank you documented in this encounter Plan of Treatment Not on file documented as of this encounter Visit Diagnoses Not on filedocumented in this encounter Care Teams Print Developer Automatic Relationship Specialty Start Date End Date Jose Geiger MD [address] [place] [address] PCP - General Internal Medicine 01/03/20 documented as of this encounter
--- OUTSIDE RECORDS SUMMARY | 2025-07-08 09:28 | XMS_ITS | Encounter Summary ---
Author Organization [facility] Prior to 05/13/2024 Address [address] [place] [address] Care Team Providers Care Residential Specialist Name Role Phone Sherman Prabhakar MD Primary Care Provider Faisal Heller MD Primary Care Provider Stephany Jackson MD Primary Care Provider Un Jose Acosta MD Primary Care Provider [phone] Nick Caldera MD Primary Care Provider Jose Marin MD Primary Care Provider [phone] Reason for Visit * Reason Onset Date Comments REFERRAL 09/09/2012 Encounter Details Date Type Department Care Team Description 09/09/2012 Telephone Cardiology - [address] [address] Dalton Brady MD REFERRAL Social History Tobacco Use Types Packs/Day Years Used Date Smoking Tobacco: Former Cigarettes Q uit: 07/13/2001 Smokeless Tobacco: Never Alcohol Use Standard Drinks/Week Comments Yes 1.7 (1 standard drink = 0.6 oz p ure alcohol) 5 beers per mo Sex Assigned at Date Recorded Not on file Job Start Date Occupation Industry Not on file Not on file Not on file documented as of this encounter Miscellaneous Notes * Telephone Encounter - Dalton Brady MD - 09/09/2012 12:33 PM EST okay * Telephone Encounter - Nell Albert - 09/09/2012 10:39 AM EST FYI This pt canc our consult on [id number] and no showed [id number] At this time, we are removing his order/ pls place new order if needed/[facility] documented in this encounter Plan of Treatment Not on file documented as of this encounter Visit Diagnoses Not on filedocumented in this encounter Care Teams Residential Specialist Relationship Specialty Start Date End Date Sherman Prabhakar MD PCP - General 07/20/07 05/30/14 Faisal Hernández MD PCP - General Internal Medicine 05/31/14 10/06/16 Stephany Canales MD PCP - General Internal Medicine 10/07/16 Jsoe Geiger MD [address] [place], [place] [phone] PCP - General Internal Medicine 04/04/19 12/26/19 Nick Caldera MD [address] [place] [address] PCP - General Internal Medicine 12/27/19 01/02/20 Jose Geiger MD [address] [place] [address] PCP - General Internal Medicine 01/03/20 documented as of this encounter
--- OUTSIDE RECORDS SUMMARY | 2025-07-08 09:28 | XMS_ITS | Encounter Summary ---
Author Organization [facility] Prior to 05/13/2024 Address [address] [place] [address] Care Team Providers Care Repair Table Operator Name Role Phone Jose eGiger MD Primary Care Provider [phone] Nick Caldera MD Primary Care Provider Jose Marin MD Primary Care Provider [phone] Encounter Details Date Type Department Care Team Description 05/17/2019 Pt. Non Urgent Medical Question Pulmonology - [place] [address] [facility] [address] [place] [phone] Jorge Giron MD [address] [facility] [address] [place] [phone] Social History Tobacco Use Types Packs/Day Years [...] on filedocumented in this encounter Care Teams Repair Table Operator Relationship Specialty Start Date End Date Jose Geiger MD [address] [place] [address] PCP - General Internal Medicine 04/04/19 12/26/19 Nick Caldera MD [address] [place] [address] PCP - General Internal Medicine 12/27/19 01/02/20 Jose Geiger MD [address] [place] [address] PCP - General Internal Medicine 01/03/20 documented as of this encounter
--- OUTSIDE RECORDS SUMMARY | 2025-07-08 09:28 | XMS_ITS | Encounter Summary ---
Author Organization [facility] Prior to 05/13/2024 Address [address] [place] [address] Care Team Providers Care Nurse Assistant Name Role Phone Sherman Prabhakar MD Primary Care Provider Faisal Heller MD Primary Care Provider Stephany Jackson MD Primary Care Provider Un Jose Acosta MD Primary Care Provider [phone] Nick Caldera MD Primary Care Provider Jose Marin MD Primary Care Provider [phone] Encounter Details Date Type Department Care Team Description 2013 Customer Expert Report Medical Records [address] [place] [address] Reyes Laws MD Social History Tobacco Use Types Packs/Day Years Used Date Smoking Tobacco: Former Cigarettes Q uit: 07/13/2001 Smokeless Tobacco: Former Alcohol Use Standard Drinks/Week Comments Yes 1.7 [...] on filedocumented in this encounter Care Teams Nurse Assistant Relationship Specialty Start Date End Date Sherman Prabhakar MD PCP - General 07/20/07 05/30/14 Faisal Hernández MD PCP - General Internal Medicine 05/31/14 10/06/16 Stephany Canales MD PCP - General Internal Medicine 10/07/16 Jose Geiger MD [address] [place] [address] PCP - General Internal Medicine 04/04/19 12/26/19 Nick Caldera MD [address] [place] [address] PCP - General Internal Medicine 12/27/19 01/02/20 Jose Geiger MD [address] [place] [address] PCP - General Internal Medicine 01/03/20 documented as of this encounter
--- OUTSIDE RECORDS SUMMARY | 2025-07-08 09:28 | XMS_ITS | Encounter Summary ---
Author Organization [facility] Prior to 05/13/2024 Address [address] [place] [address] Care Team Providers Care Grave Cleaner Name Role Phone Jose Geiger MD Primary Care Provider Encounter Details Date Type Department Care Team Description 07/29/2021 Orders Only Medical Records [address] [place] [address] Jose Geiger MD [address] [place] [address] Social History Tobacco Use Types Packs/Day Years [...] have Coronavirus / COVID-19? No / Unsure 08/01/2021 10:23 AM EST documented as of this encounter Plan of Treatment Not on file documented as of this encounter Procedures Procedure Name Priority Date/Time Associated Diagnosis Comments OUTSIDE SLEEP STUDY Routine 07/24/2021 documented in this encounter Results * OUTSIDE SLEEP STUDY (07/24/2021) Jose Geiger MD PULMONOLOGY documented in this encounter Visit Diagnoses Not on filedocumented in this encounter Care Teams Grave Cleaner Relationship Specialty Start Date End Date Jose Geiger MD [address] [place], [place] [phone] PCP - General Internal Medicine 01/03/20 documented as of this encounter
--- OUTSIDE RECORDS SUMMARY | 2025-07-08 09:28 | XMS_ITS | Encounter Summary ---
Author Organization [facility] Prior to 05/13/2024 Address [address] [place] [address] Care Team Providers Care Whizzer Hand Name Role Phone Jose Geiger MD Primary Care Provider [phone] Reason for Visit * Reason Onset Date Comments APPOINTMENT 04/04/2024 Encounter Details Date Type Department Care Team Description 04/04/2024 Telephone Radiology - [address] [address] Radiology, Authorizing APPOINTMENT Social History Tobacco Use Types Packs/Day Years [...] * Telephone Encounter - Lisa Adan - 04/04/2024 11:07 AM EDT 2nd message. Hi dr. Geiger, There is an order in the system for this pt to schedule a leg u/s for a tendon. We do not schedule u/s for ? Tendon tear. An external order will need to be entered. Thank you documented in this encounter Plan of Treatment Not on file documented as of this encounter Visit Diagnoses Not on filedocumented in this encounter Care Teams Whizzer Hand Relationship Specialty Start Date End Date Jose Geiger MD [address] [place] [address] PCP - General Internal Medicine 01/03/20 documented as of this encounter
--- OUTSIDE RECORDS SUMMARY | 2025-07-08 09:28 | XMS_ITS | Encounter Summary ---
Author Organization [facility] Prior to 05/13/2024 Address [address] [place] [address] Care Team Providers Care Biometric Screener Name Role Phone Faisal Hernández MD Primary Care Provider Stephany Jackson MD Primary Care Provider Un available Jose Geiger MD Primary Care Provider [phone] Nick Caldera MD Primary Care Provider Jose Marin MD Primary Care Provider [phone] Encounter Details Date Type Department Care Team Description 09/19/2016 Hospital Medical Records [address] [place] [address] Abstract, Provider Social History Tobacco Use Types Packs/Day Years [...] on filedocumented in this encounter Care Teams Biometric Screener Relationship Specialty Start Date End Date Faisal Hernández MD PCP - General Internal Medicine 05/31/14 10/06/16 Stephany Canales MD PCP - General Internal Medicine 10/07/16 Jose Geiger MD [address] [place] [address] [place] [address] PCP - General Internal Medicine 04/04/19 12/26/19 Nick Caldera MD [address] [place] [address] PCP - General Internal Medicine 12/27/19 01/02/20 Jose Geiger MD [address] [place] [address] [phone] PCP - General Internal Medicine 01/03/20 documented as of this encounter
--- OUTSIDE RECORDS SUMMARY | 2025-07-08 09:28 | XMS_ITS | Encounter Summary ---
Author Organization [facility] Prior to 05/13/2024 Address [address] [place] [address] Care Team Providers Care Radar Engineer Name Role Phone Jose Geiger MD Primary Care Provider [phone] Encounter Details Date Type Department Care Team Description 10/08/2022 Pt. Non Urgent Medical Question Adult Medicine [address] [phone] Jose Geiger MD [address] [place] [address] [phone] Social History Tobacco Use Types Packs/Day Years [...] encounter Miscellaneous Notes * Telephone Encounter - Ana Baum M.A. - 10/08/2022 3:33 PM EDTFrom: Jose Odom To: Qing Geiger Sent: 10/08/2022 3:31 PM EDT Subject: Levothyrox Refill at [facility] , I was notified of a prescription refill for 7 tabs at [facility], I didn't request that, I get my scripts through [facility], I am not sure I need Levothyrox at this time, I will request a refill on their site if I do. Thank you documented in this encounter Plan of Treatment Not on file documented as of this encounter Visit Diagnoses Not on filedocumented in this encounter Care Teams Radar Engineer Relationship Specialty Start Date End Date Jose Geiger MD [address] [place] [address] PCP - General Internal Medicine 01/03/20 documented as of this encounter
--- OUTSIDE RECORDS SUMMARY | 2025-07-08 09:28 | XMS_ITS | Encounter Summary ---
Author Organization [facility] [employer] [facility] Prior to 05/13/2024 Address [address] [place] [address] Care Team Providers Care Custom Grinder Name Role Phone Sherman Prabhakar MD Primary Care Provider Faisal Heller MD Primary Care Provider Stephany Jackson MD Primary Care Provider Un Jose Acosta MD Primary Care Provider [phone] Nick Caldera MD Primary Care Provider Jose Marin MD Primary Care Provider [phone] Encounter Details Date Type Department Care Team Description 04/04/2011 [facility] Medical Records [address] [place] [address] Monica Romero MD Social History Tobacco Use Types Packs/Day [...] on filedocumented in this encounter Care Teams Custom Grinder Relationship Specialty Start Date End Date Sherman Prabhakar MD PCP - General 07/20/07 05/30/14 Faisal Hernández MD PCP - General Internal Medicine 05/31/14 10/06/16 Stephany Canales MD PCP - General Internal Medicine 10/07/16 Jose Geiger MD [address] [place] [address] PCP - General Internal Medicine 04/04/19 12/26/19 Nick Caldera MD [address] [place] [address] PCP - General Internal Medicine 12/27/19 01/02/20 Jose Geiger MD [address] [place] [address] PCP - General Internal Medicine 01/03/20 documented as of this encounter
--- OUTSIDE RECORDS SUMMARY | 2025-07-08 09:28 | XMS_ITS | Encounter Summary ---
Author Organization [facility] Prior to 05/13/2024 Address [address] [place] [address] Care Team Providers Care Licensed Psychologist Name Role Phone Stephany Canales MD Primary Care Provider Un available Jose Geiger MD Primary Care Provider [phone] Nick Caldera MD Primary Care Provider Jose Marin MD Primary Care Provider [phone] Encounter Details Date Type Department Care Team Description 12/01/2016 [facility] Medical Records [address] [place] [id number] Abstract, Provider Social History Tobacco Use Types Packs/Day Years Used Date Smoking Tobacco: Former Cigarettes Q uit: 07/13/2001 Smokeless Tobacco: Former Alcohol Use Standard Drinks/Week Comments Yes 1.7 (1 standard drink = 0.6 oz p ure alcohol) 5 beers on weekends Sex Assigned at Date Recorded Not on file Job Start Date Occupation Industry Not on file Not on file Not on file documented as of this encounter Plan of Treatment Not on file documented as of this encounter Procedures Procedure Name Priority Date/Time Associated Diagnosis Comments OUTSIDE EKG Routine 09/20/2016 documented in this encounter Results * OUTSIDE EKG (09/20/2016) Provider Abstract CARDIOLOGY documented in this encounter Visit Diagnoses Not on filedocumented in this encounter Care Teams Licensed Psychologist Relationship Specialty Start Date End Date Stephany Canales MD PCP - General Internal Medicine 10/07/16 Jose Geiger MD [address] [place] [address] PCP - General Internal Medicine 04/04/19 12/26/19 Nick Caldera MD [address] [place] [address] PCP - General Internal Medicine 12/27/19 01/02/20 Jose Geiger MD [address] [place] [address] PCP - General Internal Medicine 01/03/20 documented as of this encounter
--- OUTSIDE RECORDS SUMMARY | 2025-07-08 09:28 | XMS_ITS | Encounter Summary ---
Author Organization [facility] Prior to 05/13/2024 Address [address] [place] [address] Care Team Providers Care Hand Reamer Name Role Phone Jose Geiger MD Primary Care Provider [phone] Nick Caldera MD Primary Care Provider Jose Marin MD Primary Care Provider [phone] Reason for Visit * Reason Onset Date Comments Data Processing Mechanic Feedback 11/29/2019 Orthopedics Encounter Details Date Type Department Care Team Description 11/29/2019 Telephone Adult Medicine [address] [phone] Jose Geiger MD [address] [place] [address] [phone] Data Processing Mechanic Feedback (Orthopedics) Social History Tobacco Use Types Packs/Day Years [...] encounter Miscellaneous Notes * Telephone Encounter - Brendon Aquino M.A. - 11/29/2019 11:22 AM EDT Patient is aware that he haves to get x ray before seeing ortho. * Telephone Encounter - Jose Geiger MD - 11/29/2019 11:11 AM EDT Please contact the patient and inform him that he will need an xray before he can see ortho and to that end I have placed the order and he can go to xray at his convenience * Telephone Encounter - Sushma Patel - 11/29/2019 10:00 AM EDT Hi, Dr. Geiger You place a orthopedics order for recurrent shoulder dislocations. Ismael GAYTAN at [facility] see the patient but we need a X-ray done before we can book this appointment. Can you please place a X-ray of the shoulder and have your clinical staff reach out to patient regarding this X-ray. Once patient get's her X-ray done I can set up appointment with LUCILA Galeas. Thank you Stephanie Referral Beef Cattle Farmer documented in this encounter Plan of Treatment Not on file documented as of this encounter Results * X-RAY EXAM OF SHOULDER, COMPLETE (01/16/2020 1:52 PM EDT) 01/16/2020 2:01 PM EDT Impressions [facility] - 01/16/2020 2:03 PM EDT Very mild degenerative changes. Probable small Hill-Sachs lesion. Narrative [facility] - 01/16/2020 2:03 PM EDT History: Shoulder pain. Left shoulder, 4 views: There are minimal degenerative changes in the a.c. joint and shoulder outlet. There is mild glenohumeral joint degeneration. There are no appreciable soft tissue calcifications. If there is a clinical question of rotator cuff or bursal pathology, MRI may be of value. There is slight irregularity of the superior margin of the articular surface of the humeral head. This could reflect some minimal stigmata of prior anterior inferior dislocation (Hill-Sachs deformity). Procedure Note Brian Flores MD - 01/16/2020 History: Shoulder pain. Left shoulder, 4 views: There are minimal degenerative changes in the a.c.joint and shoulder outlet. There is mild glenohumeral joint degeneration. There are noappreciable soft tissue calcifications. If there is a clinical question of rotator cuff or bursalpathology, MRI may be of value. There is slight irregularity of the superior margin of the articularsurface of the humeral head. This could reflect some minimal stigmata of prior anterior inferiordislocation (Hill-Sachs deformity). IMPRESSION Very mild degenerative changes. Probable small Hill-Sachs lesion. Jose Geiger MD RADIOLOGY [facility] documented in this encounter Visit Diagnoses Diagnosis Recurrent dislocation- Primary Recurrent dislocation of joint, site unspecified Recurrent dislocation Recurrent dislocation of joint, site unspecified documented in this encounter Care Teams Hand Reamer Relationship Specialty Start Date End Date Jose Geiger MD [address] [place], [place] [phone] PCP - General Internal Medicine 04/04/19 12/26/19 Nick Caldera MD [address] [place] [address] PCP - General Internal Medicine 12/27/19 01/02/20 Jose Geiger MD [address] [place] [address] PCP - General Internal Medicine 01/03/20 documented as of this encounter
--- OUTSIDE RECORDS SUMMARY | 2025-07-08 09:28 | XMS_ITS | Encounter Summary ---
Author Organization [facility] Prior to 05/13/2024 Address [address] [place] [address] Care Team Providers Care Weapons System Instrument Mechanic Name Role Phone Faisal Hernández MD Primary Care Provider Unavail able Stephany Canales MD Primary Care Provider Un available Jose Geiger MD Primary Care Provider [phone] Nick Caldera MD Primary Care Provider Jose Marin MD Primary Care Provider [phone] Encounter Details Date Type Department Care Team Description 06/15/2014 [place] [facility] [address] [address] Faisal Hernández MD Social History Tobacco Use Types Packs/Day [...] on filedocumented in this encounter Care Teams Weapons System Instrument Mechanic Relationship Specialty Start Date End Date Faisal Hernández MD PCP - General Internal Medicine 05/31/14 10/06/16 Stephany Canales MD PCP - General Internal Medicine 10/07/16 Jose Geiger MD [address] [place] [address] PCP - General Internal Medicine 04/04/19 12/26/19 Nick Caldera MD [address] [place] [address] PCP - General Internal Medicine 12/27/19 01/02/20 Jose Geiger MD [address] [place] [address] PCP - General Internal Medicine 01/03/20 documented as of this encounter
--- OUTSIDE RECORDS SUMMARY | 2025-07-08 09:28 | XMS_ITS | Encounter Summary ---
Author Organization [facility] Prior to 05/13/2024 Address [address] [place] [address] Care Team Providers Care Director Data Management Name Role Phone Sherman Ospina MD Primary Care Provider Faisal Heller MD Primary Care Provider Stephany Jackson MD Primary Care Provider Un Jose Acosta MD Primary Care Provider [phone] Nick Caldera MD Primary Care Provider Jose Marin MD Primary Care Provider [phone] Reason for Visit * Reason Onset Date Comments Headache 01/26/2013 [facility] er 01/23 dx viral menegistis Encounter Details Date Type Department Care Team Description 01/26/2013 Telephone Adult Medicine [address] [address] Sherman Ospina MD Headache ([facility] er 01/23/2013 dx viral menegistis) Social History Tobacco Use Types Packs/Day Years [...] encounter Miscellaneous Notes * Telephone Encounter - Roxanne Felix R.N. - 01/26/2013 12:07 PM EDT Pt to see dr Ospina today at 2;15 for [facility] f/u * Telephone Encounter - Ingrid Rosas - 01/26/2013 10:19 AM EDT Symptoms patient is presenting: the pt was in [facility] er on 01/23/2013 dx viral menengistis he has a headache today but the fever is much better he would like to be seen today for the s/s if possibleby Dr Ospina the pt is not on any medications for the virus he had a spinal tap on 01/23/2013 How long has patient had these symptoms?: 01/23/2013 PCP: Sherman Ospina MD Payor: [facility]PPO POS Plan: PPO $[id number] [place] [id number] Product Type: PPO [id number] documented in this encounter Plan of Treatment Not on file documented as of this encounter Visit Diagnoses Not on filedocumented in this encounter Care Teams Director Data Management Relationship Specialty Start Date End Date Sherman Ospina MD PCP - General 07/20/07 05/30/14 Faisal Hernández MD PCP - General Internal Medicine 05/31/14 10/06/16 Stephany Canales MD PCP - General Internal Medicine 10/07/16 Jose Geiger MD [address] [place] [address] PCP - General Internal Medicine 04/04/19 12/26/19 Nick Caldera MD [address] [place] [address] PCP - General Internal Medicine 12/27/19 01/02/20 Jose Geiger MD [address] [place] [address] PCP - General Internal Medicine 01/03/20 documented as of this encounter
--- OUTSIDE RECORDS SUMMARY | 2025-07-08 09:28 | XMS_ITS | Clinical Summary ---
Author Organization [address] Address [address] [place] [phone] Phone Care Team Providers Care Tugboat Operator Name Role Phone Jose Geiger MD Primary Care Provider [phone] Allergies Active Allergy Reactions Criticality Noted Date [...] EC tablet Take by mouth. Activ e e-[id number]-ipkles ne (NAC) 600 mg capsule Take by [...] 06/22/2022 Obstructive sleep apnea 07/29/2021 Overview (06/17/2024): [facility] Home sleep test 07/24/2021; weight 245; [...] Care Team Description 04/13/2025 Nurse Triage Adult Medicine [address] [phone] Jose Geiger MD 04/12/2025 Nurse Triage Adult Medicine [address] [phone] Jose Geiger MD from Last 3 Months Immunizations Immunization Administration [...] COMMENT: diverticulosis UPPER GASTROINTESTINAL ENDOSCOPY 04/16/2017 PROCEDURE: IA UPPER GI ENDOSCOPY PERFORMED; COMMENT: normal COLONOSCOPY 10/04/2010 PROCEDURE: HISTORICAL COLONOSCOPY; COMMENT: diverticulosis UPPER GASTROINTESTINAL ENDOSCOPY 10/04/2010 PROCEDURE: IA UPPER GI ENDOSCOPY PERFORMED; COMMENT: normal Medical [...] for your loved ones. For example, child welfare assistant or elderly care for an older adult? [...] 4:30 PM EDT Office Visit Adult Medicine [address] [phone] Jose Geiger MD [address] [place] [address] Health Maintenance Due Date Last Done Comments [...] Procedure Name Priority Date/Time Associated Diagnosis Comments MICROALBUMIN CREATININE URINE RATIO Routine 03/20/2025 8:46 AM EDT Type 2 diabetes mellitus without complication, without long-term current use of insulin ([facility] V24, [facility] V28) COMPREHENSIVE METABOLIC PANEL Routine 03/20/2025 8:46 AM EDT HTN (hypertension), benign Type 2 diabetes mellitus without complication, without long-term current use of insulin ([facility] V24, [facility] V28) Encounter for long-term (current) use of medications HEMOGLOBIN A1C Routine 03/20/2025 8:46 AM EDT Type 2 diabetes mellitus without complication, without long-term current use of insulin ([facility] V24, [facility] V28) LIPID PANEL WITH REFLEX TO DIRECT LDL Routine 03/20/2025 8:46 AM EDT High cholesterol Type 2 diabetes mellitus without complication, without long-term current use of insulin ([facility] V24, [facility] V28) COLONOSCOPY Routine 04/16/2017 HEPATITIS C SCREENING Routine 03/05/2013 from Last 3 Months or Most Recently Relevant to Health Maintenance Results * Lipid panel with reflex to direct LDL (03/20/2025 8:46 AM EDT) Cholesterol 122 0 - 200 mg/dL LAB CHE[facility]STR[facility] Triglycerides 148 0 - 150 mg/dL LAB CHEMISTRY METHOD 03/20/2025 2:20 PM [facility] HDL 50 >=40 mg/dL LAB CHEMISTRY METHOD 03/20/2025 2:20 PM [facility] LDL Calculated 42 0 - 100 mg/dL LAB CHEMISTRY METHOD 03/20/2025 2:20 PM [facility] Comment:Estimated LDL Calcul ated using equation: Total cholesterol - HDL cholesterol - (Triglycerides/5) VLDL Cholesterol Garo 29.6 mg/dL LAB CHEMISTRY METHOD 03/20/2025 2:20 PM [facility] Non HDL Chol. (LDL+VLDL) 72 <145 mg/dL LAB CHEMISTRY METHOD 03/20/2025 2:20 PM [facility] Chol/HDL Ratio 2.4 0.0 - 4.4 LAB CHEMISTRY METHOD 03/20/2025 2:20 PM [facility] Blood Venous blood specimen / Unknown Venipuncture / Unknown 03/20/2025 8:46 AM EDT 03/20/2025 8:46 AM EDT us Jose Geiger MD LAB BLOOD ORDERABLES Final Resu lt Performing Organization Address [facility]/ZIP Co de Phone Number [facility] [address] [place] [address], [place] [phone] * Microalbumin creatinine urine ratio (03/20/2025 8:46 AM EDT) Creatinine, Urine 64.0 mg/dL LAB CHEMISTRY METHOD 03/20/2025 11:34 AM EDT [facility] Microalb, Ur <5.0 0.0 - 29.0 mg/L LAB CHEMISTRY METHOD 03/20/2025 11:34 AM EDT [facility] Microalb/Creat Ratio <8 <30 mg/g creat LAB CHEMISTRY METHOD 03/20/2025 11:34 AM EDT [facility] Urine Urine specimen obtained by clean catch procedure / Unknown Non-blood Collection / Unknown 03/20/2025 8:46 AM EDT 03/20/2025 8:46 AM EDT us Jose Geiger MD LAB URINE ORDERABLES Final Resu lt Performing Organization Address [facility]/ZIP Co de Phone Number [facility] [address] [place] [address], [place] [phone] * (ABNORMAL) Hemoglobin A1c (03/20/2025 8:46 AM EDT) Hemoglobin A1C 6.6(H) <6.5 % LAB CHEMISTRY METHOD 03/20/2025 12:27 PM EDT [facility] Mean Bld Glu Estim. 143 mg/dL LAB CHEMISTRY METHOD 03/20/2025 12:27 PM EDT [facility] Blood Venous blood specimen / Unknown Venipuncture / Unknown 03/20/2025 8:46 AM EDT 03/20/2025 8:46 AM EDT us Jose Geiger MD LAB BLOOD ORDERABLES Final Resu lt [facility] [address] [place] [address], [place] [phone] * (ABNORMAL) Comprehensive metabolic panel (03/20/2025 8:46 AM EDT) Sodium 137 133 - 145 mmol/L LAB CHEMISTRY METHOD 03/20/2025 2:20 PM [facility] Potassium 3.7 3.5 - 5.5 mmol/L LAB CHEMISTRY METHOD 03/20/2025 2:20 PM [facility] Chloride 103 96 - 110 mmol/L LAB CHEMISTRY METHOD 03/20/2025 2:20 PM [facility] CO2 28 21 - 32 mmol/L LAB CHEMISTRY METHOD 03/20/2025 2:20 PM [facility] Anion Gap 6 3 - 11 LAB CHEMISTRY METHOD 03/20/2025 2:20 PM [facility] Glucose 125(H) 70 - 100 mg/dL LAB CHEMISTRY METHOD 03/20/2025 2:20 PM [facility] BUN 19 5 - 25 mg/dL LAB CHEMISTRY METHOD 03/20/2025 2:20 PM [facility] Creatinine 1.06 0.70 - 1.30 mg/dL LAB CHEMISTRY METHOD 03/20/2025 2:20 PM [facility] eGFR 79 >=60 mL/min/1. 73m2 LAB CHEMISTRY METHOD 03/20/2025 2:20 PM [facility] Comment:Calculation based on the Chronic Kidney Disease Epidemiology Collaboration (CKD-EPI) equation refit without adjustment for race. BUN/Creatinine Ratio 17.9 LAB CHEMISTRY METHOD 03/20/2025 2:20 PM T [facility] Calcium 9.4 8.5 - 10.5 mg/dL LAB CHEMISTRY METHOD 03/20/2025 2:20 PM [facility] AST (SGOT) 33 10 - 42 unit/L LAB CHEMISTRY METHOD 03/20/2025 2:20 PM [facility] ALT (SGPT) 92(H) 10 - 60 unit/L LAB CHEMISTRY METHOD 03/20/2025 2:20 PM [facility] Alkaline Phosphatase 54 42 - 121 unit/L LAB CHEMISTRY METHOD 03/20/2025 2:20 PM [facility] Total Protein 7.0 6.0 - 8.0 g/dL LAB CHEMISTRY METHOD 03/20/2025 2:20 PM [facility] Albumin 4.2 3.2 - 5.0 g/dL LAB CHEMISTRY METHOD 03/20/2025 2:20 PM [facility] Total Bilirubin 0.6 0.0 - 1.4 mg/dL LAB CHEMISTRY METHOD 03/20/2025 2:20 PM [facility] Blood Venous blood specimen / Unknown Venipuncture / Unknown 03/20/2025 8:46 AM EDT 03/20/2025 8:46 AM EDT Jose Geiger MD LAB BLOOD ORDERABLES Final Resu lt [facility] [address] [place] [address], * Colonoscopy (04/16/2017) [facility] Colonoscopy abstracted, no interpretation Anatomical Region Laterality Modality Other Anne Yang MD HEALTH MAINTENANCE Final Result * Hepatitis C Screening (03/05/2013) [facility] Hepatitis C Screening abstracted us Historical Provider HEALTH MAINTENANCE Final Result from Last 3 Months or Most Recently Relevant to Health Maintenance Insurance [facility] Care Teams Tugboat Operator Relationship Specialty Start Date End Date Jose Geiger MD [address] [place], [place] PCP - General Internal Medicine 04/04/19
--- OUTSIDE RECORDS SUMMARY | 2025-07-08 09:28 | XMS_ITS | Encounter Summary ---
Author Organization [facility] Prior to 05/13/2024 Address [address] [place] [address] Care Team Providers Care Pharmacologist Name Role Phone Jose Geiger MD Primary Care Provider Nick Caldera MD Primary Care Provider Jose Marin MD Primary Care Provider [phone] Encounter Details Date Type Department Care Team Description 05/20/2019 Pt. Non Urgent Medic al Question Adult Medicine [address] [address] Lacie Martins PA Social History Tobacco Use Types Packs/Day Years [...] encounter Miscellaneous Notes * Telephone Encounter - Mili Garsia M.A. - 05/20/2019 12:51 PM ESTFrom: Jose Odom To: Lacie Goldberg PA-C Sent: 05/20/2019 12:46 PM EST Subject: Test results Just wondering if all my last blood test results were in, I do see them here, not sure if all the data is there though like PSA level, ETC? Thank you documented in this encounter Plan of Treatment Not on file documented as of this encounter Visit Diagnoses Not on filedocumented in this encounter Care Teams Pharmacologist Relationship Specialty Start Date End Date Jose Geiger MD [address] [place] [address] PCP - General Internal Medicine 04/04/19 12/26/19 Nick Caldera MD [address] [place], [place] [phone] PCP - General Internal Medicine 12/27/19 01/02/20 Jose Geiger MD [address] [place] [address] PCP - General Internal Medicine 01/03/20 documented as of this encounter
--- OUTSIDE RECORDS SUMMARY | 2025-07-08 09:28 | XMS_ITS | Encounter Summary ---
Author Organization [facility] Prior to 05/13/2024 Address [address] [place] [address] Care Team Providers Care Wax Pattern Assembler Name Role Phone Sherman Prabhakar MD Primary Care Provider Faisal Heller MD Primary Care Provider [facility] Stephany Pineda MD Primary Care Provider Un Jose Acosta MD Primary Care Provider [phone] Nick Caldera MD Primary Care Provider Jose Marin MD Primary Care Provider [phone] Encounter Details Date Type Department Care Team Description 04/13/2013 Block Making Machine Operator Report Medical Records [address] [place] [id number] Reyes Laws MD Social History Tobacco Use [...] on filedocumented in this encounter Care Teams Wax Pattern Assembler Relationship Specialty Start Date End Date Sherman Prabhakar MD PCP - General 07/20/07 05/30/14 Faisal Hernández MD PCP - General Internal Medicine 05/31/14 10/06/16 Stephany Canales MD PCP - General Internal Medicine 10/07/16 Jose Geiger MD [address] [place] [phone] PCP - General Internal Medicine 04/04/19 12/26/19 Nick Caldera MD [address] [place] [address] PCP - General Internal Medicine 12/27/19 01/02/20 Jose Geiger MD [address] [place] [address] PCP - General Internal Medicine 01/03/20 documented as of this encounter
--- OUTSIDE RECORDS SUMMARY | 2025-07-08 09:28 | XMS_ITS | Encounter Summary ---
Author Organization [facility] Prior to 05/13/2024 Address [address] [place] [address] Care Team Providers Care Top Lift Compresser Name Role Phone Jose Geiger MD Primary Care Provider [phone] Reason for Visit * Reason Comments E-prescribe Rx Request Encounter Details Date Type Department Care Team Description 06/18/2020 Refill Adult Medicine [facility] [address] [place] [phone] Jose Geiger MD [address] [place] [address] E-prescribe Rx Request Social History Tobacco Use [...] encounter Miscellaneous Notes * Telephone Encounter - Carey Suárez - 06/20/2020 9:19 AM EST Message left for patient to contact office to schedule med f/u * Telephone Encounter - Carey Suárez - 06/20/2020 9:05 AM EST Script sent to pharmacy as requested. * Telephone Encounter - Brittney Edmond - 06/20/2020 8:19 AM EST Ada 11/29/19 Lab Results Component Value Date NA 139 05/01/2020 K 4.0 05/01/2020 CO2 28 05/01/2020 CL 103 05/01/2020 BUN 16 05/01/2020 CREAT 0.84 05/01/2020 GLU 129 05/01/2020 CA 9.3 05/01/2020 GFR > 60 05/01/2020 * Telephone Encounter - Consuelo Esqueda - 06/19/2020 8:10 AM EST Patient would like script to be: E-PRESCRIBED/FAXED TO PHARMACY WHEN WAS THE PATIENT'S LAST APPOINTMENT IN ADULT MEDICINE? WHEN WAS THE LAST TIME THE PATIENT SAW THEIR PCP? Same as above Does patient have an upcoming appointment? No-unable to reach left [facility] to call for appointment due to refill request. Appt due (THE MEDICATION REQUESTED IS ON THE MED [...] N/A Patients current insurance carrier is: Payor: [employer] [facility] [employer] / Plan: O $0 [facility] / Product Type: HMO [id number] documented in this encounter Plan of Treatment Not on file documented as of this encounter Visit Diagnoses Diagnosis HTN (hypertension), benign Essential hypertension, benign High cholesterol Pure hypercholesterolemia Generalized anxiety disorder Irritable bowel syndrome, unspecified type Morbid obesity (HCC) Morbid obesity documented in this encounter Care Teams Top Lift Compresser Relationship Specialty Start Date End Date Jose Geiger MD [address] [place] [phone] PCP - General Internal Medicine 01/03/20 documented as of this encounter
--- OUTSIDE RECORDS SUMMARY | 2025-07-08 09:28 | XMS_ITS | Encounter Summary ---
Author Organization [facility] Prior to 05/13/2024 Address [address] [place] [address] Care Team Providers Care Signal Operator Linguist Name Role Phone Stephany Canales MD Primary Care Provider Un available Jose Geiger MD Primary Care Provider [phone] Nick Caldera MD Primary Care Provider Jose Marin MD Primary Care Provider [phone] Encounter Details Date Type Department Care Team Description 10/15/2016 Transfer Records Medical Records [address] [place] [id number] Abstract, Provider Social History Tobacco Use Types [...] on file documented as of this encounter Nursing Notes * 10/15/2016 12:00 PM EDT >> HUA RADFORD ThuOct 15, 2016 3:52 PM Transfer records received from [facility] sent to [facility] abstractors. documented in this encounter Plan of Treatment Not on file documented as of this encounter Visit Diagnoses Not on filedocumented in this encounter Care Teams Signal Operator Linguist Relationship Specialty Start Date End Date Stephany Canales MD PCP - General Internal Medicine 10/07/16 Jose Geiger MD [address] [place] [address] PCP - General Internal Medicine 04/04/19 12/26/19 Nick Caldera MD [address] [place] [address] PCP - General Internal Medicine 12/27/19 01/02/20 Jose Geiger MD [address] [place] [address] PCP - General Internal Medicine 01/03/20 documented as of this encounter
--- OUTSIDE RECORDS SUMMARY | 2025-07-08 09:28 | XMS_ITS | Encounter Summary ---
Author Organization [facility] Prior to 05/13/2024 Address [address] [place] [address] Care Team Providers Care Excelsior Machine Operator Name Role Phone Jose Geiger MD Primary Care Provider [phone] Nick Caldera MD Primary Care Provider Jose Marin MD Primary Care Provider [phone] Encounter Details Date Type Department Care Team Description 04/18/2019 [facility] [address] [place] [address] Md Miah Social History Tobacco Use Types Packs/Day Years [...] encounter Miscellaneous Notes * Telephone Encounter - Brittney Edmond - 04/19/2019 9:47 AM EDT Last ov 04/04/2019 Lab Results Component Value Date NA 139 11/13/2018 K 3.6 11/13/2018 CO2 28 11/13/2018 CL 103 11/13/2018 BUN 12 11/13/2018 CREAT 0.99 11/13/2018 GLU 142 11/13/2018 CA 9.1 11/13/2018 GFR > 60 11/13/2018 * Telephone Encounter - Deshaunyasmani German - 04/19/2019 9:34 AM EDTFrom: Jose Gonzalesjesus Sent: 04/18/2019 11:32 AM EDT Subject: Medication Renewal Request Jose Odom would like a refill of the following medications: Medication renewals requested in this message routed to other providers: amlodipine (NORVASC) 10 MG tablet [Jc Atkins PA-C] pantoprazole (PROTONIX) 40 MG tablet [Stephany Canales MD] indapamide (LOZOL) 1.25 MG tablet [Stephany Canales MD] ALBUTEROL SULFATE (PROAIR HFA) 108 (90 BASE) MCG/ACT Aero Soln [Jorge Elena MD] Other - see comments for explanation Preferred pharmacy: [email or web address] [address] Comment: Please send all refills to: [facility] [address] [address] documented in this encounter Plan of Treatment Not on file documented as of this encounter Visit Diagnoses Diagnosis HTN (hypertension), benign Essential hypertension, benign High cholesterol Pure hypercholesterolemia Generalized anxiety disorder Irritable bowel syndrome, unspecified type Morbid obesity (HCC) Morbid obesity documented in this encounter Care Teams Excelsior Machine Operator Relationship Specialty Start Date End Date Jose Geiger MD [address] [place] [address] PCP - General Internal Medicine 04/04/19 12/26/19 Nick Caldera MD [address] [place] [address] PCP - General Internal Medicine 12/27/19 01/02/20 Jose Geiger MD [address] [place] [address] PCP - General Internal Medicine 01/03/20 documented as of this encounter
--- OUTSIDE RECORDS SUMMARY | 2025-07-08 09:28 | XMS_ITS | Encounter Summary ---
Author Organization [facility] Prior to 05/13/2024 Address [address] [place] [address] Care Team Providers Care Assisted Living Housekeeper Name Role Phone Sherman Prabhakar MD Primary Care Provider Faisal Heller MD Primary Care Provider [facility] Stephany Canales MD Primary Care Provider Un Jose Acosta MD Primary Care Provider [phone] Nick Caldera MD Primary Care Provider Jose Marin MD Primary Care Provider [phone] Encounter Details Date Type Department Care Team Description 12/24/2009 Night Triage Doc Medical Records [address] [place] [address] Abstract, Provider Social History Tobacco Use Types Packs/Day Years Used Date Smoking Tobacco: Former Comments:6 years ago Alcohol Use Standard Drinks/Week Comments Yes 1.7 (1 standard drink = 0.6 oz p ure alcohol) rare Sex Assigned at Date Recorded Not on file Job Start Date Occupation Industry Not on file Not on file Not on file documented as of this encounter Plan of Treatment Not on file documented as of this encounter Visit Diagnoses Not on filedocumented in this encounter Care Teams Assisted Living Housekeeper Relationship Specialty Start Date End Date Sherman Prabhakar MD PCP - General 07/20/07 05/30/14 Faisal Hernández MD PCP - General Internal Medicine 05/31/14 10/06/16 Stephany Canales MD PCP - General Internal Medicine 10/07/16 Jose Geiger MD [address] [place] [address] PCP - General Internal Medicine 04/04/19 12/26/19 Nick Caldera MD [address] [place] [address] PCP - General Internal Medicine 12/27/19 01/02/20 Jose Geiger MD [address] [place] [address] PCP - General Internal Medicine 01/03/20 documented as of this encounter
--- OUTSIDE RECORDS SUMMARY | 2025-07-08 09:28 | XMS_ITS | Encounter Summary ---
Author Organization [facility] Prior to 05/13/2024 Address [address] [place] [address] Care Team Providers Care Sex Crimes Detective Name Role Phone Jose Geiger MD Primary Care Provider [phone] Reason for Visit * Reason Onset Date Comments Mychart Rx Refill 09/23/2022 Encounter Details Date Type Department Care Team Description 09/23/2022 Refill Adult Medicine [address] [address] Calista Howard PA-C [address] [place] [address] Mychart Rx Refill Social History Tobacco Use Types Packs/Day Years [...] Telephone Encounter - Vashti Lawrence M.A. - 09/24/2022 11:35 AM EDT New rx request as [facility] is no longer produced. AMY salazar/Calista Howard 04/14/2022 AMY w/PCP was telemed 11/13/2021 Next OV w/PCP 10/14/2022 documented in this encounter Plan of Treatment Not on file documented as of this encounter Visit Diagnoses Not on filedocumented in this encounter Care Teams Sex Crimes Detective Relationship Specialty Start Date End Date Jose Geiger MD [address] [place] [address] PCP - General Internal Medicine 01/03/20 documented as of this encounter
--- OUTSIDE RECORDS SUMMARY | 2025-07-08 09:28 | XMS_ITS | Encounter Summary ---
Author Organization [facility] Prior to 05/13/2024 Address [address] [place] [address] Care Team Providers Care Manager Lsw Name Role Phone Faisal Hernández MD Primary Care Provider Stephany Jackson MD Primary Care Provider Un available Jose Geiger MD Primary Care Provider [phone] Nick Caldera MD Primary Care Provider Jose Marin MD Primary Care Provider [phone] Reason for Visit * Reason Onset Date Comments Follow-up Appt Unavailable 02/25/2016 Encounter Details Date Type Department Care Team Description 02/25/2016 Telephone Adult Medicine [address] [address] Stephany Canales MD Follow-up Appt Unavailable Social History Tobacco Use Types Packs/Day Years [...] encounter Miscellaneous Notes * Telephone Encounter - Elvia Leary - 02/25/2016 2:25 PM EDT PATIENT IS NEEDS A [address] FOLLOW UP WITH DR CANALES 03/10/2016. documented in this encounter Plan of Treatment Not on file documented as of this encounter Visit Diagnoses Not on filedocumented in this encounter Care Teams Manager Lsw Relationship Specialty Start Date End Date Faisal Hernández MD PCP - General Internal Medicine 05/31/14 10/06/16 Stephany Canales MD PCP - General Internal Medicine 10/07/16 Jose Geiger MD [address] [place] [address] PCP - General Internal Medicine 04/04/19 12/26/19 Nick Caldera MD [address] [place] [address] PCP - General Internal Medicine 12/27/19 01/02/20 Jose Geiger MD [address] [place] [address] PCP - General Internal Medicine 01/03/20 documented as of this encounter
--- OUTSIDE RECORDS SUMMARY | 2025-07-08 09:28 | XMS_ITS | Encounter Summary ---
Author Organization [facility] Prior to 05/13/2024 Address [address] [place] [address] Care Team Providers Care Loader Unloader Name Role Phone Sherman Prabhakar MD Primary Care Provider Faisal Heller MD Primary Care Provider Stephany Jackson MD Primary Care Provider Un Jose Acosta MD Primary Care Provider [phone] Nick Caldera MD Primary Care Provider oJse Marin MD Primary Care Provider [phone] Encounter Details Date Type Department Care Team Description 04/05/2011 [facility] Medical Records [address] [place] [address] Dave Madison MD Social History Tobacco Use Types Packs/Day [...] on filedocumented in this encounter Care Teams Loader Unloader Relationship Specialty Start Date End Date Sherman Prabhakar MD PCP - General 07/20/07 05/30/14 Faisal Hernández MD PCP - General Internal Medicine 05/31/14 10/06/16 Stephany Canales MD PCP - General Internal Medicine 10/07/16 Jose Geiger MD [address] [place] [address] PCP - General Internal Medicine 04/04/19 12/26/19 Nick Caldera MD [address] [place] [address] PCP - General Internal Medicine 12/27/19 01/02/20 Jose Geiger MD [address] [place] [address] PCP - General Internal Medicine 01/03/20 documented as of this encounter
[2025-07-08 11:04] LABS: Leukocytes Stool Qualitative NEGATIVE (NEGATIVE)
[2025-07-08 12:12] LABS: E. coli EAEC Not Detected (Not Detect.); E. coli EPEC Detected (Not Detect.); E. coli ETEC Not Detected (Not Detect.); E. coli STEC Not Detected (Not Detect.); Shigella sp./EIEC Not Detected (Not Detect.)
== END 2025-07-07 00:01 | disposition home or self-care (01) ==
LOC: HO.LNP
PROVIDERS: Visit Provider Internal Medicine Gastroenterology
DX: R19.7 Diarrhea, unspecified (principal)
CPT/HCPCS: 82656; 82705; 87507; 89055